=== PATIENT | male | born 1980 | race Caucasian/White ===

== ENCOUNTER 2016-06-27 03:19 | Emergency (ER) | payer OTHER ==
[2016-06-27] MEDS ORDERED: NORMAL SALINE 10 ML SYRINGE FLUSH IVP PRN (03:31)
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
[2016-06-27] MEDS ORDERED: ONDANSETRON 4 MG/2 ML VIAL IVP ONE (03:32)
[2016-06-27] MEDS ORDERED: fentaNYL Inj 100 MCG/2 ML VIAL IVP ONE ×2 (03:32→03:58)
[2016-06-27] MEDS ORDERED: Sodium Chloride 0.9% 1,000 ML PRIMARY IV ONE (03:32)
[2016-06-27 03:46] LABS: BASOPHILS # (AUTO) 0.03 10*3/UL; BASOPHILS % (AUTO) 0.3 % (0-1); EOSINOPHILS % (AUTO) 3.4 % (0-8); HEMATOCRIT 39.2 % (42.0-52.0); HEMOGLOBIN 13.1 g/dL (14.0-18.0); IMM GRAN % (AUTO) 0.3 % (0-5); IMM GRAN# (AUTO) 0.03 10*3/UL; LYMPHOCYTES # (AUTO) 0.97 10*3/uL; LYMPHOCYTES % (AUTO) 8.1 % (10-50); MEAN CORPUSCULAR HEMOGLOBIN 27.5 PG (27-31); MEAN CORPUSCULAR HGB CONC 33.4 g/dL (33-37); MEAN PLATELET VOLUME 9.3 FL (7.4-12.2); MONOCYTES # (AUTO) 1.21 10*3/UL (0.3-0.8); MONOCYTES % (AUTO) 10.1 % (5-15); NEUTROPHILS # (AUTO) 9.32 10*3/UL; NEUTROPHILS % (AUTO) 77.8 % (50-80); RDW COEFFICIENT OF VARIATION 14.8 % (11.5-14.5); RED BLOOD COUNT 4.77 10^6/uL (4.70-6.10); WHITE BLOOD COUNT 11.97 10^3/uL (4.8-10.8)
[2016-06-27 03:48] LABS: PLATELET MORPHOLOGY COMMENT NORMAL MORPHOLOGY (NORM)
[2016-06-27 03:56] VITALS: TEMP 96.9
[2016-06-27 03:56] LABS: ASPARTATE AMINO TRANSFERASE 17 IU/L (21-57); BILIRUBIN,TOTAL 0.9 mg/dL (0.3-1.2); BLOOD UREA NITROGEN 6 mg/dL (7-22); C-REACTIVE PROTEIN 4.1 mg/dL (0.0-0.9); CALCIUM 9.8 mg/dL (8.7-10.7); CHLORIDE 103 meq/L (98-112); EST GLOMERULAR FILTRATION > 60 (>60 ml/min/1.73m(2)); GLUCOSE 126 mg/dL (78-110); POTASSIUM 3.9 meq/L (3.8-5.2); SODIUM 139 meq/L (135-145); TOTAL PROTEIN 8.4 g/dL (6.1-8.0)
--- NOTE | 2016-06-27 04:22 | DI ---
HISTORY: Abdominal pain. COMPARISON: None available. FINDINGS: A single frontal view of the chest reveals clear lungs with no effusion, consolidation, or pneumothorax. The cardiomediastinal silhouette is within normal limits. Flat and upright views of the abdomen reveal several air-fluid levels scattered about the abdomen with stool and gas in the dis tribution of the colon to the distal rectum. This is a nonspecific bowel gas pattern. Surgical mate rial projects over the mid abdomen and right lower quadrant. No free intraperitoneal air is detected . There are no suspicious calcific densities in the distribution of the kidneys or renal or collecti ng system. Osseous structures are normal for age. The soft tissues are unremarkable. IMPRESSION: 1. Flat and upright views of the abdomen reveal several air-fluid levels scattered about the abdomen with stool and gas in the distribution of the colon to the distal rectum. Surgical material projects over the mid abdomen and right lower quadrant.
[2016-06-27 04:26] LABS: ERYTHROCYTE SEDIMENTATION RATE 41 MM/HR (0-15)
[2016-06-27 04:56] VITALS: RESP 18
== END 2016-06-27 04:55 | disposition home or self-care (01) ==
LOC: ER 03:19
DX: K50.10 Crohn's disease of large intestine without complications (principal); R19.7 Diarrhea, unspecified; R11.2 Nausea with vomiting, unspecified; R10.84 Generalized abdominal pain
CPT/HCPCS: 74022; 80053; 83690; 85025; 85652; 86140; 96361; 96374; 96375; 99283 ×2; J3010; J2405; J7030

== ENCOUNTER 2016-06-27 05:35 | Inpatient (IN) | payer OTHER ==
[2016-06-27] MEDS ORDERED: HYDROmorphone 2 MG/1 ML IVP ONE (05:44)
[2016-06-27] MEDS ORDERED: NORMAL SALINE 10 ML SYRINGE FLUSH IVP PRN (05:44)
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
[2016-06-27] MEDS ORDERED: ONDANSETRON 4 MG/2 ML VIAL IVP ONE (06:02)
[2016-06-27] MEDS ORDERED: ONDANSETRON 4 MG/2 ML VIAL ONE (06:03)
--- NOTE | 2016-06-27 07:31 | DI ---
HISTORY: Abdominal pain with Crohn's disease. Evaluate for complications. COMPARISON: 06/06/2016. TECHNIQUE: Multiple CT images were obtained through the abdomen and pelvis with oral and iv contrast . FINDINGS: The lung bases are clear. The liver, gallbladder, spleen and pancreas are unremarkable. There is an umbilical hernia containing a short segment of small bowel. This is the approximate loca tion where the transition occurs from the dilated, more distal small bowel to the normal caliber smal l bowel. There are some very vague inflammatory changes surrounding the descending colon with thickening of th e distal descending colon. Some of the inflammatory changes were seen on the prior examination, but there was not as much thickening of the distal descending colon. There is no fluid collection. There is thickening if the terminal ileum with dilation of approximately 20 cm of small bowel proxima l to the thickening. The distal most portion of the ileum appeared to be of smaller caliber on the p rior examination, but there was no proximal dilation. IMPRESSION: 1. Thickening and narrowing of the caliber of the distal small bowel with dilated bowel proximally. This is more marked than on the comparison examination when there was no appreciable dilation. 2. Focal thickening of the distal descending colon with proximal inflammatory changes of the descendi ng colon, most of which were seen on the prior examination. The thickening however, is mostly new. Correlate with history of inflammatory bowel disease. Consider colonoscopy and correlate with histor y of inflammatory bowel disease.
--- NOTE | 2016-06-27 08:04 | PDOC ---
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 Crohn's disease. 2. Left arm and wrist tendinitis Surgical History: 1. Multiple abdominal surgeries for Crohn's disease including ostomy with takedown eventually. 2. Recent left arm surgery/carpal tunnel with tendon releases and repair Pertinent Family History: Significant for Crohn's disease in one of his aunts. Past Social History: Quit smoking, drinks sparingly, , has 2 children, and since December has gone back to work. Tobacco Use: Former Smoker Substance Use Type: None Medication / Allergies Home Medications: Home Medications Medication Instructions Recorded Confirmed Type Vedolizumab Inj [Entyvio Inj] 300 mg IV MONTHLY vial 05/13/16 06/27/16 History Hydrocodone/Acetaminophen [[place] 1 - 2 tab PO Q6H PRN #12 tab 06/27/16 06/27/16 Rx 5-325 Tablet] Ondansetron Odt [Zofran ODT] 4 mg PO Q8H PRN #9 tab.rapdis 06/27/16 06/27/16 Rx Allergies/Adverse Reactions: Allergies Allergy/AdvReac Type Severity Reaction Status Date / Time adalimumab [From Humira] Allergy RASH Verified 06/27/16 08:55 meperidine HCl [From Demerol] AdvReac Intermediate VOMITING Verified 06/27/16 08 :55 morphine AdvReac Intermediate VOMITING Verified 06/27/16 08:55 infliximab [From Remicade] AdvReac NOT Verified 06/27/16 08:55 APPLICABLE Review of Systems - Respiratory Respiratory: DENIES: Negative System Review, Cough, Sputum, Dyspnea At Rest, Dyspnea with Exertion, Pleuritic Pain, Hemoptysis, Wheezing, Other, See HPI - Cardiovascular Cardiovascular: DENIES: Negative System Review, Chest Pain, Edema, Syncope, Palpitations, Orthopnea, Paroxysmal Nocturnal Dyspnea, Other, See HPI - Gastrointestinal Gastrointestinal / Abdominal: REPORTS: Diarrhea, Abdominal Pain. DENIES: Nausea , Vomiting Exam - Vitals Vital Signs: Vital Signs Temperature 96.6 F Temperature Source Temporal Artery Scan Pulse Rate [Pulse Oximeter] 82 Pulse Rate 90 Respiratory Rate 15 Blood Pressure [Right Arm] 122/84 Blood Pressure 117/81 Pulse Ox 99 Oxygen Delivery Method Nasal Cannula Height 5 ft 11 in Weight 99.79 kg Assessment and Plan - Patient Problems (1) Abdominal pain Current Visit: No Status: Acute (2) Crohn's colitis Current Visit: No Status: Acute (3) Exacerbation of Crohn's disease Current Visit: No Status: Acute - Assessment / Plan Additional Assessment/Plan Details: #1 Crohn's exacerbation we will start steroids at 125 every 6+ Levaquin to try to get this flareup under control his bowel movements are tender to 12 of the loose stools. Taper him off fairly quickly and put him on a tapering dose steroids at that point he will go see the doctors at [facility] in [place] I will also consult to Dr. Carbajal general surgeon to review his CAT scan to make sure we are not dealing with the obstruction I discussed the above plan with the patient which agrees
[2016-06-27] MEDS ORDERED: methylPREDNISolone 125 MG/2 ML VIAL IVP SCH (08:15)
[2016-06-27] MEDS ORDERED: ONDANSETRON 4 MG/2 ML VIAL IVP PRN (08:51)
[2016-06-27] MEDS ORDERED: cefTRIAXone Inj 2 GM in Sodium Chloride 0.9% 100 ML IV SCH (08:51)
[2016-06-27] MEDS: 1/2NS + 20mEq KCL 1,000 ML PRIMARY IV SCH ×2 (09:15→21:15)
[2016-06-27] MEDS: NORMAL SALINE 10 ML SYRINGE FLUSH IVP PRN ×2 (09:16→18:51)
[2016-06-27] MEDS: metroNIDAZOLE 500mg (Premix) 500 MG in Premix 1 BAG IV SCH ×2 (09:16→16:48)
[2016-06-27] MEDS: methylPREDNISolone 125 MG/2 ML VIAL IVP SCH ×3 (09:17→21:25)
[2016-06-27] MEDS: HYDROmorphone 2 MG/1 ML IVP PRN ×3 (09:17→18:50)
[2016-06-27] MEDS: HEPARIN 5000 UNIT/1 ML SUBCUT SCH ×2 (09:59→16:48)
--- NOTE | 2016-06-27 14:32 | CONSULT ---
Consult Note - Consult Consult Date: 06/27/16 Reason for Consult: PreOp Consulation : General Surgery Requesting Physician: Dr. Wilkinson'chaim Primary Care Provider: CHRIST LEVY - History of Present Illness History of Present Illness: Patient is a 35-year-old male with an exacerbation of Crohn's disease. The patient was admitted and I am asked to see him for evaluation. Patient was diagnosed with Crohn's 11 years ago. He's had 2 abdominal surgeries for his Crohn disease. He had a resection with an ileostomy which was followed by a takedown of his ileostomy. He has a hernia at his ileostomy site as well as his umbilicus. These are chronic. Those are not bothering him today. CT scan in the emergency room shows increased thickening and inflammatory changes around the terminal ileum. There is some proximal dilation of the small bowel. There are some inflammatory changes of the descending colon as well. Patient has been started on antibiotics and steroids. Patient is followed by gastroenterology. He's been seen at the [facility] as well. He is tried all the usual medications with no benefit and some of them lead to complications. They are treating his exacerbations with steroids. He is to have a colonoscopy in the relatively near future. Patient has had multiple perianal procedures for fistulas and abscesses. 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 At the time I visited the patient he is feeling quite comfortable. Review of Systems - Gastrointestinal Gastrointestinal / Abdominal: REPORTS: Abdominal Pain, See HPI Past Medical History Medical History: 1. Crohn's disease. 2. Left arm and wrist tendinitis. 3. GERD. 4. Drug-induced Lupus. Surgical History: 1. Two abdominal surgeries for Crohn's disease including resection with ileostomy and subsequent reversal. 2. Left arm surgery/carpal tunnel with tendon releases and repair. 3. Multiple perianal surgeries for Crohn's disease. 4. Appendectomy. 5. Multiple colonoscopies. Pertinent Family History: Significant for Crohn's disease in one of his aunts. Past Social History: Quit smoking, drinks sparingly, , has 2 children, and since December has gone back to work. Tobacco Use: Former Smoker Substance Use Type: None Medication / Allergies Home Medications: Home Medications Medication Instructions Recorded Confirmed Type Vedolizumab Inj [Entyvio Inj] 300 mg IV MONTHLY vial 05/13/16 06/27/16 History Hydrocodone/Acetaminophen [[place] 1 - 2 tab PO Q6H PRN #12 tab 06/27/16 06/27/16 Rx 5-325 Tablet] Ondansetron Odt [Zofran ODT] 4 mg PO Q8H PRN #9 tab.rapdis 06/27/16 06/27/16 Rx Allergies/Adverse Reactions: Allergies Allergy/AdvReac Type Severity Reaction Status Date / Time adalimumab [From Humira] Allergy RASH Verified 06/27/16 08:55 meperidine HCl [From Demerol] AdvReac Intermediate VOMITING Verified 06/27/16 08 :55 morphine AdvReac Intermediate VOMITING Verified 06/27/16 08:55 infliximab [From Remicade] AdvReac NOT Verified 06/27/16 08:55 APPLICABLE Exam - Vitals Vital Signs: Vital Signs Temperature 97.6 F Temperature Source Temporal Artery Scan Pulse Rate [Pulse Oximeter] 80 Respiratory Rate 18 Blood Pressure [Right Arm] 117/77 Pulse Ox 96 Oxygen Delivery Method Room Air Height 5 ft 11 in Weight 102.058 kg - General General Appearance: POSITIVE: No Acute Distress, Cooperative - Respiratory Respiratory Exam: POSITIVE: Clear to Auscultation - Bilaterally, Breathing Non Labored - Cardiovascular Cardiovascular Exam: POSITIVE: RRR, No Murmur - GI/Abdominal GI/Abdominal Exam: POSITIVE: Normal Bowel Sounds, Non Tender, Non Distended, Soft, Hernia (Hernia at the umbilicus which is soft and nontender. Probable hernia at the ileostomy site. Certainly not an acute surgical abdomen at this time.) - Rectal Rectal Exam: POSITIVE: Deferred - Neurological Neurological Exam: POSITIVE: Alert, Oriented x 3 - Psychiatric Psychiatric Exam: POSITIVE: Normal Affect, Normal Mood Results - Labs Labs - Last 24 Hours: Laboratory Results 06/27/16 Range/Units 09:10 Lactic Acid < 0.5 L (0.70-2.10) MMOL/L - Imaging Status: Image Reviewed by Me, Report Reviewed by Me Assessment and Plan - Patient Problems (1) Crohns disease Current Visit: No Status: Acute Diagnosis Date: 06/27/16 Comment: Patient has an acute exacerbation of his chronic Crohn's disease. He is being treated with steroids and antibiotics which is appropriate. Patient does not have an acute or surgical abdomen. Please call if I can be of further assistance. The patient does need surgery would recommend transfer to a higher level of care. (2) Abdominal wall hernia Current Visit: Yes Status: Chronic Comment: Chronic. Asymptomatic.
[2016-06-28] MEDS: HEPARIN 5000 UNIT/1 ML SUBCUT SCH ×3 (01:37→16:50)
[2016-06-28] MEDS: metroNIDAZOLE 500mg (Premix) 500 MG in Premix 1 BAG IV SCH ×3 (01:38→16:50)
[2016-06-28] MEDS: NORMAL SALINE 10 ML SYRINGE FLUSH IVP PRN ×5 (01:52→17:30)
[2016-06-28] MEDS: methylPREDNISolone 125 MG/2 ML VIAL IVP SCH ×4 (01:52→19:30)
[2016-06-28 05:35] LABS: BASOPHILS # (AUTO) 0 10*3/UL; BASOPHILS % (AUTO) 0 % (0-1); EOSINOPHILS % (AUTO) 0 % (0-8); HEMATOCRIT 34.6 % (42.0-52.0); HEMOGLOBIN 11.2 g/dL (14.0-18.0); IMM GRAN % (AUTO) 0.1 % (0-5); IMM GRAN# (AUTO) 0.01 10*3/UL; LYMPHOCYTES # (AUTO) 0.68 10*3/uL; LYMPHOCYTES % (AUTO) 8.1 % (10-50); MEAN CORPUSCULAR HEMOGLOBIN 27.3 PG (27-31); MEAN CORPUSCULAR HGB CONC 32.4 g/dL (33-37); MEAN PLATELET VOLUME 9.8 FL (7.4-12.2); MONOCYTES # (AUTO) 0.19 10*3/UL (0.3-0.8); MONOCYTES % (AUTO) 2.3 % (5-15); NEUTROPHILS % (AUTO) 89.5 % (50-80); RDW COEFFICIENT OF VARIATION 14.7 % (11.5-14.5); RED BLOOD COUNT 4.11 10^6/uL (4.70-6.10); WHITE BLOOD COUNT 8.38 10^3/uL (4.8-10.8)
[2016-06-28 05:40] LABS: PLATELET MORPHOLOGY COMMENT NORMAL MORPHOLOGY (NORM)
[2016-06-28 05:48] LABS: ASPARTATE AMINO TRANSFERASE 12 IU/L (21-57); BILIRUBIN,TOTAL 0.6 mg/dL (0.3-1.2); BLOOD UREA NITROGEN 5 mg/dL (7-22); BUN/CREATININE RATIO 6.25 (6-20); CALCIUM 9.2 mg/dL (8.7-10.7); CHLORIDE 103 meq/L (98-112); CREATININE 0.8 mg/dL (0.70-1.50); EST GLOMERULAR FILTRATION > 60 (>60 ml/min/1.73m(2)); GLUCOSE 145 mg/dL (78-110); POTASSIUM 4.1 meq/L (3.8-5.2); SODIUM 140 meq/L (135-145); TOTAL PROTEIN 7.1 g/dL (6.1-8.0)
[2016-06-28 05:52] LABS: AMYLASE < 30 U/L (30-110)
[2016-06-28] MEDS: 1/2NS + 20mEq KCL 1,000 ML PRIMARY IV SCH ×2 (06:59→19:29)
[2016-06-28] MEDS ORDERED: Levofloxacin 750mg (Premix) 750 MG in Dextrose 1 BAG IV SCH (09:00)
[2016-06-28] MEDS: KETOROLAC 30 MG/1 ML VIAL IVP PRN ×3 (11:34→23:03)
--- NOTE | 2016-06-28 11:49 | PDOC(PROG) ---
Interval History: Patient feels much better today pain is resolved the number of diarrhea episodes have decreased down to around 8 from 12 overall feels improved Objective : Data - Labs CBC and BMP: 06/28/16 04:51 06/28/16 04:51 Labs - Last 24 Hours: Laboratory Results 06/28/16 Range/Units 04:51 WBC 8.38 (4.8-10.8) 10^3/uL RBC 4.11 L (4.70-6.10) 10^6/uL Hgb 11.2 L (14.0-18.0) g/dL Hct 34.6 L (42.0-52.0) % MCV 84.2 (80-90) FL MCH 27.3 (27-31) PG MCHC 32.4 L (33-37) g/dL RDW Std Deviation 44.0 (39-50) fL RDW Coeff of Fidel 14.7 H (11.5-14.5) % Plt Count 451 H (140-350) 10*3/uL MPV 9.8 (7.4-12.2) FL Immature Gran % (Auto) 0.1 (0-5) % Neut % (Auto) 89.5 H (50-80) % Lymph % (Auto) 8.1 L (10-50) % Williamson % (Auto) 2.3 L (5-15) % Eos % (Auto) 0 (0-8) % Baso % (Auto) 0 (0-1) % Immature Gran # (Auto) 0.01 10*3/UL Neut # (Auto) 7.50 10*3/UL Lymph # (Auto) 0.68 10*3/uL Williamson # (Auto) 0.19 L (0.3-0.8) 10*3/UL Eos # (Auto) 0 10*3/UL Baso # (Auto) 0 10*3/UL WBC Morphology Comment Normal morphology (NORM) Plt Morphology Comment Normal morphology (NORM) RBC Morph Comment Normal morphology (NORM) Sodium 140 (135-145) meq/L Potassium 4.1 (3.8-5.2) meq/L Chloride 103 (98-112) meq/L Carbon Dioxide 24 (23-33) meq/L Anion Gap 13 (5-20) BUN 5 L (7-22) mg/dL Creatinine 0.8 (0.70-1.50) mg/dL Estimated GFR > 60 (>60 ml/min/1.73m(2)) BUN/Creatinine Ratio 6.25 (6-20) Glucose 145 H (78-110) mg/dL Calculated Osmolality 289.0 (267-292) mOsm/kg Calcium 9.2 (8.7-10.7) mg/dL Total Bilirubin 0.6 (0.3-1.2) mg/dL AST 12 L (21-57) IU/L ALT 25 (21-72) IU/L Alkaline Phosphatase 89 (38-126) IU/L Total Protein 7.1 (6.1-8.0) g/dL Albumin 3.8 (3.5-4.8) g/dL Globulin 3.3 (2.50-4.10) g/dL Albumin/Globulin Ratio 1.10 L (1.3-2.0) mg/g Amylase < 30 L (30-110) U/L Lipase 28 (23-300) IU/L Objective : Exam - General General Appearance: Cooperative - Respiratory Respiratory Exam: Clear to Auscultation - Bilaterally, Breathing Non Labored, Normal To Percussion - Cardiovascular Cardiovascular Exam: RRR, No Murmur, No Clicks - GI/Abdominal GI/Abdominal Exam: Non Tender, Non Distended, Soft - Extremities Extremities Exam: No Clubbing Present, No Edema Present, No Cyanosis Present Assessment and Plan - Patient Problems (1) Abdominal pain Current Visit: No Status: Acute (2) Crohn's colitis Current Visit: No Status: Acute (3) Exacerbation of Crohn's disease Current Visit: No Status: Acute - Assessment / Plan Additional Assessment/Plan Details: #1 exacerbation of Crohn's colitis responding well to antibiotics and steroids I will decrease steroids from 125 every 4-60 every 4 pain is resolved number of diarrhea episodes of gone down to 8 from 13 most likely patient will need a tapering dose of steroids and follow up with medical clinic the is already making appointments continue antibiotics and IV fluids
[2016-06-28] MEDS: HYDROmorphone 2 MG/1 ML IVP PRN ×3 (13:22→22:49)
[2016-06-28] MEDS ORDERED: Pantoprazole Inj 40 MG in Normal Saline Flush 10 ML IVP ONE (20:18)
[2016-06-29] MEDS: methylPREDNISolone 125 MG/2 ML VIAL IVP SCH ×2 (01:30→08:10)
[2016-06-29] MEDS: HEPARIN 5000 UNIT/1 ML SUBCUT SCH ×2 (01:30→09:10)
[2016-06-29] MEDS: metroNIDAZOLE 500mg (Premix) 500 MG in Premix 1 BAG IV SCH ×2 (01:30→08:22)
[2016-06-29] MEDS: HYDROmorphone 2 MG/1 ML IVP PRN (05:02)
[2016-06-29] MEDS: KETOROLAC 30 MG/1 ML VIAL IVP PRN (05:05)
[2016-06-29] MEDS: 1/2NS + 20mEq KCL 1,000 ML PRIMARY IV SCH (05:06)
[2016-06-29 05:34] LABS: BASOPHILS # (AUTO) 0 10*3/UL; BASOPHILS % (AUTO) 0 % (0-1); EOSINOPHILS % (AUTO) 0 % (0-8); HEMATOCRIT 32.4 % (42.0-52.0); HEMOGLOBIN 10.2 g/dL (14.0-18.0); IMM GRAN % (AUTO) 0.1 % (0-5); IMM GRAN# (AUTO) 0.01 10*3/UL; LYMPHOCYTES # (AUTO) 0.53 10*3/uL; LYMPHOCYTES % (AUTO) 6.9 % (10-50); MEAN CORPUSCULAR HEMOGLOBIN 26.9 PG (27-31); MEAN CORPUSCULAR HGB CONC 31.5 g/dL (33-37); MEAN PLATELET VOLUME 9.7 FL (7.4-12.2); MONOCYTES # (AUTO) 0.56 10*3/UL (0.3-0.8); MONOCYTES % (AUTO) 7.3 % (5-15); NEUTROPHILS # (AUTO) 6.57 10*3/UL; NEUTROPHILS % (AUTO) 85.7 % (50-80); RDW COEFFICIENT OF VARIATION 14.9 % (11.5-14.5); RED BLOOD COUNT 3.79 10^6/uL (4.70-6.10); WHITE BLOOD COUNT 7.67 10^3/uL (4.8-10.8)
[2016-06-29 05:47] LABS: ASPARTATE AMINO TRANSFERASE 13 IU/L (21-57); BILIRUBIN,TOTAL 0.3 mg/dL (0.3-1.2); BLOOD UREA NITROGEN 7 mg/dL (7-22); BUN/CREATININE RATIO 8.75 (6-20); CALCIUM 9.2 mg/dL (8.7-10.7); CHLORIDE 104 meq/L (98-112); CREATININE 0.8 mg/dL (0.70-1.50); EST GLOMERULAR FILTRATION > 60 (>60 ml/min/1.73m(2)); GLUCOSE 139 mg/dL (78-110); POTASSIUM 4.2 meq/L (3.8-5.2); SODIUM 142 meq/L (135-145); TOTAL PROTEIN 6.5 g/dL (6.1-8.0)
[2016-06-29 06:03] LABS: PLATELET MORPHOLOGY COMMENT NORMAL MORPHOLOGY (NORM)
[2016-06-29 08:04] VITALS: RESP 18
[2016-06-29] MEDS ORDERED: HYDROcodone-APAP 5 MG -325 MG TABLET PO PRN (08:37)
--- NOTE | 2016-06-29 08:47 | PDOC(PROG) ---
Date and Time of Service: 06/29/2016 8:43 AM Interval History: Subjective Patient feels much better compared to when he came in. He has a history of Crohn's disease for 11 years or so, he tried multiple medications to control his disease last year none seem to work. He is now on Entyvio which he thinks is not working. He is been on prednisone since October and they tapered him off that and was stopped about a month ago. They tried him also on 6-MP and It sounded like he took it only for a month. He came in because of multiple bowel movements maybe more than 10 times and abdominal pain. He said he normally lives with about 3 or 4 bowel movements a day. He is been to the [facility] last time he was there was in December, he is trying to get another appointment with them. He said since been on high-dose steroid he feels better his bowel movements seem to be improved. Had 3 or 4 bowel movements overnight. There is diarrhea. Pain also seems to be improved. He wants to go home. Objective : Data - Labs CBC and BMP: 06/29/16 05:05 06/29/16 05:05 Labs - Last 24 Hours: Laboratory Results 06/29/16 Range/Units 05:05 WBC 7.67 (4.8-10.8) 10^3/uL RBC 3.79 L (4.70-6.10) 10^6/uL Hgb 10.2 L (14.0-18.0) g/dL Hct 32.4 L (42.0-52.0) % MCV 85.5 (80-90) FL MCH 26.9 L (27-31) PG MCHC 31.5 L (33-37) g/dL RDW Std Deviation 45.1 (39-50) fL RDW Coeff of Fidel 14.9 H (11.5-14.5) % Plt Count 427 H (140-350) 10*3/uL MPV 9.7 (7.4-12.2) FL Immature Gran % (Auto) 0.1 (0-5) % Neut % (Auto) 85.7 H (50-80) % Lymph % (Auto) 6.9 L (10-50) % Ows[place] % (Auto) 7.3 (5-15) % Eos % (Auto) 0 (0-8) % Baso % (Auto) 0 (0-1) % Immature Gran # (Auto) 0.01 10*3/UL Neut # (Auto) 6.57 10*3/UL Lymph # (Auto) 0.53 10*3/uL Owsley # (Auto) 0.56 (0.3-0.8) 10*3/UL Eos # (Auto) 0 10*3/UL Baso # (Auto) 0 10*3/UL WBC Morphology Comment Normal morphology (NORM) Plt Morphology Comment Normal morphology (NORM) RBC Morph Comment Normal morphology (NORM) Sodium 142 (135-145) meq/L Potassium 4.2 (3.8-5.2) meq/L Chloride 104 (98-112) meq/L Carbon Dioxide 27 (23-33) meq/L Anion Gap 11 (5-20) BUN 7 (7-22) mg/dL Creatinine 0.8 (0.70-1.50) mg/dL Estimated GFR > 60 (>60 ml/min/1.73m(2)) BUN/Creatinine Ratio 8.75 (6-20) Glucose 139 H (78-110) mg/dL Calculated Osmolality 293.0 H (267-292) mOsm/kg Calcium 9.2 (8.7-10.7) mg/dL Total Bilirubin 0.3 (0.3-1.2) mg/dL AST 13 L (21-57) IU/L ALT 27 (21-72) IU/L Alkaline Phosphatase 80 (38-126) IU/L Total Protein 6.5 (6.1-8.0) g/dL Albumin 3.4 L (3.5-4.8) g/dL Globulin 3.1 (2.50-4.10) g/dL Albumin/Globulin Ratio 1.00 L (1.3-2.0) mg/g Objective : Exam - General General Appearance: No Acute Distress, Cooperative - Head Head Exam: Normal Inspection - Eye Eye Exam: Normal Appearance - ENT ENT Exam: Normal Exam - Neck Neck Exam: Normal Inspection - Respiratory Respiratory Exam: Clear to Auscultation - Bilaterally - Cardiovascular Cardiovascular Exam: RRR - GI/Abdominal GI/Abdominal Exam: Normal Bowel Sounds, Non Tender, Non Distended, Soft - Rectal Rectal Exam: Deferred - External Exam: Deferred - Extremities Extremities Exam: Normal Inspection - Back Back Exam: Normal Inspection - Neurological Neurological Exam: Alert, Oriented x 3, CN II-XII Intact, Moves All Extremities Equally - Psychiatric Psychiatric Exam: Normal Affect - Integumentary Integumentary Exam: Normal Color Assessment and Plan - Patient Problems (1) Crohn's disease, acute Status: Acute Comment: He wants to go home I think we'll try to switch him to oral steroid DC the IV steroid, DC the fluid switch antibiotics to oral. We'll check on him in the afternoon and see if he still okay then maybe send him home. Also switch to oral pain medications. I did tell him if we discharge him start him on a high dose of steroid but he needs additional medication so he may need to go back on the 6-MP it seems that he ran out of the 6-MP and I suggested that he follow-up also with a client services assistant. Qualifiers: Digestive disease complication type: without complication Qualifier Code(s): (K50.90) Crohn's disease, unspecified, without complications (2) DVT prophylaxis Status: Acute Comment: He is on heparin.
[2016-06-29] MEDS ORDERED: Pantoprazole Inj 40 MG in Normal Saline Flush 10 ML IVP SCH (09:00)
[2016-06-29] MEDS ORDERED: PANTOPRAZOLE 40 MG TABLET PO SCH (09:00)
[2016-06-29 11:26] VITALS: TEMP 98.2
[2016-06-29] MEDS ORDERED: predniSONE Tab 20 MG TAB PO SCH (11:30)
--- NOTE | 2016-06-29 12:29 | DCSUMMARY ---
Hospitalization Summary Admit Date: 06/27/16 Discharge Date: 06/29/16 Hospital Course: Discharge instruction 1. Exacerbation of Crohn's disease 2. History of drug-induced lupus secondary to Remicade Hospital course This is a 35 years old male with medical history significant for history of Crohn's disease for 11 years, he was on multiple medications including biological agents that included Humira last time he was here he was on Remicade however that induced lupus and he was taking off that he was on prednisone and recently was on 6-MP and Entyvio, the prednisone he was on since October and they tapered him off about 6 weeks ago. He was on the 6-MP for about a month and was stopped about a month ago. He came into the hospital because of increasing abdominal pain and multiple bowel movements and had a CT of the abdomen which showed thickening and narrowing of the caliber of the distal small bowel with dilated bowel proximally this is more marked than on the previous examination in addition he had focal thickening of the distal descending colon with proximal changes of the descending colon, most of which were seen on the prior examination. The thickening however is mostly new. Patient was admitted to the hospital as an exacerbation of Crohn's disease he was started on high doses of Solu Medrol. In addition was started also on Flagyl and Levaquin. I saw him on the day of discharge he was feeling much better his pain seemed to be improved. The frequency of his bowel movement also lessened. We switched, him to oral prednisone oral pain medication I checked later on him at lunchtime and he is still doing better we thought that he could be discharged home on high oral dose prednisone and Levaquin and Flagyl. I did tell him that will keep him on such dosage of prednisone until he see GI, which he'll try to get an appointment with and then at that time if they agree start tapering the prednisone off. I think likely though he'll need an additional agent to try to control his disease and that probably would help lowering the dosage of steroid. He also will try to get an appointment with [facility]. Laboratory Results 06/27/16 06/28/16 06/29/16 Range/Units 09:10 04:51 05:05 WBC 8.38 7.67 (4.8-10.8) 10^3/uL RBC 4.11 L 3.79 L (4.70-6.10) 10^6/uL Hgb 11.2 L 10.2 L (14.0-18.0) g/dL Hct 34.6 L 32.4 L (42.0-52.0) % MCV 84.2 85.5 (80-90) FL MCH 27.3 26.9 L (27-31) PG MCHC 32.4 L 31.5 L (33-37) g/dL RDW Std Deviation 44.0 45.1 (39-50) fL RDW Coeff of Fidel 14.7 H 14.9 H (11.5-14.5) % Plt Count 451 H 427 H (140-350) 10*3/uL MPV 9.8 9.7 (7.4-12.2) FL Immature Gran % (Auto) 0.1 0.1 (0-5) % Neut % (Auto) 89.5 H 85.7 H (50-80) % Lymph % (Auto) 8.1 L 6.9 L (10-50) % Jones % (Auto) 2.3 L 7.3 (5-15) % Eos % (Auto) 0 0 (0-8) % Baso % (Auto) 0 0 (0-1) % Immature Gran # (Auto) 0.01 0.01 10*3/UL Neut # (Auto) 7.50 6.57 10*3/UL Lymph # (Auto) 0.68 0.53 10*3/uL Jones # (Auto) 0.19 L 0.56 (0.3-0.8) 10*3/UL Eos # (Auto) 0 0 10*3/UL Baso # (Auto) 0 0 10*3/UL WBC Morphology Comment Normal morphology Normal morphology (NORM) Plt Morphology Comment Normal morphology Normal morphology (NORM) RBC Morph Comment Normal morphology Normal morphology (NORM) Sodium 140 142 (135-145) meq/L Potassium 4.1 4.2 (3.8-5.2) meq/L Chloride 103 104 (98-112) meq/L Carbon Dioxide 24 27 (23-33) meq/L Anion Gap 13 11 (5-20) BUN 5 L 7 (7-22) mg/dL Creatinine 0.8 0.8 (0.70-1.50) mg/dL Estimated GFR > 60 > 60 (>60 ml/min/1.73m(2)) BUN/Creatinine Ratio 6.25 8.75 (6-20) Glucose 145 H 139 H (78-110) mg/dL Calculated Osmolality 289.0 293.0 H (267-292) mOsm/kg Lactic Acid < 0.5 L (0.70-2.10) MMOL/L Calcium 9.2 9.2 (8.7-10.7) mg/dL Total Bilirubin 0.6 0.3 (0.3-1.2) mg/dL AST 12 L 13 L (21-57) IU/L ALT 25 27 (21-72) IU/L Alkaline Phosphatase 89 80 (38-126) IU/L Total Protein 7.1 6.5 (6.1-8.0) g/dL Albumin 3.8 3.4 L (3.5-4.8) g/dL Globulin 3.3 3.1 (2.50-4.10) g/dL Albumin/Globulin Ratio 1.10 L 1.00 L (1.3-2.0) mg/g Amylase < 30 L (30-110) U/L Lipase 28 (23-300) IU/L Discharge instruction Diet clear liquid advance as started Medications Laboratory Results 06/27/16 06/28/16 06/29/16 Range/Units 09:10 04:51 05:05 WBC 8.38 7.67 (4.8-10.8) 10^3/uL RBC 4.11 L 3.79 L (4.70-6.10) 10^6/uL Hgb 11.2 L 10.2 L (14.0-18.0) g/dL Hct 34.6 L 32.4 L (42.0-52.0) % MCV 84.2 85.5 (80-90) FL MCH 27.3 26.9 L (27-31) PG MCHC 32.4 L 31.5 L (33-37) g/dL RDW Std Deviation 44.0 45.1 (39-50) fL RDW Coeff of Fidel 14.7 H 14.9 H (11.5-14.5) % Plt Count 451 H 427 H (140-350) 10*3/uL MPV 9.8 9.7 (7.4-12.2) FL Immature Gran % (Auto) 0.1 0.1 (0-5) % Neut % (Auto) 89.5 H 85.7 H (50-80) % Lymph % (Auto) 8.1 L 6.9 L (10-50) % Jones % (Auto) 2.3 L 7.3 (5-15) % Eos % (Auto) 0 0 (0-8) % Baso % (Auto) 0 0 (0-1) % Immature Gran # (Auto) 0.01 0.01 10*3/UL Neut # (Auto) 7.50 6.57 10*3/UL Lymph # (Auto) 0.68 0.53 10*3/uL Jones # (Auto) 0.19 L 0.56 (0.3-0.8) 10*3/UL Eos # (Auto) 0 0 10*3/UL Baso # (Auto) 0 0 10*3/UL WBC Morphology Comment Normal morphology Normal morphology (NORM) Plt Morphology Comment Normal morphology Normal morphology (NORM) RBC Morph Comment Normal morphology Normal morphology (NORM) Sodium 140 142 (135-145) meq/L Potassium 4.1 4.2 (3.8-5.2) meq/L Chloride 103 104 (98-112) meq/L Carbon Dioxide 24 27 (23-33) meq/L Anion Gap 13 11 (5-20) BUN 5 L 7 (7-22) mg/dL Creatinine 0.8 0.8 (0.70-1.50) mg/dL Estimated GFR > 60 > 60 (>60 ml/min/1.73m(2)) BUN/Creatinine Ratio 6.25 8.75 (6-20) Glucose 145 H 139 H (78-110) mg/dL Calculated Osmolality 289.0 293.0 H (267-292) mOsm/kg Lactic Acid < 0.5 L (0.70-2.10) MMOL/L Calcium 9.2 9.2 (8.7-10.7) mg/dL Total Bilirubin 0.6 0.3 (0.3-1.2) mg/dL AST 12 L 13 L (21-57) IU/L ALT 25 27 (21-72) IU/L Alkaline Phosphatase 89 80 (38-126) IU/L Total Protein 7.1 6.5 (6.1-8.0) g/dL Albumin 3.8 3.4 L (3.5-4.8) g/dL Globulin 3.3 3.1 (2.50-4.10) g/dL Albumin/Globulin Ratio 1.10 L 1.00 L (1.3-2.0) mg/g Amylase < 30 L (30-110) U/L Lipase 28 (23-300) IU/L Follow-up with GI in 1-2 weeks Condition at discharge was stable for discharge Exam - Vitals Vital Signs: Vital Signs Temperature 98.2 F Temperature Source Temporal Artery Scan Pulse Rate [Apical] 80 Pulse Rate [Pulse Oximeter] 78 Respiratory Rate 18 Blood Pressure [Right Arm] 144/85 Pulse Ox 97 Oxygen Delivery Method Room Air Height 5 ft 11 in Weight 224 lb 6.4 oz Patient Problems - Patient Problem List (1) Crohn's disease, acute Status: Acute Qualifiers: Digestive disease complication type: without complication Qualifier Code(s): (K50.90) Crohn's disease, unspecified, without complications (2) DVT prophylaxis Status: Acute
[2016-06-29] MEDS ORDERED: metroNIDAZOLE Tab 500 MG TAB PO SCH (17:00)
== END 2016-06-29 12:33 | disposition home or self-care (01) | DRG 387 ==
LOC: ER 05:35 → MED/SURG 07:55
PROVIDERS: ADMIT Internal Medicine; ATTEND Internal Medicine
DX: K50.90 Crohn's disease, unspecified, without complications (principal); M32.0 Drug-induced systemic lupus erythematosus; T50.995D Adverse effect of other drugs, medicaments and biological substances, subsequent encounter
CPT/HCPCS: 36415; 74177; 80053; 82150; 83605; 83690; 85025; 87641; 94761; 96374; 96375; 99285; J0696; J1170; J1644; J1885; J2405; J3490; J7050; J7512

== ENCOUNTER → 2016-09-02 | Outpatient (CLI) | payer OTHER ==
[2016-09-04 13:49] LABS: PARASITIC EXAM FIN 1421 (())
== END ==
LOC: LAB 15:44
PROVIDERS: ATTEND Internal Medicine Gastroenterology
DX: R19.7 Diarrhea, unspecified (principal)
CPT/HCPCS: 83630; 87046; 87177; 87209; 87328; 87329; 87493

== ENCOUNTER → 2016-09-16 | Outpatient (CLI) | payer OTHER | LOC: MMPC 09:00 | PROVIDERS: ATTEND Family Medicine | DX: K50.90 Crohn's disease, unspecified, without complications (principal); A09 Infectious gastroenteritis and colitis, unspecified | CPT/HCPCS: 99213; G0463 ==

== ENCOUNTER → 2016-09-17 | Outpatient (CLI) | payer OTHER | LOC: LAB 10:59 | PROVIDERS: ATTEND Family Medicine | DX: K50.00 Crohn's disease of small intestine without complications (principal); A09 Infectious gastroenteritis and colitis, unspecified; Z72.0 Tobacco use | CPT/HCPCS: 87046; 87077; 87186; 87493 ==

== ENCOUNTER 2016-09-26 11:13 | Emergency (ER) | payer OTHER ==
[2016-09-26] MEDS ORDERED: NORMAL SALINE 10 ML SYRINGE FLUSH IVP PRN (11:20)
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
[2016-09-26] MEDS: Sodium Chloride 0.9% 1,000 ML PRIMARY IV ONE (11:29)
[2016-09-26] MEDS: ONDANSETRON 4 MG/2 ML VIAL IVP ONE (11:31)
[2016-09-26] MEDS: MORPHINE SULFATE 2 MG/1 ML IVP ONE (11:31)
[2016-09-26 11:43] VITALS: RESP 16; TEMP 97.5
[2016-09-26 11:43] LABS: BASOPHILS # (AUTO) 0.04 10*3/UL; BASOPHILS % (AUTO) 0.4 % (0-1); HEMATOCRIT 41.6 % (42.0-52.0); HEMOGLOBIN 13.1 g/dL (14.0-18.0); LYMPHOCYTES # (AUTO) 1.01 10*3/uL; MEAN CORPUSCULAR HEMOGLOBIN 26.6 PG (27-31); MEAN CORPUSCULAR HGB CONC 31.5 g/dL (33-37); MEAN CORPUSCULAR VOLUME 84.4 FL (80-90); MONOCYTES # (AUTO) 0.71 10*3/UL (0.3-0.8); NEUTROPHILS # (AUTO) 8.18 10*3/UL; NEUTROPHILS % (AUTO) 80.5 % (50-80); RED BLOOD COUNT 4.93 10^6/uL (4.70-6.10)
[2016-09-26 11:44] LABS: PLATELET MORPHOLOGY COMMENT NORMAL MORPHOLOGY (NORM); RBC MORPHOLOGY COMMENT NORMAL MORPHOLOGY (NORM); WBC MORPHOLOGY COMMENT NORMAL MORPHOLOGY (NORM)
[2016-09-26 11:54] LABS: BLOOD UREA NITROGEN 4 mg/dL (7-22); C-REACTIVE PROTEIN 0.6 mg/dL (0.0-0.9); EST GLOMERULAR FILTRATION > 60 (>60 ml/min/1.73m(2)); LIPASE 48 IU/L (23-300); SERUM ALBUMIN 4.2 g/dL (3.5-4.8)
[2016-09-26] MEDS: KETOROLAC 30 MG/1 ML VIAL IVP ONE (12:13)
[2016-09-26] MEDS: POTASSIUM CHLORIDE 40 MEQ/15 ML UD CUP PO ONE (12:14)
[2016-09-26] MEDS: POTASSIUM CHLORIDE 20 MEQ TAB PO ONE (12:18)
== END 2016-09-26 13:20 | disposition home or self-care (01) ==
LOC: ER 11:13
DX: K50.118 Crohn's disease of large intestine with other complication (principal); K52.89 Other specified noninfective gastroenteritis and colitis; R11.0 Nausea; R10.84 Generalized abdominal pain
CPT/HCPCS: 80053; 83690; 85025; 86140; 96361; 96374; 96375; 99282; 99283; J1885; J2270; J2405; J7030

== ENCOUNTER 2016-11-04 04:21 | Inpatient (IN) | payer OTHER ==
[2016-11-04] MEDS ORDERED: KETOROLAC 30 MG/1 ML VIAL IVP ONE (04:42)
[2016-11-04] MEDS ORDERED: ONDANSETRON 4 MG/2 ML VIAL IVP ONE (04:42)
[2016-11-04] MEDS ORDERED: NORMAL SALINE 10 ML SYRINGE FLUSH IVP PRN ×5 (04:42→07:12)
[2016-11-04] MEDS ORDERED: Sodium Chloride 0.9% 1,000 ML PRIMARY IV ONE ×3 (04:42→19:11)
[2016-11-04] MEDS ORDERED: HYDROmorphone 2 MG/1 ML IVP ONE (04:44)
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
[2016-11-04 04:59] LABS: BASOPHILS # (AUTO) 0.02 10*3/UL; BASOPHILS % (AUTO) 0.2 % (0-1); EOSINOPHILS # (AUTO) 0.01 10*3/UL; EOSINOPHILS % (AUTO) 0.1 % (0-8); HEMATOCRIT 38.1 % (42.0-52.0); HEMOGLOBIN 12.3 g/dL (14.0-18.0); LYMPHOCYTES # (AUTO) 0.18 10*3/uL; MEAN CORPUSCULAR HEMOGLOBIN 27.2 PG (27-31); MEAN CORPUSCULAR HGB CONC 32.3 g/dL (33-37); MEAN CORPUSCULAR VOLUME 84.3 FL (80-90); MEAN PLATELET VOLUME 10.2 FL (7.4-12.2); MONOCYTES # (AUTO) 0.62 10*3/UL (0.3-0.8); MONOCYTES % (AUTO) 7.7 % (5-15); NEUTROPHILS # (AUTO) 7.23 10*3/UL; NEUTROPHILS % (AUTO) 89.7 % (50-80); RED BLOOD COUNT 4.52 10^6/uL (4.70-6.10)
[2016-11-04 05:08] LABS: PLATELET MORPHOLOGY COMMENT NORMAL MORPHOLOGY (NORM); RBC MORPHOLOGY COMMENT NORMAL MORPHOLOGY (NORM); WBC MORPHOLOGY COMMENT NORMAL MORPHOLOGY (NORM)
[2016-11-04 05:09] LABS: BLOOD UREA NITROGEN 7 mg/dL (7-22); BUN/CREATININE RATIO 7.77 (6-20); CALCIUM 8.6 mg/dL (8.7-10.7); EST GLOMERULAR FILTRATION > 60 (>60 ml/min/1.73m(2))
[2016-11-04 05:11] LABS: C-REACTIVE PROTEIN 4.1 mg/dL (0.0-0.9); MAGNESIUM 1.4 mg/dL (1.6-2.4)
[2016-11-04] MEDS ORDERED: Magnesium Sulfate 2gm (Premix) 2 GM in Premix 1 BAG IV ONE ×2 (05:41→12:16)
[2016-11-04] MEDS: D5-1/2NS + 20mEq KCL 1,000 ML PRIMARY IV ONE ×2 (05:55→06:00)
[2016-11-04] MEDS ORDERED: Cefepime Inj 2 GM in Sodium Chloride 0.9% 100 ML IV ONE (05:57)
[2016-11-04] MEDS ORDERED: MORPHINE SULFATE 2 MG/1 ML IVP PRN ×2 (06:26→07:12)
[2016-11-04] MEDS ORDERED: LIDOCAINE W/ SODIUM BICARB 0.5 ML SYR SUBD PRN ×2 (06:26→07:12)
[2016-11-04] MEDS ORDERED: ONDANSETRON 4 MG/2 ML VIAL IVP PRN ×2 (06:26→07:12)
[2016-11-04] MEDS ORDERED: 1/2NS + 20mEq KCL 1,000 ML PRIMARY IV SCH (06:30)
[2016-11-04] MEDS ORDERED: Cefepime Inj 2 GM in Sodium Chloride 0.9% 100 ML IV SCH ×2 (06:45→15:00)
[2016-11-04] MEDS: 1/2NS + 20mEq KCL 1,000 ML PRIMARY IV SCH ×2 (07:54→20:41)
--- NOTE | 2016-11-04 08:12 | DI ---
PA /LATERAL CHEST X-RAY, 11/04/2016 4:42 AM : Clinical History: Fever. Cough. Previous Exam: 06/27/2016. There is no acute soft tissue or bony abnormality. Heart size is normal. Lungs are clear. Mediastinal structures are normal. There are no pulmonary nodules. Reading: Normal chest x-ray. There has been no interval change.
[2016-11-04] MEDS: DICYCLOMINE 20 MG TABLET PO SCH ×2 (08:52→20:47)
[2016-11-04] MEDS: Pantoprazole Inj 40 MG in Normal Saline Flush 10 ML IVP SCH (08:53)
[2016-11-04] MEDS: ENOXAPARIN SODIUM 40 MG/0.4 ML SYRINGE SUBCUT SCH (08:53)
[2016-11-04] MEDS ORDERED: BUDESONIDE 9 MG PO SCH (09:00)
[2016-11-04] MEDS ORDERED: ENOXAPARIN SODIUM 40 MG/0.4 ML SYRINGE SUBCUT SCH (09:00)
[2016-11-04] MEDS ORDERED: Pantoprazole Inj 40 MG in Normal Saline Flush 10 ML IVP SCH (09:00)
--- NOTE | 2016-11-04 09:45 | DI ---
CT ABDOMEN SCAN WITH IV CONTRAST, 11/04/2016 7:12 AM : Clinical History: Abdominal pain. Previous Exam: This patient has had multiple CT scans of the abdomen and pelvis, and the most recent study was performed on 06/27/2016. Scans are performed from the lower lung bases through the liver and kidneys with IV contrast. 95 ml o f Isovue 300 was injected IV. No oral or rectal contrast was ordered. The lung bases are clear. The liver is normal. The gallbladder is grossly normal. There is no abnorma lity of the spleen, pancreas, and adrenal glands. Both kidneys are normal in size, shape, position an d contour. There is no hydronephrosis or hydroureter. No renal or ureteral calculi are present. There are no abnormal retrocrural or periaortic nodes. No ascites is present. READING: Normal CT abdomen scan. CT PELVIS SCAN WITH IV CONTRAST, 11/04/2016 7:12 AM: Clinical History: See above. Previous Exam: This patient has had multiple CT scans of the abdomen and pelvis, and the most recent study was performed on 06/27/2016. Scans are performed from just superior to the umbilicus to the symphysis pubis with IV contrast. This is the same bolus of contrast used for the CT scans of the abdomen. Scans through the lower abdomen and pelvis show no masses or abnormal fluid collections. There is no adenopathy. The patient is status post previous surgery in the cecum and ascending colon. This patien t most likely has had resection of the cecum with an end-to-end anastomosis with the small bowel. The descending colon from just distal to the splenic flexure to just proximal to the sigmoid colon shows periserosal inflammatory change with thickening of the mucosa and abnormal enhancement. This was pre sent on the previous exam although not as pronounced as on the current study. The findings are indica tive of active Crohn's disease. The small bowel, terminal ileum, and ileocecal valve are normal, but there is an umbilical hernia through which a loop of small bowel has herniated without evidence of ob struction. The patient has also had a previous ostomy site in the right lower quadrant and there is a loop of small bowel that has herniated through the defect without evidence of obstruction. READIN. There is evidence of active Crohn's disease in the descending colon between the splenic flexure a nd the sigmoid colon. The patient is status post presumed resection of the cecum with an end to end a nastomosis. There is no evidence of active Crohn's disease in the small bowel or in the remaining por tions of the colon. 2. There is an umbilical hernia that contains a loop of small bowel and there is a previous ostomy s ite in the right lower quadrant that also contains a loop of small bowel. Both hernia sites show no e vidence of obstruction.
[2016-11-04 10:06] LABS: BILIRUBIN,URINE NEGATIVE (NEG); CLARITY,URINE CLEAR (CLEAR); COLOR,URINE YELLOW; GLUCOSE, URINE (UA) NEGATIVE (NEG); NITRATE,URINE NEGATIVE (NEG); OCCULT BLOOD,URINE NEGATIVE (NEG); PH,URINE 6.5 (5.0-8.5); PROTEIN,URINE NEGATIVE (NEG); UROBILINOGEN,URINE 0.2 EU/dL (0.2)
[2016-11-04 10:11] LABS: URINE SAMPLE TYPE CLEAN CATCH URINE
[2016-11-04] MEDS: BUDESONIDE 9 MG PO SCH (11:23)
[2016-11-04] MEDS ORDERED: Acetaminophen 1000mg Inj 100 ML IV ONE (11:30)
[2016-11-04] MEDS ORDERED: ACETAMINOPHEN 500 MG TABLET PO ONE (11:30)
--- NOTE | 2016-11-04 12:15 | PDOC ---
History and Physical - History of Present Illness History of Present Illness: This very nice 36-year-old gentleman with past medical history significant for Crohn's. He was also treated for C. difficile and Salmonella with Levaquin and Flagyl in August and September of this month. He was also on multiple biologicals and had lupus slice-like reactions to it to them his [place] [facility] tier is Dr. Darío Miramontes he is now on budesonide 9 mg daily for his Crohn's. He comes into the ER with fever and chills joint aches. He said he has the diarrhea is 3 times a day which is his normal and also on physical exam his belly is non- painful. CT scan of his abdomen and pelvis reveal active Crohn's disease but no perforations or abscesses. Chest x-ray is negative and UA is negative as well. He will be admitted for most likely Crohn's disease with a differential also this could be a viral illness. Denies any upper respiratory symptoms as well. This happened while he was fishing on his way home he started having shaking chills and fever. Past Medical History Medical History: 1. Crohn's disease. 2. Left arm and wrist tendinitis. 3. GERD. 4. Drug-induced Lupus. Surgical History: 1. Two abdominal surgeries for Crohn's disease including resection with ileostomy and subsequent reversal. 2. Left arm surgery/carpal tunnel with tendon releases and repair. 3. Multiple perianal surgeries for Crohn's disease. 4. Appendectomy. 5. Multiple colonoscopies. Pertinent Family History: Significant for Crohn's disease in one of his aunts. Past Social History: Quit smoking, drinks sparingly, , has 2 children, and since December has gone back to work. Tobacco Use: Current Every Day Smoker Substance Use Type: None Medication / Allergies Home Medications: Home Medications Medication Instructions Recorded Confirmed Type Budesonide [Budesonide Ec] 9 mg PO DAILY cap 09/16/16 11/04/16 History Metronidazole [Flagyl] 1 tab-cap PO TID #42 tab 09/17/16 11/04/16 Clinic Dicyclomine HCl 10 mg PO BID #30 capsule 09/26/16 11/04/16 Rx Ondansetron Odt [Zofran ODT] 4 mg PO TID PRN #10 tab.rapdis 09/26/16 11/04/16 Rx Allergies/Adverse Reactions: Allergies Allergy/AdvReac Type Severity Reaction Status Date / Time adalimumab [From Humira] Allergy RASH Verified 09/26/16 11:24 ibuprofen Allergy SWELLING Verified 11/04/16 04:28 meperidine HCl [From Demerol] AdvReac Intermediate VOMITING Verified 06/28/16 00 :51 infliximab [From Remicade] AdvReac NOT Verified 09/26/16 11:24 APPLICABLE Exam - Vitals Vital Signs: Vital Signs Temperature 103.1 F Temperature Source Oral Pulse Rate [Pulse Oximeter] 105 Pulse Rate 84 Respiratory Rate 14 Blood Pressure [Left Arm] 128/83 Blood Pressure 108/70 Pulse Ox 92 Oxygen Delivery Method Nasal Cannula Height 5 ft 11 in Weight 99.79 kg - General General Appearance: POSITIVE: No Acute Distress, Cooperative - Eye Eye Exam: POSITIVE: Normal Appearance, PERRL, EOMI - Neck Neck Exam: POSITIVE: Normal Inspection, Full ROM - Respiratory Respiratory Exam: POSITIVE: Clear to Auscultation - Bilaterally, Breathing Non Labored, Normal To Percussion, Normal to Percussion and Palpation - Cardiovascular Cardiovascular Exam: POSITIVE: RRR, No Murmur, No Clicks, No Gallops - GI/Abdominal GI/Abdominal Exam: POSITIVE: Normal Bowel Sounds, Non Tender, Non Distended, Soft - Extremities Extremities Exam: POSITIVE: No Clubbing Present, No Edema Present Results - Labs CBC and BMP: 11/04/16 04:45 11/04/16 04:45 Labs - Last 24 Hours: Laboratory Results 11/04/16 Range/Units 09:38 Ur Collection Type Clean catch urine Urine Color Yellow Urine Clarity Clear (CLEAR) Urine pH 6.5 (5.0-8.5) Ur Specific [place] 1.010 (1.005-1.030) Urine Protein Negative (NEG) mg/dl Urine Glucose (UA) Negative (NEG) mg/dL Urine Ketones Negative (NEG) Urine Occult Blood Negative (NEG) Urine Nitrate Negative (NEG) Urine Bilirubin Negative (NEG) Urine Urobilinogen 0.2 (0.2) EU/dL Ur Leukocyte Esterase Negative (NEG) Ur Culture Indicated? Culture not set Assessment and Plan - Patient Problems (1) Hypokalemia Current Visit: Yes Status: Acute (2) Hypomagnesemia Current Visit: Yes Status: Acute (3) Crohn's disease, acute Current Visit: No Status: Acute - Assessment / Plan Additional Assessment/Plan Details: #1 Crohn's exacerbation confirmed on CT scan patient does not have increased diarrhea or abdominal pain which is unusual never did look less I am obligated to treat him for Crohn's exacerbation at this time I will start IV steroids and Levaquin. Initially he received the cefepime and Vanco since we did not know the nature of his illness blood cultures were obtained. Chest x-ray was negative UA was negative and patient has no upper respiratory symptoms this could definitely be a viral syndrome as well. We will treat his fever with Tylenol I discussed the case with Dr. joseph Aguilar general surgery he also agrees with the plan #2 severe hypokalemia and hypomagnesemiareplace with IV fluids and potassium and 2 g +2 g of magnesium. #3 dehydration we'll give 1 L bolus plus normal saline at 125 an hour with 20 of K Photo / Body Diagrams - Uploaded Photos Uploaded Photos:
[2016-11-04 12:32] LABS: ABG BASE EXCESS -5 MMOL/L (-2-2); ABG OXYGEN SATURATION 88 % (90-100); ABG PCO2 29 MMHG (34-38); ABG PH 7.43 (7.35-7.45); ABG PO2 52 MMHG (65-75); ALLEN TEST Y; COLLECTION SITE R RADIAL
[2016-11-04] MEDS: methylPREDNISolone 125 MG/2 ML VIAL IVP SCH ×2 (12:44→20:47)
[2016-11-04] MEDS: POTASSIUM CHLORIDE 20 MEQ TAB PO SCH (20:47)
[2016-11-05] MEDS: methylPREDNISolone 125 MG/2 ML VIAL IVP SCH ×3 (01:25→12:51)
[2016-11-05] MEDS: 1/2NS + 20mEq KCL 1,000 ML PRIMARY IV SCH ×2 (04:41→14:31)
[2016-11-05] MEDS: BUDESONIDE 9 MG PO SCH ×2 (04:45→09:25)
[2016-11-05 05:10] LABS: BASOPHILS # (AUTO) 0 10*3/UL; BASOPHILS % (AUTO) 0 % (0-1); EOSINOPHILS # (AUTO) 0 10*3/UL; EOSINOPHILS % (AUTO) 0 % (0-8); HEMATOCRIT 37.9 % (42.0-52.0); HEMOGLOBIN 11.8 g/dL (14.0-18.0); LYMPHOCYTES # (AUTO) 0.32 10*3/uL; MEAN CORPUSCULAR HEMOGLOBIN 26.6 PG (27-31); MEAN CORPUSCULAR HGB CONC 31.1 g/dL (33-37); MEAN CORPUSCULAR VOLUME 85.6 FL (80-90); MONOCYTES # (AUTO) 0.06 10*3/UL (0.3-0.8); NEUTROPHILS # (AUTO) 5.46 10*3/UL; NEUTROPHILS % (AUTO) 93.3 % (50-80); RED BLOOD COUNT 4.43 10^6/uL (4.70-6.10)
[2016-11-05 05:17] LABS: BLOOD UREA NITROGEN 6 mg/dL (7-22); BUN/CREATININE RATIO 8.57 (6-20); CALCIUM 8.7 mg/dL (8.7-10.7); EST GLOMERULAR FILTRATION > 60 (>60 ml/min/1.73m(2)); LIPASE 22 IU/L (23-300); SERUM ALBUMIN 3.5 g/dL (3.5-4.8)
[2016-11-05 05:21] LABS: PLATELET MORPHOLOGY COMMENT NORMAL MORPHOLOGY (NORM); RBC MORPHOLOGY COMMENT NORMAL MORPHOLOGY (NORM); WBC MORPHOLOGY COMMENT NORMAL MORPHOLOGY (NORM)
[2016-11-05] MEDS ORDERED: Levofloxacin 750mg (Premix) 750 MG in Dextrose 1 BAG IV SCH (09:00)
[2016-11-05] MEDS: Pantoprazole Inj 40 MG in Normal Saline Flush 10 ML IVP SCH (09:14)
[2016-11-05] MEDS: ENOXAPARIN SODIUM 40 MG/0.4 ML SYRINGE SUBCUT SCH (09:14)
[2016-11-05] MEDS: DICYCLOMINE 20 MG TABLET PO SCH (09:15)
[2016-11-05] MEDS: POTASSIUM CHLORIDE 20 MEQ TAB PO SCH (09:16)
[2016-11-05 11:31] VITALS: RESP 18; TEMP 98.2
--- NOTE | 2016-11-05 13:03 | DCSUMMARY ---
Hospitalization Summary Admit Date: 11/04/16 Discharge Date: 11/05/16 Primary Diagnosis:: Crohn's disease exacerbation with chills Hospital Course: This very pleasant 36-year-old male well-known to the hospital service with underlying Crohn's disease. He came in with sudden onset of chills [place]. He states that he was having fevers and has had them intermittently at home over the last week or so. He is on budesonide for Crohn's disease, and has failed tumor necrosis factors. The chills were quite severe, and he wasn't sure what was causing him so he came in for evaluation. Although he did not have abdominal pain, CT scan of the abdomen and pelvis was done and it showed active colitis in the colon. There did not seem to be ileum involvement. The patient was placed on antibiotics, IV fluids, today, has no complaints of any pain or discomfort, no chills, no fevers. He would like to go home. No complaints of chest pain or shortness breath. Overall, I think his presentation was consistent with a mild to moderate Crohn' s flare. So we will treat with one week of Levaquin and Flagyl, of which are seems to be some supportive data that this does help improve mild to moderate Crohn's disease exacerbations. I have asked him to stay on his budesonide. Assessment and Plan: 1. As per discharge assessments noted 2. Disposition: Patient is discharged home. 3. Condition on discharge, stable and improved. 4. Diet: regular diet 5. Activities: resume normal activities 6. Follow-Up: 1. Primary care provider, one week from discharge 2. Gastroenterology 7. Medications at the Time of Discharge: Home Medications Medication Instructions Recorded Confirmed Type Budesonide [Budesonide EC] 9 mg PO DAILY cap 09/16/16 11/04/16 History Levofloxacin [Levaquin] 500 mg PO DAILY #6 tablet 11/05/16 Rx metroNIDAZOLE Tab [Flagyl Tab] 500 mg PO Q8H #18 tab 11/05/16 Rx 8. Time, care, counseling and coordination of care for this discharge is less than 30 minutes. Exam - Vitals Vital Signs: Vital Signs Temperature 98.2 F Temperature Source Temporal Artery Scan Pulse Rate [Pulse Oximeter] 62 Pulse Rate 84 Respiratory Rate 18 Blood Pressure [Left Arm] 129/77 Blood Pressure 108/70 Pulse Ox 97 Oxygen Flow Rate 1 Oxygen Delivery Method Room Air Height 5 ft 11 in Weight 223 lb 9.6 oz - General General Appearance: POSITIVE: No Acute Distress, Cooperative - Head Head Exam: POSITIVE: Atraumatic - Eye Eye Exam: POSITIVE: No Scleral Icterus - Respiratory Respiratory Exam: POSITIVE: Clear to Auscultation - Bilaterally, Breathing Non Labored - Cardiovascular Cardiovascular Exam: POSITIVE: RRR, No Murmur, No Clicks, No Gallops, No Rubs, No JVD - GI/Abdominal GI/Abdominal Exam: POSITIVE: Normal Bowel Sounds, Non Tender, Non Distended, Soft - Extremities Extremities Exam: POSITIVE: No Clubbing Present, No Edema Present, No Cyanosis Present - Neurological Neurological Exam: POSITIVE: Alert, Oriented x 3, No Facial Droop, Speech Intact / Clear, Moves All Extremities Equally - Psychiatric Psychiatric Exam: POSITIVE: Normal Affect, Normal Mood Data Perinent Studies: Laboratory Results 11/04/16 11/04/16 11/04/16 Range/Units 04:45 09:38 12:19 WBC 8.07 (4.8-10.8) 10^3/uL RBC 4.52 L (4.70-6.10) 10^6/uL Hgb 12.3 L (14.0-18.0) g/dL Hct 38.1 L (42.0-52.0) % MCV 84.3 (80-90) FL MCH 27.2 (27-31) PG MCHC 32.3 L (33-37) g/dL RDW Std Deviation 45.5 (39-50) fL RDW Coeff of Fidel 15.0 H (11.5-14.5) % Plt Count 268 (140-350) 10*3/uL MPV 10.2 (7.4-12.2) FL Immature Gran % (Auto) 0.1 (0-5) % Neut % (Auto) 89.7 H (50-80) % Lymph % (Auto) 2.2 L (10-50) % [place] % (Auto) 7.7 (5-15) % Eos % (Auto) 0.1 (0-8) % Baso % (Auto) 0.2 (0-1) % Immature Gran # (Auto) 0.01 10*3/UL Neut # (Auto) 7.23 10*3/UL Lymph # (Auto) 0.18 10*3/uL [place] # (Auto) 0.62 (0.3-0.8) 10*3/UL Eos # (Auto) 0.01 10*3/UL Baso # (Auto) 0.02 10*3/UL WBC Morphology Comment Normal morphology (NORM) Plt Morphology Comment Normal morphology (NORM) RBC Morph Comment Normal morphology (NORM) ABG pH 7.43 (7.35-7.45) ABG pCO2 29 L (34-38) MMHG ABG pO2 52 L (65-75) MMHG ABG HCO3 19 L (22-26) ABG Total CO2 20 L (23-27) MMOL/L ABG O2 Saturation 88 L (90-100) % ABG Base Excess -5 L (-2-2) MMOL/L Quintin Test Y FiO2 Ra Sodium 141 (135-145) meq/L Potassium 2.8 L (3.8-5.2) meq/L Chloride 103 (98-112) meq/L Carbon Dioxide 22 L (23-33) meq/L Anion Gap 16 (5-20) BUN 7 (7-22) mg/dL Creatinine 0.9 (0.70-1.50) mg/dL Estimated GFR > 60 (>60 ml/min/1.73m(2)) BUN/Creatinine Ratio 7.77 (6-20) Glucose 142 H (78-110) mg/dL Calculated Osmolality 291.0 (267-292) mOsm/kg Lactic Acid 3.4 H (0.70-2.10) MMOL/L Calcium 8.6 L (8.7-10.7) mg/dL Magnesium 1.4 L (1.6-2.4) mg/dL Total Bilirubin 1.0 (0.3-1.2) mg/dL AST 18 L (21-57) IU/L ALT 22 (21-72) IU/L Alkaline Phosphatase 77 (38-126) IU/L Total Creatine Kinase 46 L (55-170) IU/L C-Reactive Protein 4.1 H (0.0-0.9) mg/dL Total Protein 6.9 (6.1-8.0) g/dL Albumin 4.0 (3.5-4.8) g/dL Globulin 2.9 (2.50-4.10) g/dL Albumin/Globulin Ratio 1.30 (1.3-2.0) mg/g Amylase (30-110) U/L Lipase (23-300) IU/L Ur Collection Type Clean catch urine Urine Color Yellow Urine Clarity Clear (CLEAR) Urine pH 6.5 (5.0-8.5) Ur Specific [place] 1.010 (1.005-1.030) Urine Protein Negative (NEG) mg/dl Urine Glucose (UA) Negative (NEG) mg/dL Urine Ketones Negative (NEG) Urine Occult Blood Negative (NEG) Urine Nitrate Negative (NEG) Urine Bilirubin Negative (NEG) Urine Urobilinogen 0.2 (0.2) EU/dL Ur Leukocyte Esterase Negative (NEG) Ur Culture Indicated? Culture not set 11/05/16 Range/Units 04:44 WBC 5.85 (4.8-10.8) 10^3/uL RBC 4.43 L (4.70-6.10) 10^6/uL Hgb 11.8 L (14.0-18.0) g/dL Hct 37.9 L (42.0-52.0) % MCV 85.6 (80-90) FL MCH 26.6 L (27-31) PG MCHC 31.1 L (33-37) g/dL RDW Std Deviation 46.5 (39-50) fL RDW Coeff of Fidel 15.0 H (11.5-14.5) % Plt Count 249 (140-350) 10*3/uL MPV 11.0 (7.4-12.2) FL Immature Gran % (Auto) 0.2 (0-5) % Neut % (Auto) 93.3 H (50-80) % Lymph % (Auto) 5.5 L (10-50) % [place] % (Auto) 1.0 L (5-15) % Eos % (Auto) 0 (0-8) % Baso % (Auto) 0 (0-1) % Immature Gran # (Auto) 0.01 10*3/UL Neut # (Auto) 5.46 10*3/UL Lymph # (Auto) 0.32 10*3/uL [place] # (Auto) 0.06 L (0.3-0.8) 10*3/UL Eos # (Auto) 0 10*3/UL Baso # (Auto) 0 10*3/UL WBC Morphology Comment Normal morphology (NORM) Plt Morphology Comment Normal morphology (NORM) RBC Morph Comment Normal morphology (NORM) ABG pH (7.35-7.45) ABG pCO2 (34-38) MMHG ABG pO2 (65-75) MMHG ABG HCO3 (22-26) ABG Total CO2 (23-27) MMOL/L ABG O2 Saturation (90-100) % ABG Base Excess (-2-2) MMOL/L Quintin Test FiO2 Sodium 141 (135-145) meq/L Potassium 4.0 D (3.8-5.2) meq/L Chloride 108 (98-112) meq/L Carbon Dioxide 24 (23-33) meq/L Anion Gap 9 (5-20) BUN 6 L (7-22) mg/dL Creatinine 0.7 (0.70-1.50) mg/dL Estimated GFR > 60 (>60 ml/min/1.73m(2)) BUN/Creatinine Ratio 8.57 (6-20) Glucose 174 H (78-110) mg/dL Calculated Osmolality 293.0 H (267-292) mOsm/kg Lactic Acid 1.1 (0.70-2.10) MMOL/L Calcium 8.7 (8.7-10.7) mg/dL Magnesium (1.6-2.4) mg/dL Total Bilirubin 0.6 (0.3-1.2) mg/dL AST 17 L (21-57) IU/L ALT 28 (21-72) IU/L Alkaline Phosphatase 73 (38-126) IU/L Total Creatine Kinase (55-170) IU/L C-Reactive Protein (0.0-0.9) mg/dL Total Protein 6.8 (6.1-8.0) g/dL Albumin 3.5 (3.5-4.8) g/dL Globulin 3.3 (2.50-4.10) g/dL Albumin/Globulin Ratio 1.00 L (1.3-2.0) mg/g Amylase 34 (30-110) U/L Lipase 22 L (23-300) IU/L Ur Collection Type Urine Color Urine Clarity (CLEAR) Urine pH (5.0-8.5) Ur Specific [place] (1.005-1.030) Urine Protein (NEG) mg/dl Urine Glucose (UA) (NEG) mg/dL Urine Ketones (NEG) Urine Occult Blood (NEG) Urine Nitrate (NEG) Urine Bilirubin (NEG) Urine Urobilinogen (0.2) EU/dL Ur Leukocyte Esterase (NEG) Ur Culture Indicated? CT scan, positive for flared bowel for Crohn's colitis. Patient Problems - Patient Problem List (1) Exacerbation of Crohn's disease Current Visit: Yes Status: Acute Qualifiers: Digestive disease complication type: without complication Qualified Description: Exacerbation of Crohn's disease, without complications Qualifier Code(s): (K50.90) Crohn's disease, unspecified, without complications (2) Chills (without fever) Current Visit: Yes Status: Acute
== END 2016-11-05 14:17 | disposition home or self-care (01) | DRG 387 ==
LOC: ER 04:21 → MED/SURG 06:24
PROVIDERS: ADMIT Internal Medicine; ATTEND Internal Medicine
DX: K50.919 Crohn's disease, unspecified, with unspecified complications (principal); R50.9 Fever, unspecified; E87.6 Hypokalemia; E83.42 Hypomagnesemia; A04.7 Enterocolitis due to Clostridium difficile
CPT/HCPCS: 36415; 71020; 80053; 82550; 83605; 83735; 85025; 86140; 87040; 96361; 96374; 96375; 99284 ×2; J1885; 36600; 74177; 81003; 82150; 82803; 83690; 87046; 87077; 87186; 87328; 87329; 87493; 94761; J0692; J1170; J1650; J2270; J2405; J3370; J3475; J3490; J7030; J7040; J7050

== ENCOUNTER → 2016-11-12 | Outpatient (CLI) | payer OTHER | LOC: MMPC 09:00 | PROVIDERS: ATTEND Family Medicine | DX: A02.9 Salmonella infection, unspecified (principal); A04.7 Enterocolitis due to Clostridium difficile; K50.90 Crohn's disease, unspecified, without complications | CPT/HCPCS: 99213; G0463 ==

== ENCOUNTER → 2016-11-27 | Outpatient (CLI) | payer OTHER ==
[2016-11-27 07:21] LABS: BASOPHILS # (AUTO) 0.05 10*3/UL; BASOPHILS % (AUTO) 1.1 % (0-1); EOSINOPHILS # (AUTO) 0.17 10*3/UL; EOSINOPHILS % (AUTO) 3.6 % (0-8); HEMOGLOBIN 11.9 g/dL (14.0-18.0); LYMPHOCYTES # (AUTO) 1.25 10*3/uL; MEAN CORPUSCULAR HEMOGLOBIN 27.7 PG (27-31); MEAN CORPUSCULAR HGB CONC 32.2 g/dL (33-37); MEAN PLATELET VOLUME 9.4 FL (7.4-12.2); MONOCYTES # (AUTO) 0.65 10*3/UL (0.3-0.8); MONOCYTES % (AUTO) 13.9 % (5-15); NEUTROPHILS # (AUTO) 2.56 10*3/UL; NEUTROPHILS % (AUTO) 54.5 % (50-80)
[2016-11-27 07:22] LABS: PLATELET MORPHOLOGY COMMENT NORMAL MORPHOLOGY (NORM); RBC MORPHOLOGY COMMENT NORMAL MORPHOLOGY (NORM); WBC MORPHOLOGY COMMENT NORMAL MORPHOLOGY (NORM)
[2016-11-27 08:00] LABS: BLOOD UREA NITROGEN 6 mg/dL (7-22); CALCIUM 8.9 mg/dL (8.7-10.7); EST GLOMERULAR FILTRATION > 60 (>60 ml/min/1.73m(2)); SERUM ALBUMIN 3.9 g/dL (3.5-4.8)
== END ==
LOC: LAB 07:10
PROVIDERS: ATTEND Physician Assistant Medical
DX: K50.90 Crohn's disease, unspecified, without complications (principal); A04.7 Enterocolitis due to Clostridium difficile
CPT/HCPCS: 36415; 80053; 85025

== ENCOUNTER 2017-02-12 21:10 | Inpatient (IN) ==
[2017-02-12] MEDS ORDERED: HYDROmorphone 2 MG/1 ML IVP ONE ×2 (21:34→23:12)
[2017-02-12] MEDS ORDERED: NORMAL SALINE 10 ML SYRINGE FLUSH IVP PRN (21:34)
[2017-02-12] MEDS ORDERED: Sodium Chloride 0.9% 1,000 ML PRIMARY IV ONE (21:34)
[2017-02-12] MEDS ORDERED: ONDANSETRON 4 MG/2 ML VIAL IVP ONE (21:34)
[2017-02-12 21:52] LABS: BASOPHILS # (AUTO) 0.05 10*3/UL; BASOPHILS % (AUTO) 0.9 % (0-1); EOSINOPHILS # (AUTO) 0.01 10*3/UL; EOSINOPHILS % (AUTO) 0.2 % (0-8); Hematocrit [HCT] 37.3 % (42.0-52.0); Hemoglobin [HGB] 12.1 g/dL (14.0-18.0); LYMPHOCYTES # (AUTO) 0.44 10*3/uL; MEAN CORPUSCULAR HEMOGLOBIN 27.4 PG (27-31); MEAN CORPUSCULAR HGB CONC 32.4 g/dL (33-37); MEAN CORPUSCULAR VOLUME 84.6 FL (80-90); MEAN PLATELET VOLUME 9.4 FL (7.4-12.2); MONOCYTES # (AUTO) 0.75 10*3/UL (0.3-0.8); MONOCYTES % (AUTO) 14.2 % (5-15); NEUTROPHILS # (AUTO) 4.02 10*3/UL; NEUTROPHILS % (AUTO) 76.2 % (50-80); RED BLOOD COUNT 4.41 10^6/uL (4.70-6.10)
[2017-02-12 21:53] LABS: PLATELET MORPHOLOGY COMMENT NORMAL MORPHOLOGY (NORM); RBC MORPHOLOGY COMMENT NORMAL MORPHOLOGY (NORM); WBC MORPHOLOGY COMMENT NORMAL MORPHOLOGY (NORM)
[2017-02-12 22:04] LABS: BLOOD UREA NITROGEN 8 mg/dL (7-22); LIPASE 31 IU/L (23-300); SERUM ALBUMIN 3.9 g/dL (3.5-4.8)
[2017-02-12 22:06] LABS: CLARITY,URINE CLEAR (CLEAR); COLOR,URINE AMBER; GLUCOSE, URINE (UA) NEGATIVE (NEG); NITRATE,URINE NEGATIVE (NEG); OCCULT BLOOD,URINE NEGATIVE (NEG); PROTEIN,URINE NEGATIVE (NEG); URINE SAMPLE TYPE VOIDED SPECIMEN
[2017-02-12 22:07] LABS: BILIRUBIN,URINE NEGATIVE (NEG)
[2017-02-12 22:29] LABS: VENOUS PH 7.57 (7.32-7.42)
--- NOTE | 2017-02-12 23:36 | DI ---
HISTORY: Abdominal pain. Crohn's disease. COMPARISON: Report only from CT of the abdomen and pelvis dated 06/27/2016. TECHNIQUE: CT of the abdomen and pelvis was performed and submitted for interpretation. FINDINGS: The heart is within normal limits. No acute pathology is seen at the lung bases. The liver is grossly unremarkable. The spleen is within normal limits. The gallbladder is grossly u nremarkable. There is no biliary ductal dilatation. The pancreas and adrenal glands are unremarkabl e. The kidneys are within normal limits. There is mucosal thickening and pericolonic fat stranding of the descending colon, consistent with co litis. Similar findings are seen about the cecum and terminal ileum. This constellation of findings in addition to scattered bowel related surgical changes are consistent with history of Crohn's disea se and acute flare. Proximal loops of small bowel measure up to 3.2 cm in caliber with collapsed smal l bowel distally. There is a right lateral ventral abdominal umbilical hernia containing small bowel, both of which could serve as transition points for the small bowel obstruction. There is no lympha denopathy by size criteria. There is no ascites. Bilateral pars defects are noted without spondyloli sthesis. No acute skeletal pathology is seen. IMPRESSION: 1. Acute on chronic Crohn's disease with uncomplicated descending colitis, cecitis, and terminal ilei tis. No evidence of abscess or bowel perforation. 2. Small bowel obstruction with probable transition points at the umbilical and right ventral abdomin al hernia sites. No secondary signs of bowel ischemia. NOTIFICATION: The above findings were phoned to Julianna Stubbs in the ER Department on 02/13/2017 at 1:39 am EST.
[2017-02-13] MEDS ORDERED: ACETAMINOPHEN 500 MG TABLET PO ONE (02:16)
[2017-02-13] MEDS ORDERED: metroNIDAZOLE 500mg (Premix) 500 MG/100 ML BAG IV ONE ×2 (02:31→10:38)
[2017-02-13] MEDS ORDERED: methylPREDNISolone 125 MG/2 ML VIAL ONE ×3 (02:39→14:32)
[2017-02-13] MEDS ORDERED: CEFTRIAXONE SODIUM 2 GM VIAL IV ONE (04:04)
[2017-02-13] MEDS ORDERED: Sodium Chloride 0.9% 100 ML IV ONE (04:05)
[2017-02-13] MEDS ORDERED: HYDROmorphone 2 MG/1 ML ONE ×2 (10:40→12:55)
[2017-02-13] MEDS ORDERED: ONDANSETRON 4 MG/2 ML VIAL ONE (11:59)
[2017-02-13] MEDS ORDERED: CALCIUM CARBONATE 500 MG (TUMS) CHEWABLE TABLET PO ONE (14:13)
[2017-02-13] MEDS ORDERED: Pantoprazole Inj 40 MG in Normal Saline Flush 10 ML IVP PRN (15:40)
[2017-02-13] MEDS ORDERED: CALCIUM CARBONATE 500 MG (TUMS) CHEWABLE TABLET PO PRN (15:40)
[2017-02-13] MEDS ORDERED: ONDANSETRON 4 MG/2 ML VIAL IVP PRN (15:40)
[2017-02-13] MEDS ORDERED: PANTOPRAZOLE IV 40 MG VIAL ONE (15:44)
[2017-02-13] MEDS ORDERED: ACETAMINOPHEN 500 MG TABLET PO PRN (15:45)
--- NOTE | 2017-02-13 16:52 | PDOC(PROG) ---
General Note Progress Note: Please see my paper chart note as the system was down, I did speak with GI and also the surgeon. Dr. Jimenez reviewed the CT with the radiologist they think it's all exacerbation of Crohn's no evidence of small bowel obstruction. I did speak with the Dr. Shipman the divinity teacher who suggested to try to cut back on the dosage of the methylprednisolone and once he is ready for discharge to discharge him on 40 mg a day.
[2017-02-13 18:33] LABS: BLOOD UREA NITROGEN 7 mg/dL (7-22); SERUM ALBUMIN 3.2 g/dL (3.5-4.8)
[2017-02-13 18:34] LABS: Erythrocyte Sediment Rate 41 MM/HR (0-15); Hemoglobin [HGB] 10.4 g/dL (14.0-18.0); RED BLOOD COUNT 3.76 10^6/uL (4.70-6.10)
[2017-02-13 18:35] LABS: BASOPHILS # (AUTO) 0.01 10*3/UL; BASOPHILS % (AUTO) 0.2 % (0-1); EOSINOPHILS # (AUTO) 0.01 10*3/UL; EOSINOPHILS % (AUTO) 0.2 % (0-8); Hematocrit [HCT] 32.2 % (42.0-52.0); LYMPHOCYTES # (AUTO) 0.28 10*3/uL; MEAN CORPUSCULAR HEMOGLOBIN 27.7 PG (27-31); MEAN CORPUSCULAR HGB CONC 32.3 g/dL (33-37); MEAN CORPUSCULAR VOLUME 85.6 FL (80-90); MEAN PLATELET VOLUME 9.7 FL (7.4-12.2); MONOCYTES # (AUTO) 0.37 10*3/UL (0.3-0.8); MONOCYTES % (AUTO) 7.5 % (5-15); NEUTROPHILS # (AUTO) 4.24 10*3/UL; NEUTROPHILS % (AUTO) 86.4 % (50-80); PLATELET MORPHOLOGY COMMENT NORMAL MORPHOLOGY (NORM); RBC MORPHOLOGY COMMENT NORMAL MORPHOLOGY (NORM); WBC MORPHOLOGY COMMENT NORMAL MORPHOLOGY (NORM)
[2017-02-13] MEDS: metroNIDAZOLE 500mg (Premix) 500 MG/100 ML BAG IV SCH (18:50)
[2017-02-13] MEDS ORDERED: methylPREDNISolone Succ Inj 125 MG in Sodium Chloride 0.9% 100 ML IV SCH ×2 (20:30→22:30)
[2017-02-13] MEDS ORDERED: POTASSIUM CHLORIDE 20 MEQ TAB PO SCH (21:00)
[2017-02-13] MEDS ORDERED: diphenhydrAMINE 50 MG/1 ML VIAL IVP PRN (21:18)
[2017-02-13] MEDS ORDERED: diphenhydrAMINE 50 MG/1 ML VIAL ONE (21:24)
[2017-02-13] MEDS: methylPREDNISolone 125 MG/2 ML VIAL IV SCH (22:38)
[2017-02-14] MEDS: metroNIDAZOLE 500mg (Premix) 500 MG/100 ML BAG IV SCH ×3 (02:52→19:24)
[2017-02-14] MEDS: cefTRIAXone Inj 2 GM in Sodium Chloride 0.9% 100 ML IV SCH (03:48)
[2017-02-14] MEDS: HYDROmorphone 2 MG/1 ML IVP PRN ×6 (04:25→23:24)
[2017-02-14 05:52] LABS: Hematocrit [HCT] 33.4 % (42.0-52.0); Hemoglobin [HGB] 10.8 g/dL (14.0-18.0); MEAN CORPUSCULAR HEMOGLOBIN 28.1 PG (27-31); MEAN CORPUSCULAR HGB CONC 32.3 g/dL (33-37); MEAN PLATELET VOLUME 9.7 FL (7.4-12.2); RED BLOOD COUNT 3.84 10^6/uL (4.70-6.10)
[2017-02-14 06:04] LABS: BLOOD UREA NITROGEN 7 mg/dL (7-22)
[2017-02-14] MEDS: BUDESONIDE PO SCH (06:53)
[2017-02-14] MEDS: methylPREDNISolone 125 MG/2 ML VIAL IV SCH ×2 (06:56→19:24)
[2017-02-14] MEDS ORDERED: diphenhydrAMINE 25 MG CAPSULE PO PRN (07:32)
[2017-02-14 07:35] VITALS: RESP 18
--- NOTE | 2017-02-14 07:40 | PDOC(PROG) ---
Date and Time of Service: 02/14/2017 7:42 AM Interval History: Subjective Patient feels better, no more vomiting. He is having heartburn though. He had some abdominal pain earlier and had a bowel movement and that's resolved. He feels better overall. No body aches. No fever. Objective : Data - Labs CBC and BMP: 02/14/17 04:20 02/14/17 04:20 Objective : Exam - General General Appearance: No Acute Distress, Cooperative - Head Head Exam: Normal Inspection, Atraumatic - Eye Eye Exam: Normal Appearance - ENT ENT Exam: Normal Exam - Neck Neck Exam: Normal Inspection - Respiratory Respiratory Exam: Clear to Auscultation - Bilaterally - Cardiovascular Cardiovascular Exam: RRR - GI/Abdominal GI/Abdominal Exam: Normal Bowel Sounds, Non Tender, Non Distended, Soft, No Organomegaly Additional GI/Abdominal Exam Details: Umbilical hernia noted and its reducible. No tenderness - Rectal Rectal Exam: Deferred - External Exam: Deferred - Extremities Extremities Exam: Normal Inspection - Back Back Exam: Normal Inspection - Neurological Neurological Exam: Alert, Oriented x 3, CN II-XII Intact, Moves All Extremities Equally - Psychiatric Psychiatric Exam: Normal Affect - Integumentary Integumentary Exam: Normal Color Assessment and Plan - Patient Problems (1) Exacerbation of Crohn's disease Current Visit: No Status: Acute Comment: He is improving, I did speak with the training manager yesterday and with the surgeon as I said in my note. This looks exacerbation of Crohn's disease. Does not look like of intestinal obstruction. I think will advance his diet. We'll start cutting back on the steroid. We will DC his fluid. Continue antibiotics. For heartburn he is on Protonix. Waiting for blood cultures. Probably home tomorrow. He has appointment with the training manager on Thursday Code(s): K50.90 - Crohn's disease, unspecified, without complications Qualifiers: Digestive disease complication type: without complication Qualified Code(s) : K50.90 - Crohn's disease, unspecified, without complications (2) Hypokalemia Current Visit: No Status: Acute Comment: This is improved, will cut back on the replacement dose. Code(s): E87.6 - Hypokalemia
[2017-02-14] MEDS: PANTOPRAZOLE 40 MG TABLET PO SCH (08:15)
[2017-02-14] MEDS: Potassium Chloride Tab 10 MEQ TAB PO SCH ×2 (08:57→20:28)
[2017-02-14] MEDS: NORMAL SALINE 10 ML SYRINGE FLUSH IVP PRN ×2 (12:49→16:00)
[2017-02-15] MEDS: HYDROmorphone 2 MG/1 ML IVP PRN (03:01)
[2017-02-15] MEDS: metroNIDAZOLE 500mg (Premix) 500 MG/100 ML BAG IV SCH (03:01)
[2017-02-15] MEDS: cefTRIAXone Inj 2 GM in Sodium Chloride 0.9% 100 ML IV SCH (04:03)
[2017-02-15 04:24] VITALS: BP 137/84; TEMP 97.8
[2017-02-15] MEDS: PANTOPRAZOLE 40 MG TABLET PO SCH (07:31)
[2017-02-15] MEDS: methylPREDNISolone 125 MG/2 ML VIAL IV SCH (07:31)
[2017-02-15] MEDS: BUDESONIDE PO SCH (07:31)
--- NOTE | 2017-02-15 07:47 | DCSUMMARY ---
Hospitalization Summary Admit Date: 02/13/17 Discharge Date: 02/15/17 Hospital Course: Discharge diagnosis 1. Exacerbation of Crohn's disease 2. History of drug-induced lupus 3. History of C. difficile infection before 4. 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 difficile infection and salmonella infection who presented to the hospital with history of abdominal pain for a week also with body aches and had fever on the day of admission and because of that he presented to the hospital there was no worsening of his diarrhea, diarrhea is usual and there was no bleeding. He had a CT of the abdomen which showed acute on chronic Crohn's disease with uncomplicated descending colitis, cystitis and terminal ileitis. No evidence of abscess or bowel perforation. There was a question of small bowel obstruction on the initial read of the CT however review of the CT with radiologist he does not believe there is evidence of obstruction and clinically it did not look like an obstruction. I saw the patient the next morning he was already started on antibiotics and steroid he was feeling improvement. Blood culture remain negative culture of stool remain negative I did speak with the Dr. Shipman who suggested to cut back gradually on the steroid and discharge him on oral steroid and he'll follow-up with him as an outpatient. On the day of discharge she was doing better there was no abdominal pain and the he felt better exam was unremarkable there is no tenderness he has a small umbilical hernia which is reducible. He need follow-up with his primary. He did have low potassium initially and we replaced that. In addition to the prednisone we discharge him on Flagyl. I gave him only 2 days of 40 mg of prednisone until he see Dr. Shipman and then we can determine how long and what dosage he needs to be on. Laboratory Results 02/12/17 02/12/17 02/12/17 Range/Units 21:40 21:40 21:40 WBC 5.28 (4.8-10.8) 10^3/uL RBC 4.41 L (4.70-6.10) 10^6/uL Hgb 12.1 L (14.0-18.0) g/dL Hct 37.3 L (42.0-52.0) % MCV 84.6 (80-90) FL MCH 27.4 (27-31) PG MCHC 32.4 L (33-37) g/dL RDW Std Deviation 40.1 (39-50) fL RDW Coeff of Fidel 13.2 (11.5-14.5) % Plt Count 416 H (140-350) 10*3/uL MPV 9.4 (7.4-12.2) FL Immature Gran % (Auto) 0.2 (0-5) % Neut % (Auto) 76.2 (50-80) % Lymph % (Auto) 8.3 L (10-50) % Daggett % (Auto) 14.2 (5-15) % Eos % (Auto) 0.2 (0-8) % Baso % (Auto) 0.9 (0-1) % Immature Gran # (Auto) 0.01 10*3/UL Neut # (Auto) 4.02 10*3/UL Lymph # (Auto) 0.44 10*3/uL Daggett # (Auto) 0.75 (0.3-0.8) 10*3/UL Eos # (Auto) 0.01 10*3/UL Baso # (Auto) 0.05 10*3/UL WBC Morphology Comment Normal morphology (NORM) Plt Morphology Comment Normal morphology (NORM) RBC Morph Comment Normal morphology (NORM) ESR (0-15) MM/HR VBG pH (7.32-7.42) VBG pCO2 (45-55) mmHg VBG HCO3 (22-26) mmol/L VBG Base Excess (-2-2) MMOL/L Sodium 138 (135-145) meq/L Potassium 3.7 L (3.8-5.2) meq/L Chloride 104 (98-112) meq/L Carbon Dioxide 22 L (23-33) meq/L Anion Gap 12 (5-20) BUN 8 (7-22) mg/dL Creatinine 1.0 (0.70-1.50) mg/dL Estimated GFR > 60 (>60 ml/min/1.73m(2)) BUN/Creatinine Ratio 8.00 (6-20) Glucose 95 (78-110) mg/dL Calculated Osmolality 283.0 (267-292) mOsm/kg Lactic Acid 1.4 (0.70-2.10) MMOL/L Calcium 9.2 (8.7-10.7) mg/dL Total Bilirubin 1.0 (0.3-1.2) mg/dL AST 23 (21-57) IU/L ALT 28 (21-72) IU/L Alkaline Phosphatase 107 (38-126) IU/L C-Reactive Protein 8.2 H (0.0-0.9) mg/dL Total Protein 7.2 (6.1-8.0) g/dL Albumin 3.9 (3.5-4.8) g/dL Globulin 3.2 (2.50-4.10) g/dL Albumin/Globulin Ratio 1.20 L (1.3-2.0) mg/g Amylase 43 (30-110) U/L Lipase 31 (23-300) IU/L Ur Collection Type Urine Color Urine Clarity (CLEAR) Urine pH (5.0-8.5) Ur Specific Camargo (1.005-1.030) Urine Protein (NEG) mg/dl Urine Glucose (UA) (NEG) mg/dL Urine Ketones (NEG) Urine Occult Blood (NEG) Urine Nitrate (NEG) Urine Bilirubin (NEG) Urine Urobilinogen (0.2) EU/dL Ur Leukocyte Esterase (NEG) Ur Culture Indicated? 02/12/17 02/12/17 02/13/17 Range/Units 21:51 22:00 05:00 WBC (4.8-10.8) 10^3/uL RBC (4.70-6.10) 10^6/uL Hgb (14.0-18.0) g/dL Hct (42.0-52.0) % MCV (80-90) FL MCH (27-31) PG MCHC (33-37) g/dL RDW Std Deviation (39-50) fL RDW Coeff of Fidel (11.5-14.5) % Plt Count (140-350) 10*3/uL MPV (7.4-12.2) FL Immature Gran % (Auto) (0-5) % Neut % (Auto) (50-80) % Lymph % (Auto) (10-50) % Daggett % (Auto) (5-15) % Eos % (Auto) (0-8) % Baso % (Auto) (0-1) % Immature Gran # (Auto) 10*3/UL Neut # (Auto) 10*3/UL Lymph # (Auto) 10*3/uL Daggett # (Auto) (0.3-0.8) 10*3/UL Eos # (Auto) 10*3/UL Baso # (Auto) 10*3/UL WBC Morphology Comment (NORM) Plt Morphology Comment (NORM) RBC Morph Comment (NORM) ESR (0-15) MM/HR VBG pH 7.57 H (7.32-7.42) VBG pCO2 27 L (45-55) mmHg VBG HCO3 25 (22-26) mmol/L VBG Base Excess 3 H (-2-2) MMOL/L Sodium 138 (135-145) meq/L Potassium 2.7 L (3.8-5.2) meq/L Chloride 105 (98-112) meq/L Carbon Dioxide 23 (23-33) meq/L Anion Gap 10 (5-20) BUN 7 (7-22) mg/dL Creatinine 1.0 (0.70-1.50) mg/dL Estimated GFR > 60 (>60 ml/min/1.73m(2)) BUN/Creatinine Ratio 7.00 (6-20) Glucose 115 H (78-110) mg/dL Calculated Osmolality 284.0 (267-292) mOsm/kg Lactic Acid (0.70-2.10) MMOL/L Calcium 8.0 L (8.7-10.7) mg/dL Total Bilirubin 0.5 (0.3-1.2) mg/dL AST 12 L (21-57) IU/L ALT 28 (21-72) IU/L Alkaline Phosphatase 87 (38-126) IU/L C-Reactive Protein (0.0-0.9) mg/dL Total Protein 6.2 (6.1-8.0) g/dL Albumin 3.2 L (3.5-4.8) g/dL Globulin 3.0 (2.50-4.10) g/dL Albumin/Globulin Ratio 1.00 L (1.3-2.0) mg/g Amylase (30-110) U/L Lipase (23-300) IU/L Ur Collection Type Voided specimen Urine Color Mony Urine Clarity Clear (CLEAR) Urine pH 6.0 (5.0-8.5) Ur Specific [place] 1.010 (1.005-1.030) Urine Protein Negative (NEG) mg/dl Urine Glucose (UA) Negative (NEG) mg/dL Urine Ketones Trace (NEG) Urine Occult Blood Negative (NEG) Urine Nitrate Negative (NEG) Urine Bilirubin Negative (NEG) Urine Urobilinogen 1.0 (0.2) EU/dL Ur Leukocyte Esterase Negative (NEG) Ur Culture Indicated? Culture not set 02/13/17 02/14/17 02/14/17 Range/Units 05:00 04:20 04:20 WBC 4.91 6.73 (4.8-10.8) 10^3/uL RBC 3.76 L 3.84 L (4.70-6.10) 10^6/uL Hgb 10.4 L 10.8 L (14.0-18.0) g/dL Hct 32.2 L 33.4 L (42.0-52.0) % MCV 85.6 87.0 (80-90) FL MCH 27.7 28.1 (27-31) PG MCHC 32.3 L 32.3 L (33-37) g/dL RDW Std Deviation 40.5 41.5 (39-50) fL RDW Coeff of Fidel 13.3 13.3 (11.5-14.5) % Plt Count 387 H 385 H (140-350) 10*3/uL MPV 9.7 9.7 (7.4-12.2) FL Immature Gran % (Auto) 0 (0-5) % Neut % (Auto) 86.4 H (50-80) % Lymph % (Auto) 5.7 L (10-50) % Daggett % (Auto) 7.5 (5-15) % Eos % (Auto) 0.2 (0-8) % Baso % (Auto) 0.2 (0-1) % Immature Gran # (Auto) 0 10*3/UL Neut # (Auto) 4.24 10*3/UL Lymph # (Auto) 0.28 10*3/uL Daggett # (Auto) 0.37 (0.3-0.8) 10*3/UL Eos # (Auto) 0.01 10*3/UL Baso # (Auto) 0.01 10*3/UL WBC Morphology Comment Normal morphology (NORM) Plt Morphology Comment Normal morphology (NORM) RBC Morph Comment Normal morphology (NORM) ESR 41 H (0-15) MM/HR VBG pH (7.32-7.42) VBG pCO2 (45-55) mmHg VBG HCO3 (22-26) mmol/L VBG Base Excess (-2-2) MMOL/L Sodium 141 (135-145) meq/L Potassium 3.9 D (3.8-5.2) meq/L Chloride 107 (98-112) meq/L Carbon Dioxide 23 (23-33) meq/L Anion Gap 11 (5-20) BUN 7 (7-22) mg/dL Creatinine 0.7 (0.70-1.50) mg/dL Estimated GFR > 60 (>60 ml/min/1.73m(2)) BUN/Creatinine Ratio 10.00 (6-20) Glucose 143 H (78-110) mg/dL Calculated Osmolality 291.0 (267-292) mOsm/kg Lactic Acid (0.70-2.10) MMOL/L Calcium 9.1 (8.7-10.7) mg/dL Total Bilirubin (0.3-1.2) mg/dL AST (21-57) IU/L ALT (21-72) IU/L Alkaline Phosphatase (38-126) IU/L C-Reactive Protein (0.0-0.9) mg/dL Total Protein (6.1-8.0) g/dL Albumin (3.5-4.8) g/dL Globulin (2.50-4.10) g/dL Albumin/Globulin Ratio (1.3-2.0) mg/g Amylase (30-110) U/L Lipase (23-300) IU/L Ur Collection Type Urine Color Urine Clarity (CLEAR) Urine pH (5.0-8.5) Ur Specific [place] (1.005-1.030) Urine Protein (NEG) mg/dl Urine Glucose (UA) (NEG) mg/dL Urine Ketones (NEG) Urine Occult Blood (NEG) Urine Nitrate (NEG) Urine Bilirubin (NEG) Urine Urobilinogen (0.2) EU/dL Ur Leukocyte Esterase (NEG) Ur Culture Indicated? Discharge instruction Diet regular Activity as started Medications Current Medication(s) 3 Medication Instructions Recorded Confirmed Type Budesonide [Budesonide EC] 9 mg PO DAILY cap 09/16/16 11/04/16 History Acetaminophen [Tylenol] 1,000 mg PO Q6H PRN tab 02/15/17 Rx Potassium Chloride [Klor-Con] 10 meq PO DAILY #3 tab 02/15/17 Rx Prednisone 10 mg PO DAILY #8 tab 02/15/17 Rx metroNIDAZOLE Tab [Flagyl Tab] 500 mg PO Q8H #9 tab 02/15/17 Rx Follow-up with PCP in 1-2 weeks, with Dr. Shipman as scheduled on February 17 Condition at discharge was stable for discharge Exam - Vitals Vital Signs: Vital Signs Temperature 97.8 F Temperature Source Temporal Artery Scan Pulse Rate [Pulse Oximeter] 62 Respiratory Rate 18 Blood Pressure [Left Arm] 137/84 Pulse Ox 95 Oxygen Delivery Method Room Air Height 5 ft 11 in Weight 214 lb 4 oz - General General Appearance: No Acute Distress, Cooperative - Head Head Exam: Normal Inspection, Atraumatic - Eye Eye Exam: POSITIVE: Normal Appearance - ENT ENT Exam: POSITIVE: Normal Exam - Neck Neck Exam: Normal Inspection - Respiratory Respiratory Exam: POSITIVE: Clear to Auscultation - Bilaterally - Cardiovascular Cardiovascular Exam: POSITIVE: RRR - GI/Abdominal GI/Abdominal Exam: POSITIVE: Normal Bowel Sounds, Non Tender, Non Distended, Soft, No Organomegaly Additional GI/Abdominal Exam Details: Small umbilical hernia which is reducible and nontender. - Rectal Rectal Exam: POSITIVE: Deferred - External Exam: POSITIVE: Deferred - Extremities Extremities Exam: POSITIVE: Normal Inspection - Back Back Exam: POSITIVE: Normal Inspection - Neurological Neurological Exam: POSITIVE: Alert, Oriented x 3, CN II-XII Intact, Speech Intact / Clear, Moves All Extremities Equally - Psychiatric Psychiatric Exam: POSITIVE: Normal Affect - Integumentary Integumentary Exam: POSITIVE: Normal Color Patient Problems - Patient Problem List (1) Exacerbation of Crohn's disease Status: Acute Comment: He is improving, I did speak with the compensation intern yesterday and with the surgeon as I said in my note. This looks exacerbation of Crohn's disease. Does not look like of intestinal obstruction. I think will advance his diet. We'll start cutting back on the steroid. We will DC his fluid. Continue antibiotics. For heartburn he is on Protonix. Waiting for blood cultures. Probably home tomorrow. He has appointment with the compensation intern on Thursday Code(s): K50.90 - Crohn's disease, unspecified, without complications Qualifiers: Digestive disease complication type: without complication Qualified Code(s) : K50.90 - Crohn's disease, unspecified, without complications Category: Medical (2) Hypokalemia Status: Acute Comment: This is improved, will cut back on the replacement dose. Code(s): E87.6 - Hypokalemia Category: Medical
== END 2017-02-15 08:57 | disposition home or self-care (01) | DRG 387 ==
LOC: ER 21:10 → MED/SURG 02-13 00:15
PROVIDERS: ADMIT Family Medicine; ATTEND Family Medicine

== ENCOUNTER 2017-02-15 20:25 | Inpatient (IN) ==
[2017-02-15] MEDS ORDERED: ONDANSETRON 4 MG/2 ML VIAL IVP ONE (20:41)
[2017-02-15] MEDS ORDERED: KETOROLAC 15 MG/1 ML VIAL IVP ONE (20:41)
[2017-02-15] MEDS ORDERED: HYDROmorphone 2 MG/1 ML IVP ONE (20:41)
[2017-02-15] MEDS ORDERED: NORMAL SALINE 10 ML SYRINGE FLUSH IVP PRN ×2 (20:41→22:26)
[2017-02-15] MEDS ORDERED: Sodium Chloride 0.9% 1,000 ML PRIMARY IV ONE (20:41)
[2017-02-15 21:13] LABS: BASOPHILS # (AUTO) 0.03 10*3/UL; BASOPHILS % (AUTO) 0.4 % (0-1); EOSINOPHILS # (AUTO) 0 10*3/UL; EOSINOPHILS % (AUTO) 0 % (0-8); Hematocrit [HCT] 34.8 % (42.0-52.0); LYMPHOCYTES # (AUTO) 0.73 10*3/uL; MEAN CORPUSCULAR HEMOGLOBIN 27.6 PG (27-31); MEAN CORPUSCULAR HGB CONC 31.6 g/dL (33-37); MEAN CORPUSCULAR VOLUME 87.2 FL (80-90); MEAN PLATELET VOLUME 9.2 FL (7.4-12.2); MONOCYTES # (AUTO) 1.27 10*3/UL (0.3-0.8); MONOCYTES % (AUTO) 15.8 % (5-15); NEUTROPHILS # (AUTO) 5.89 10*3/UL; NEUTROPHILS % (AUTO) 73.5 % (50-80); RED BLOOD COUNT 3.99 10^6/uL (4.70-6.10)
[2017-02-15 21:26] LABS: BLOOD UREA NITROGEN 10 mg/dL (7-22); LIPASE 57 IU/L (23-300); SERUM ALBUMIN 3.8 g/dL (3.5-4.8)
[2017-02-15 21:30] LABS: PLATELET MORPHOLOGY COMMENT NORMAL MORPHOLOGY (NORM); RBC MORPHOLOGY COMMENT NORMAL MORPHOLOGY (NORM); WBC MORPHOLOGY COMMENT NORMAL MORPHOLOGY (NORM)
--- NOTE | 2017-02-15 21:42 | DI ---
HISTORY: None provided. COMPARISON: None available. FINDINGS: Normal chest radiograph. Nonobstructive small bowel gas pattern. Mild gas within the col on with mild constipation. IMPRESSION: 1. Normal chest radiograph. 2. Nonobstructive small bowel gas pattern. 3. Mild gas within the colon with mild constipation.
--- NOTE | 2017-02-15 22:25 | PDOC ---
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 There was question of a small bowel obstruction on the CT when he came in and I spoke with Dr. Jimenez who reviewed the CT with our radiologist who does not think there was an obstruction. And actually clinically the patient improved and today when I saw him there was no symptom . There was no vomiting we thought that he could be discharged home on the steroid after we gave him an IV steroid dosage. He said when he went home an hour after that he started to have abdominal pain felt in the right lower quadrant coming and going there was no body aches no fever though and then he vomited once and because of that he came into the ER. In the ER he was givin pain medication and fluids and was admitted. On his lab he had a potassium of 3.2. Clinically he rates his pain now as 6 out of 10. Past Medical History Medical History: 1. Crohn's disease. 2. Left arm and wrist tendinitis. 3. GERD. 4. Drug-induced Lupus. Surgical History: 1. Two abdominal surgeries for Crohn's disease including resection with ileostomy and subsequent reversal. 2. Left arm surgery/carpal tunnel with tendon releases and repair. 3. Multiple perianal surgeries for Crohn's disease. 4. Appendectomy. 5. Multiple colonoscopies. Pertinent Family History: Significant for Crohn's disease in one of his aunts. Past Social History: Quit smoking, drinks sparingly, , has 2 children, and since December has gone back to work. Tobacco Use: Never Smoker In the Past 12 Months, Have Used or Abuse Any of the Following Substance: None Alcohol Use: None Medication / Allergies Home Medications: Home Medications Medication Instructions Recorded Confirmed Type Budesonide [Budesonide EC] 9 mg PO DAILY cap 04/04/17 09/03/17 History Acetaminophen [Tylenol] 1,000 mg PO Q6H PRN tab 02/15/17 02/15/17 Rx Potassium Chloride [Klor-Con] 10 meq PO DAILY #3 tab 02/15/17 02/15/17 Rx Prednisone 10 mg PO DAILY #8 tab 02/15/17 02/15/17 Rx metroNIDAZOLE Tab [Flagyl Tab] 500 mg PO Q8H #9 tab 02/15/17 02/15/17 Rx Allergies/Adverse Reactions: Allergies 3 Allergy/AdvReac Type Severity Reaction Status Date / Time adalimumab [From Humira] Allergy RASH Verified 02/15/17 20:42 meperidine HCl [From Demerol] AdvReac Intermediate VOMITING Verified 02/15/17 20 :42 infliximab [From Remicade] AdvReac NOT Verified 02/15/17 20:42 APPLICABLE Review of Systems - Review of Systems All Systems: Reviewed & No Additional Complaints Except as Stated Exam - General General Appearance: No Acute Distress, Cooperative - Head Head Exam: Normal Inspection, Atraumatic - Eye Eye Exam: POSITIVE: Normal Appearance - ENT ENT Exam: POSITIVE: Normal Exam - Neck Neck Exam: Normal Inspection - Respiratory Respiratory Exam: POSITIVE: Clear to Auscultation - Bilaterally - Cardiovascular Cardiovascular Exam: POSITIVE: RRR - GI/Abdominal GI/Abdominal Exam: POSITIVE: Normal Bowel Sounds, Non Distended, Soft Additional GI/Abdominal Exam Details: no significant tenderness I pressed on the right lower quadrant and did not elicit tenderness. There is a ventral umbilical hernia is reducible. Extremities there is no edema - Rectal Rectal Exam: POSITIVE: Deferred - Extremities Extremities Exam: POSITIVE: Normal Inspection - Back Back Exam: POSITIVE: Normal Inspection - Neurological Neurological Exam: POSITIVE: Alert, Oriented x 3, CN II-XII Intact, Moves All Extremities Equally - Psychiatric Psychiatric Exam: POSITIVE: Normal Affect Results - Labs CBC and BMP: 02/15/17 21:11 02/16/17 04:22 - Imaging Status: Report Reviewed by Me (X-ray showed the nonobstructive pattern.) Assessment and Plan - Patient Problems (1) Crohn's disease, acute Current Visit: No Status: Acute Comment: I think will resume the IV steroid and Flagyl. The CT machine is not working tonight. Will see whether working tomorrow and maybe repeat the CT and discuss it with gastroenterology again see if they suggestions. Code(s): K50.90 - Crohn's disease, unspecified, without complications (2) Hypokalemia Current Visit: Yes Status: Acute Comment: We'll replace Code(s): E87.6 - Hypokalemia
[2017-02-15] MEDS ORDERED: LIDOCAINE W/ SODIUM BICARB 0.5 ML SYR SUBD PRN (22:26)
[2017-02-15] MEDS ORDERED: ONDANSETRON 4 MG/2 ML VIAL IVP PRN (22:26)
[2017-02-15] MEDS ORDERED: CALCIUM CARBONATE 500 MG (TUMS) CHEWABLE TABLET PO PRN (22:43)
[2017-02-15] MEDS: HYDROmorphone 2 MG/1 ML IVP PRN (22:57)
[2017-02-15] MEDS: methylPREDNISolone 125 MG/2 ML VIAL IVP SCH (23:04)
[2017-02-15] MEDS: metroNIDAZOLE 500mg (Premix) 500 MG/100 ML BAG IV SCH (23:05)
[2017-02-15] MEDS: POTASSIUM CHLORIDE 20 MEQ TAB PO SCH (23:09)
[2017-02-16 05:35] LABS: BLOOD UREA NITROGEN 9 mg/dL (7-22); BUN/CREATININE RATIO 12.85 (6-20)
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
[2017-02-16] MEDS: metroNIDAZOLE 500mg (Premix) 500 MG/100 ML BAG IV SCH (07:55)
[2017-02-16 08:07] VITALS: RESP 20
[2017-02-16] MEDS: POTASSIUM CHLORIDE 20 MEQ TAB PO SCH (08:07)
[2017-02-16] MEDS: HYDROmorphone 2 MG/1 ML IVP PRN ×2 (08:07→11:10)
[2017-02-16] MEDS ORDERED: Pantoprazole Inj 40 MG in Normal Saline Flush 10 ML IVP SCH (09:00)
--- NOTE | 2017-02-16 09:10 | PDOC(PROG) ---
Date and Time of Service: 09/16/2016 9:11 AM Interval History: Subjective Patient continued to have the pain in the right mid and lower abdomen, no vomiting. He did have bowel movements. Objective : Data - Labs CBC and BMP: 02/15/17 21:11 02/16/17 04:22 Objective : Exam - General Additional General Exam Details: He appeared uncomfortable - Head Head Exam: Normal Inspection, Atraumatic - Eye Eye Exam: Normal Appearance - ENT ENT Exam: Normal Exam - Neck Neck Exam: Normal Inspection - Respiratory Respiratory Exam: Clear to Auscultation - Bilaterally - Cardiovascular Cardiovascular Exam: RRR - GI/Abdominal GI/Abdominal Exam: Soft Additional GI/Abdominal Exam Details: There is some tenderness but it's seems to be minimal not impressive it is in the right midabdomen. - Rectal Rectal Exam: Deferred - External Exam: Deferred - Extremities Extremities Exam: Normal Inspection - Back Back Exam: Normal Inspection - Neurological Neurological Exam: Alert, Oriented x 3, CN II-XII Intact, Speech Intact / Clear , Moves All Extremities Equally - Psychiatric Psychiatric Exam: Normal Affect Assessment and Plan - Patient Problems (1) Crohn's disease, acute Current Visit: No Status: Acute Comment: Continue the same treatment. however because of persistent pain I did speak with Dr. Jimenez see his opinion and after that and may speak with a triage specialist if he think there is nothing surgical. CT machine is still down Code(s): K50.90 - Crohn' s disease, unspecified, without complications (2) Hypokalemia Current Visit: Yes Status: Acute Comment: This is replaced. Code(s): E87.6 - Hypokalemia
[2017-02-16] MEDS ORDERED: HYDROmorphone 2 MG/1 ML IVP ONE (09:12)
--- NOTE | 2017-02-16 11:03 | CONSULT ---
Consult Note - Consult Consult Date: 02/16/17 Reason for Consult: PreOp Consulation : General Surgery Requesting Physician: Dr. Rose Primary Care Provider: Jf Chowdhury MD - History of Present Illness History of Present Illness: This is a 36 gentleman who has chronic history of Crohn's disease. He bounces back into the hospital with exasperation of his abdominal pain. He states that he's had a bowel movement. He is not nauseated and vomiting. He threw up once last night but he says is secondary to the discomfort. Again he is passing gas. X-rays is nonspecific gas pattern no evidence of bowel obstruction. Patient does have Crohn's disease. Patient has had multiple abdominal surgeries secondary to trauma. One of these includes have an ileostomy and a takedown of his ileostomy. He has a chronic umbilical hernia and incisional hernia Past Medical History Medical History: 1. Crohn's disease. 2. Left arm and wrist tendinitis. 3. GERD. 4. Drug-induced Lupus. Surgical History: 1. Two abdominal surgeries for Crohn's disease including resection with ileostomy and subsequent reversal. 2. Left arm surgery/carpal tunnel with tendon releases and repair. 3. Multiple perianal surgeries for Crohn's disease. 4. Appendectomy. 5. Multiple colonoscopies. Pertinent Family History: Significant for Crohn's disease in one of his aunts. Past Social History: Quit smoking, drinks sparingly, , has 2 children, and since December has gone back to work. Tobacco Use: Never Smoker In the Past 12 Months, Have Used or Abuse Any of the Following Substance: None Alcohol Use: None Medication / Allergies Home Medications: Home Medications Medication Instructions Recorded Confirmed Type Budesonide [Budesonide EC] 9 mg PO DAILY cap 09/16/16 02/15/17 History Acetaminophen [Tylenol] 1,000 mg PO Q6H PRN tab 02/15/17 02/15/17 Rx Potassium Chloride [Klor-Con] 10 meq PO DAILY #3 tab 02/15/17 02/15/17 Rx Prednisone 10 mg PO DAILY #8 tab 02/15/17 02/15/17 Rx metroNIDAZOLE Tab [Flagyl Tab] 500 mg PO Q8H #9 tab 02/15/17 02/15/17 Rx Allergies/Adverse Reactions: Allergies 3 Allergy/AdvReac Type Severity Reaction Status Date / Time adalimumab [From Humira] Allergy RASH Verified 02/15/17 20:42 meperidine HCl [From Demerol] AdvReac Intermediate VOMITING Verified 02/15/17 20 :42 infliximab [From Remicade] AdvReac NOT Verified 02/15/17 20:42 APPLICABLE Exam - Vitals Vital Signs: Vital Signs Temperature 98.1 F Temperature Source Temporal Artery Scan Pulse Rate [Pulse Oximeter] 55 Pulse Rate 45 Respiratory Rate 20 Blood Pressure [Right Arm] 166/106 Blood Pressure 157/112 Pulse Ox 99 Oxygen Delivery Method Room Air Height 5 ft 11 in Weight 210 lb 3.2 oz - General General Appearance: No Acute Distress, Cooperative - GI/Abdominal GI/Abdominal Exam: POSITIVE: Normal Bowel Sounds, Non Distended, Soft, Hernia, No Hepatomegaly, No Splenomegaly Additional GI/Abdominal Exam Details: Both incisional hernia that is in the right lower quadrant and umbilical hernia are freely reducible. His abdomen has tenderness but no rebound or rigidity Results - Labs CBC and BMP: 02/15/17 21:11 02/16/17 04:22 Assessment and Plan - Patient Problems (1) Abdominal pain Current Visit: Yes Status: Acute Comment: Dilaudid as necessary. Toradol as necessary Code(s): R10.9 - Unspecified abdominal pain (2) Exacerbation of Crohn's disease Current Visit: Yes Status: Acute Comment: He is improving, I did speak with the buildings and grounds superintendent yesterday and with the surgeon as I said in my note. This looks exacerbation of Crohn's disease. Does not look like of intestinal obstruction. I think will advance his diet. We'll start cutting back on the steroid. We will DC his fluid. Continue antibiotics. For heartburn he is on Protonix. Waiting for blood cultures. Probably home tomorrow. He has appointment with the buildings and grounds superintendent on Thursday Code(s): K50.90 - Crohn's disease, unspecified, without complications Qualifiers: Digestive disease complication type: without complication Qualified Code(s) : K50.90 - Crohn's disease, unspecified, without complications - Assessment / Plan Additional Assessment/Plan Details: I think he is suffering from exasperation of his Crohn's disease. The question is has he developed a high-grade stricture. CT scan that was done on his last admissionwas not done with oral contrast therefore, I would like to get a repeat CT scan with oral contrast to see if he has a high-grade stricture
[2017-02-16] MEDS: methylPREDNISolone 125 MG/2 ML VIAL IVP SCH (11:10)
[2017-02-16 11:17] VITALS: BP 138/91; TEMP 98
--- NOTE | 2017-02-16 12:20 | DCSUMMARY ---
Hospitalization Summary Admit Date: 02/15/17 Discharge Date: 02/16/17 Hospital Course: Discharge diagnoses 1. Exacerbation of Crohn's disease question of a stricture 2. 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 History of previous bowel resection 4. History of C. difficile infection 5. History of salmonella stool infection Hospital course This is a 36 years old male with medical history significant for history of Crohn's disease with previous surgery, drug-induced lupus secondary to Remicade who came into the hospital last with history of generalized body ache, abdominal pain and fever on the night of admission. He was admitted and was started on antibiotics and steroid, I saw him on the next day he was making improvement we continued with the same plan of being on steroid and antibiotics I spoke with Dr. Shipman on Thursday, He suggested to start cutting back on the dosage of the steroid and he will follow-up with him as an outpatient on the . Although there was a question of small bowel obstruction on the CT secondary to either umbilical or ventral hernia when he came , which was done without oral contrast, but a review with the CT with our radiologist and Dr. Jimenez they did not think there was an obstruction. The patient clinically actually improved and on the day of discharge there was no vomiting, he was tolerating diet, so we thought that he could be discharged home on steroid and follow-up with Dr. Shipman as scheduled. On the day of discharge I did give him a dosage of Solu-Medrol 125 mg and discharge him on prednisone oral 4o mg a day and also discharge him on Flagyl. However he came in again the same night with abdominal pain and vomiting. Still having the diarrhea. We admitted him. He had abdominal x-rays showed nonspecific gas pattern. His exam was remarkable for some tenderness in the right midabdomen but there was no rebound or guarding. His ventral hernia was reproducible. I did speak with the Dr. Jimenez who saw the patient he recommended a CT of the abdomen with oral and IV contrast to see if there is a stricture causing his symptoms. Unfortunately the CT machine is down and will not be fixed until so I spoke with the orderly and the hospitalist at [facility] and they accepted the patient and I did explain that to the patient had agreed on transfer and patient will be transferred at one point today. Patient on the first admission did have a stool study and was negative for C. difficile. The final stool culture is still pending,but I did speak with the labor representative and they are going to send to state as it may be growing one of the salmonella groups. The significance of this is uncertain as he may be a carrier as stool culture was positive for salmonella group back in October. Laboratory Results 02/15/17 02/15/17 02/16/17 Range/Units 21:11 21:11 04:22 WBC 8.02 (4.8-10.8) 10^3/uL RBC 3.99 L (4.70-6.10) 10^6/uL Hgb 11.0 L (14.0-18.0) g/dL Hct 34.8 L (42.0-52.0) % MCV 87.2 (80-90) FL MCH 27.6 (27-31) PG MCHC 31.6 L (33-37) g/dL RDW Std Deviation 41.5 (39-50) fL RDW Coeff of Fidel 13.3 (11.5-14.5) % Plt Count 473 H (140-350) 10*3/uL MPV 9.2 (7.4-12.2) FL Immature Gran % (Auto) 1.2 (0-5) % Neut % (Auto) 73.5 (50-80) % Lymph % (Auto) 9.1 L (10-50) % Ross % (Auto) 15.8 H (5-15) % Eos % (Auto) 0 (0-8) % Baso % (Auto) 0.4 (0-1) % Immature Gran # (Auto) 0.10 10*3/UL Neut # (Auto) 5.89 10*3/UL Lymph # (Auto) 0.73 10*3/uL Ross # (Auto) 1.27 H (0.3-0.8) 10*3/UL Eos # (Auto) 0 10*3/UL Baso # (Auto) 0.03 10*3/UL WBC Morphology Comment Normal morphology (NORM) Plt Morphology Comment Normal morphology (NORM) RBC Morph Comment Normal morphology (NORM) Sodium 141 141 (135-145) meq/L Potassium 3.2 L 3.8 (3.8-5.2) meq/L Chloride 104 105 (98-112) meq/L Carbon Dioxide 28 26 (23-33) meq/L Anion Gap 9 10 (5-20) BUN 10 9 (7-22) mg/dL Creatinine 0.8 0.7 (0.70-1.50) mg/dL Estimated GFR > 60 > 60 (>60 ml/min/1.73m(2)) BUN/Creatinine Ratio 12.50 12.85 (6-20) Glucose 124 H 124 H (78-110) mg/dL Calculated Osmolality 291.0 291.0 (267-292) mOsm/kg Calcium 9.2 8.7 (8.7-10.7) mg/dL Total Bilirubin 0.4 (0.3-1.2) mg/dL AST 14 L (21-57) IU/L ALT 34 (21-72) IU/L Alkaline Phosphatase 84 (38-126) IU/L C-Reactive Protein 3.0 H (0.0-0.9) mg/dL Total Protein 7.1 (6.1-8.0) g/dL Albumin 3.8 (3.5-4.8) g/dL Globulin 3.3 (2.50-4.10) g/dL Albumin/Globulin Ratio 1.10 L (1.3-2.0) mg/g Amylase 50 (30-110) U/L Lipase 57 (23-300) IU/L Discharge instruction Diet clear liquid Activity as started Medications Active Medications Calcium Carbonate (Tums) 2 tab PO Q4H PRN PRN Reason: Dyspepsia Hydromorphone HCl (Dilaudid Inj) 2 mg IVP Q2H PRN PRN Reason: Pain Last Admin: 02/16/17 11:10 Dose: 2 mg Sodium Chloride (Normal Saline 0.9%) 25 mls @ 200 mls/hr IV .Post Infusion PRN PRN Reason: Flush Potassium Chloride/Sodium Chloride (Pot Chl 20meq + Ns) 1,000 mls @ 125 mls/hr PRIMARY IV .Q8H [facility] Last Admin: 02/16/17 07:55 Dose: 125 mls/hr Metronidazole (Flagyl 500mg (Premix)) 500 mg in 100 mls @ 100 mls/hr IV Q8H [facility] Last Admin: 02/16/17 07:55 Dose: 100 mls/hr Pantoprazole Sodium 40 mg/ (Sodium Chloride) 10 mls @ 5 mls/min IVP DAILY [facility] Last Admin: 02/16/17 08:08 Dose: 5 mls/min Lidocaine HCl (Lidocaine Buffered Inj) 0.5 ml SUBD ONCE PRN PRN Reason: IV Starts Methylprednisolone Sodium Succinate (Solu-Medrol Inj) 125 mg IVP Q12H [facility] Last Admin: 02/16/17 11:10 Dose: 125 mg Non-Formulary Medication (Budesonide [Budesonide Ec]) 9 mg PO DAILY [facility] Last Admin: 02/16/17 08:07 Dose: 9 mg Ondansetron HCl (Zofran Inj) 4 mg IVP Q6H PRN PRN Reason: NAUSEA / VOMITING Potassium Chloride (Klor-Con) 20 meq PO BID [facility] Last Admin: 02/16/17 08:07 Dose: 20 meq Sodium Chloride (Saline Flush) 5 - 20 ml IVP ONCE (ED) PRN PRN Reason: Flush Last Admin: 02/15/17 21:21 Dose: 10 ml Sodium Chloride (Saline Flush) 5 - 20 ml IVP BID PRN PRN Reason: Flush [place] [facility] [place] [place] - Vitals Vital Signs: Vital Signs Temperature 98 F Temperature Source Temporal Artery Scan Pulse Rate [Pulse Oximeter] 71 Pulse Rate 45 Respiratory Rate 20 Blood Pressure [Right Arm] 138/91 Blood Pressure 157/112 Pulse Ox 98 Oxygen Delivery Method Room Air Height 5 ft 11 in Weight 210 lb 3.2 oz Patient Problems - Patient Problem List (1) Crohn's disease, acute Status: Acute Comment: Continue the same treatment. however because of persistent pain I did speak with Dr. Jimenez to see his opinion and after that I may speak with a orderly if he think there is nothing surgical. CT machine is still down Code(s): K50.90 - Crohn's disease, unspecified, without complications Category: Medical (2) Hypokalemia Status: Acute Comment: This is replaced. Code(s): E87.6 - Hypokalemia Category: Medical
== END 2017-02-16 12:56 | disposition short-term general hospital (02) | DRG 387 ==
LOC: ER 20:25 → MED/SURG 22:08
PROVIDERS: ADMIT Internal Medicine; ATTEND Internal Medicine

== ENCOUNTER 2017-03-01 14:31 | Inpatient (IN) ==
[2017-03-01] MEDS ORDERED: ONDANSETRON 4 MG/2 ML VIAL IVP ONE (14:40)
[2017-03-01] MEDS ORDERED: Sodium Chloride 0.9% 1,000 ML PRIMARY IV ONE (14:40)
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
[2017-03-01 14:53] LABS: BASOPHILS # (AUTO) 0.02 10*3/UL; BASOPHILS % (AUTO) 0.1 % (0-1); EOSINOPHILS # (AUTO) 0.07 10*3/UL; EOSINOPHILS % (AUTO) 0.4 % (0-8); Hematocrit [HCT] 35.3 % (42.0-52.0); Hemoglobin [HGB] 10.8 g/dL (14.0-18.0); LYMPHOCYTES # (AUTO) 0.85 10*3/uL; MEAN CORPUSCULAR HEMOGLOBIN 27.3 PG (27-31); MEAN CORPUSCULAR HGB CONC 30.6 g/dL (33-37); MEAN CORPUSCULAR VOLUME 89.4 FL (80-90); MEAN PLATELET VOLUME 9.4 FL (7.4-12.2); MONOCYTES % (AUTO) 4.7 % (5-15); NEUTROPHILS # (AUTO) 15.08 10*3/UL; NEUTROPHILS % (AUTO) 89.5 % (50-80); RED BLOOD COUNT 3.95 10^6/uL (4.70-6.10)
[2017-03-01] MEDS: HYDROmorphone 2 MG/1 ML IVP ONE ×2 (14:56→15:12)
[2017-03-01 15:03] LABS: BLOOD UREA NITROGEN 12 mg/dL (7-22); GAMMA GLUTAMYL TRANSPEPTIDASE 29 IU/L (8-78); LIPASE 210 IU/L (23-300); MAGNESIUM 2.2 mg/dL (1.6-2.4); SERUM ALBUMIN 4.2 g/dL (3.5-4.8)
[2017-03-01 15:06] LABS: PLATELET MORPHOLOGY COMMENT NORMAL MORPHOLOGY (NORM); RBC MORPHOLOGY COMMENT NORMAL MORPHOLOGY (NORM); WBC MORPHOLOGY COMMENT NORMAL MORPHOLOGY (NORM)
[2017-03-01] MEDS ORDERED: LORazepam 2 MG/1 ML VIAL IVP ONE (15:15)
[2017-03-01] MEDS ORDERED: HYDROmorphone 2 MG/1 ML IVP ONE ×2 (15:16→17:52)
[2017-03-01 15:52] LABS: CLARITY,URINE CLEAR (CLEAR); COLOR,URINE YELLOW (Y); PH,URINE 6.5 (5.0-8.5); URINE SAMPLE TYPE CLEAN CATCH URINE
[2017-03-01 15:53] LABS: BACTERIA,URINE RARE; BILIRUBIN,URINE NEGATIVE (NEG); GLUCOSE, URINE (UA) NEGATIVE (NEG); NITRATE,URINE NEGATIVE (NEG); OCCULT BLOOD,URINE NEGATIVE (NEG); PROTEIN,URINE NEGATIVE (NEG); SQUAMOUS EPITHELIAL CELL,UR RARE; UROBILINOGEN,URINE 0.2 EU/dL (0.2)
--- NOTE | 2017-03-01 17:26 | DI ---
EXAM: CT Abdomen and Pelvis Without Intravenous Contrast CLINICAL HISTORY: Physician Notes: Tech Comments: TECHNIQUE: Axial computed tomography images of the abdomen and pelvis without intravenous contrast. COMPARISON: 02/12/17. FINDINGS: Lower thorax: No acute findings. ABDOMEN: Liver: Unremarkable. Gallbladder and bile ducts: Unremarkable. No calcified stones. No ductal dilation. Pancreas: Unremarkable. No ductal dilation. Spleen: Unremarkable. No splenomegaly. Adrenals: Unremarkable. No mass. Kidneys and ureters: Unremarkable. No obstructing stones. No hydronephrosis. Stomach and bowel: Partial small bowel obstruction with an ileal transition point in the right lower quadrant several centimeters proximal to the ileocecal valve. No abscess or free air. Periumbilical hernia again contains the anterior wall of a short segment of small bowel (Brewer's hernia). No wall thickening or adjacent fluid to suggest strangulation. Rightward abdominal hernia, likely incisional. This had contained bowel, but now only contains fat. Status post appendectomy. Redemonstrated descending colitis. Decreased inflammatory edema compared to prior study. No abscess or free air. Linear density at the anorectum is again noted. Question ongoing treatment of an anal fistula. PELVIS: Bladder: Unremarkable. No stones. Reproductive: Unremarkable as visualized. 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 Suspect ununited left transverse process fractures at multiple lumbar levels. No acute fracture. Vasculature: Unremarkable. No abdominal aortic aneurysm. Lymph nodes: Unremarkable. No enlarged lymph nodes. IMPRESSION: Partial SBO, transition point in the RLQ. Improved descending colitis. Redemonstrated paraumbilical Brewer's hernia. Incidental findings as detailed above.
[2017-03-01] MEDS ORDERED: KETOROLAC 15 MG/1 ML VIAL IVP PRN (18:21)
[2017-03-01] MEDS ORDERED: NORMAL SALINE 10 ML SYRINGE FLUSH IVP PRN (18:21)
[2017-03-01] MEDS ORDERED: HYDROmorphone 2 MG/1 ML IVP PRN ×2 (18:21→18:55)
[2017-03-01] MEDS ORDERED: ONDANSETRON 4 MG/2 ML VIAL IVP PRN (18:21)
[2017-03-01] MEDS ORDERED: ACETAMINOPHEN 325 MG TABLET PO PRN (18:21)
[2017-03-01] MEDS ORDERED: LIDOCAINE W/ SODIUM BICARB 0.5 ML SYR SUBD PRN (18:21)
[2017-03-01] MEDS ORDERED: Prochlorperazine Edisylate Inj 10mg/2ml vial IVP PRN (18:21)
--- NOTE | 2017-03-01 19:16 | CONSULT ---
Consult Note - Consult Consult Date: 03/01/17 Reason for Consult: PreOp Consulation : General Surgery Requesting Physician: Dr. Shah Primary Care Provider: Jf Chowdhury MD - History of Present Illness History of Present Illness: Patient is a 36-year-old male with a long history of Crohn's disease. He was hospitalized here for an exacerbation early in February. He was transferred to [place]. He was having bloody diarrhea at that time. He was in the hospital a few days and then discharged home. He had been doing well until this morning. He had a Salmonella infection as well which is been treated. Whether it is completely cleared or not is unclear. This morning he reports he had a large bowel movement for him. He denies blood. He ate some oatmeal and then began cramping. He reports he had a good- sized breakfast. He denies dietary indiscretion. The cramps persisted and he presented to the hospital. He was not having nausea or vomiting. There were no fevers or chills involved. He had some pain medications and felt much better until just now. He is starting to have cramps again. In the emergency room he had a CT scan which showed dilated proximal small bowel with a transition zone in his right lower quadrant. This is in his terminal ileum close to the ileocecal valve. He has fecalization of the small intestinal contents. The inflammatory changes he had on his last CT are improved. There is some evidence of improved descending colitis. His small bowel is significantly more dilated. He has an umbilical hernia which is chronic. He has a hernia at his stoma site which is not out today. He reports both hernias are little tender today. Patient had a perforated intestine and had a small bowel resection with ileostomy. This was 12 years ago when he was diagnosed with Crohn's disease. He had a subsequent takedown. He's had multiple perianal procedures for his Crohn's disease but no other intra-abdominal procedures. Patient has been on multiple medicines for his Crohn's disease. He was intolerant of some and some didn't seem to work. He is followed by gastroenterology in [place]. They have done multiple colonoscopies and upper endoscopies. In the past the patient was also seen at the [facility]. They diagnoses drug-induced lupus. Review of Systems - Gastrointestinal Gastrointestinal / Abdominal: REPORTS: Abdominal Pain, Bloody Stool (Recent but not at the present time.), Heartburn (History of), See HPI Past Medical History Medical History: 1. Crohn's disease. 2. Left arm and wrist tendinitis. 3. GERD. 4. Drug-induced Lupus. Surgical History: 1. Two abdominal surgeries for Crohn's disease including resection with ileostomy and subsequent reversal. 2. Left arm surgery/carpal tunnel with tendon releases and repair. 3. Multiple perianal surgeries for Crohn's disease. 4. Appendectomy. 5. Multiple colonoscopies. Pertinent Family History: Significant for Crohn's disease in one of his aunts. Past Social History: Quit smoking, drinks sparingly, , has 2 children, and since December has gone back to work. Tobacco Use: Current Some Day Smoker In the Past 12 Months, Have Used or Abuse Any of the Following Substance: None Medication / Allergies Home Medications: Home Medications Medication Instructions Recorded Confirmed Type Budesonide [Budesonide EC] 9 mg PO DAILY cap 09/16/16 03/01/17 History Acetaminophen [Tylenol] 1,000 mg PO Q6H PRN tab 02/15/17 03/01/17 Rx Potassium Chloride [Klor-Con] 10 meq PO DAILY #3 tab 02/15/17 03/01/17 Rx Prednisone 10 mg PO DAILY #8 tab 02/15/17 03/01/17 Rx metroNIDAZOLE Tab [Flagyl Tab] 500 mg PO Q8H #9 tab 02/15/17 03/01/17 Rx Azathioprine [Imuran] 50 mg PO DAILY 03/01/17 03/01/17 History L.acidoph,Paracasei, B.lactis 1 ea PO DAILY 03/01/17 03/01/17 History [Probiotic] Tramadol HCl 50 - 100 mg PO Q6H PRN PRN 03/01/17 03/01/17 History Allergies/Adverse Reactions: Allergies 3 Allergy/AdvReac Type Severity Reaction Status Date / Time adalimumab [From Humira] Allergy RASH Verified 03/01/17 18:36 meperidine HCl [From Demerol] AdvReac Intermediate VOMITING Verified 03/01/17 18 :36 infliximab [From Remicade] AdvReac NOT Verified 03/01/17 18:36 APPLICABLE Exam - Vitals Vital Signs: Vital Signs Temperature 97.5 F Temperature Source Temporal Artery Scan Pulse Rate 85 Blood Pressure 106/67 Pulse Ox 97 Height 5 ft 11 in Weight 202 lb 4 oz - General General Appearance: Cooperative, Mild Distress - Respiratory Respiratory Exam: POSITIVE: Clear to Auscultation - Bilaterally, Breathing Non Labored - Cardiovascular Cardiovascular Exam: POSITIVE: RRR, No Murmur - GI/Abdominal GI/Abdominal Exam: POSITIVE: Soft, Guarding (Voluntary) Additional GI/Abdominal Exam Details: Abdomen is soft but diffusely tender. No rebound or peritoneal signs. He has voluntary guarding. He has a hernia at his umbilicus which is tender. He has a hernia site in his right mid abdomen which is at his ostomy site which is not out today and is also a bit tender. He does not have an acute abdomen. His bowel sounds are abnormal with rushes and tinkles. - Rectal Rectal Exam: POSITIVE: Deferred - Neurological Neurological Exam: POSITIVE: Alert, Oriented x 3 - Psychiatric Psychiatric Exam: POSITIVE: Normal Affect, Normal Mood Assessment and Plan - Patient Problems (1) Small bowel obstruction, partial Current Visit: Yes Status: Acute Priority: High Onset Date: ~03/01/17 Comment: Patient appears to have a high-grade partial small bowel obstruction. This could be scar tissue or something else mechanical or it could be an exacerbation of his Crohn's disease. He has not had bleeding for the last several days. I think it's more likely mechanical or scar tissue. I discussed the case with the patient, his , and Dr. Shah. He needs an NG tube and bowel rest. We will follow serial abdominal x-rays. He will be started on steroids and antibiotics. We will follow his clinical course for the next 48 hours. If he improves we will refer him back to gastroenterology. If he doesn' t open up we may need to consider surgery which would most likely it include excision of his terminal ileum and cecum with an ileal to ascending colon anastomosis. I would also repair his hernias at that time. Hopefully we can avoid surgery. I also told him if he chooses he could go to a larger institution if he needs surgery. I will follow along with you throughout his hospitalization. (2) Crohns disease Current Visit: Yes Status: Chronic Priority: Medium Onset Date: Unknown Comment: Patient has had Crohn's disease for at least 12 years. This could be an acute exacerbation. He will be treated as such initially. Code(s): K50.90 - Crohn's disease, unspecified, without complications (3) Abdominal pain Current Visit: Yes Status: Acute Comment: Secondary to the above 2 diagnoses. Controlled with pain medications as indicated. Code(s): R10.9 - Unspecified abdominal pain Results - Labs CBC and BMP: 03/01/17 14:47 03/01/17 14:47
[2017-03-01] MEDS: Sodium Chloride 0.9% 1,000 ML PRIMARY IV SCH (19:29)
[2017-03-01] MEDS ORDERED: methylPREDNISolone 125 MG/2 ML VIAL IVP ONE (19:35)
[2017-03-01] MEDS ORDERED: Sodium Chloride 0.9% 2,000 ML PRIMARY IV ONE (19:36)
[2017-03-01] MEDS ORDERED: LIDOCAINE HCL 5 ML JEL TOPICAL ONE ×2 (19:38→20:54)
--- NOTE | 2017-03-01 19:47 | PDOC ---
HPI - History of Present Illness Date and Time of Service: 03/01/20171944 Chief Complaint: Abdominal pain and cramping History of Present Illness: Kostas is a well-known 36-year-old male with Crohn's disease with frequent exacerbations, history of bowel obstructions, and recurrent perianal fistulas. He came in, accompanied by his , with complaints of abdominal cramping that eval today. He was recently admitted with a Crohn's disease exacerbation, placed on 6-MP, continued on Entocort, and also placed on Flagyl and was seen in [place] by his astronomy teacher in the hospital. At that time he had bloody diarrhea and high fevers. Those symptoms have resolved, but he states this morning he ate some oatmeal, and sometime this afternoon around 1:00 came down with severe abdominal cramping and that was quite painful. He had nausea but no vomiting. No fevers today. He denies any bloody diarrhea currently. He 's had significantly worse joint pains and arthralgias, particularly in his knees and hips and jaw. He has been difficult to control on an outpatient side from his Crohn's disease and has been on Entocort's as sole therapy for some time. He tried Remicade in the past but developed drug-induced lupus from that that was treated in [place]. He failed Humira therapy as well. He has not seen [facility] or any other university setting for other opinions regarding his Crohn's disease. Interestingly, on stool cultures from his earlier admission this month, he had Salmonella group C 1. The state lab also knows about this. Infectious disease group was notified and [place] and the patient was told to call if he had any further diarrhea as it's presume that this could be a chronic state as he's had Salmonella before and the patient could be a carrier. He has not had any EGD or colonoscopy recently. He had prior surgery for his Crohn's disease about 12 years ago with an ileostomy and then an eventual takedown. He stated to me that he also had a ureteral injury at the time of that surgery that required a ureteral stent. He is not currently complaining of any anal fistulas, but they aren't very frequent in his history. His Crohn's disease activity index scored at 620 points, consistent with fulminant Crohn's estimation. He tried walking to make his symptoms better today and it didn't work and a CT scan showed a high-grade small bowel obstruction with a clear transition point. I discussed with surgery and consult of Dr. Carbajal who examined the patient with me, we also looked at the CT scan together. The patient may very well have an underlying stricture and the decision at this point is to manage medically for the next 24- 48 hours with steroids, antibiotics, NG tube, fluids and electrolytes, and then determine whether or not surgery would be necessary. The options were given to the patient to consider transfer if that comes to fruition and consider [place] for evaluation. Past Medical History Medical History: 1. Crohn's disease, very difficult to control currently with a CDA I of 620. Has not done well with Biologics to this point including Remicade which caused drug-induced lupus. 2. GERD. 3. 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 Surgical History: 1. Two abdominal surgeries for Crohn's disease including resection with ileostomy and subsequent reversal. The patient also had a ureteral injury at the time of the surgery that required stent placement on the right. 2. Left arm surgery/carpal tunnel with tendon releases and repair. 3. Multiple perianal surgeries for Crohn's disease. 4. Appendectomy. 5. Multiple colonoscopies. 6. EGD, negative. Pertinent Family History: Significant for Crohn's disease in one of his aunts. Past Social History: smokes 2-3 cigarettes daily, , has 2 children, and since December has gone back to work. Tobacco Use: Current Some Day Smoker (2-3 cigarettes.) In the Past 12 Months, Have Used or Abuse Any of the Following Substance: None Alcohol Use: None Medication / Allergies Home Medications: Home Medications Medication Instructions Recorded Confirmed Type Budesonide [Budesonide EC] 9 mg PO DAILY cap 09/16/16 03/01/17 History Acetaminophen [Tylenol] 1,000 mg PO Q6H PRN tab 02/15/17 03/01/17 Rx Potassium Chloride [Klor-Con] 10 meq PO DAILY #3 tab 02/15/17 03/01/17 Rx Prednisone 10 mg PO DAILY #8 tab 02/15/17 03/01/17 Rx metroNIDAZOLE Tab [Flagyl Tab] 500 mg PO Q8H #9 tab 02/15/17 03/01/17 Rx Azathioprine [Imuran] 50 mg PO DAILY 03/01/17 03/01/17 History L.acidoph,Paracasei, B.lactis 1 ea PO DAILY 03/01/17 03/01/17 History [Probiotic] Tramadol HCl 50 - 100 mg PO Q6H PRN PRN 03/01/17 03/01/17 History Allergies/Adverse Reactions: Allergies 3 Allergy/AdvReac Type Severity Reaction Status Date / Time adalimumab [From Humira] Allergy RASH Verified 03/01/17 18:36 meperidine HCl [From Demerol] AdvReac Intermediate VOMITING Verified 03/01/17 18 :36 infliximab [From Remicade] AdvReac NOT Verified 03/01/17 18:36 APPLICABLE Review of Systems - Review of Systems All Systems: Reviewed & No Additional Complaints Except as Stated (I did a 12 point review of systems and it is as per HPI and as that noted below:) - Constitutional Constitutional: REPORTS: General Health Poor, Diffuse Myalgias, Malaise - Respiratory Respiratory: REPORTS: Negative System Review - Cardiovascular Cardiovascular: REPORTS: Negative System Review - Gastrointestinal Gastrointestinal / Abdominal: REPORTS: See HPI - Genitourinary Genitourinary: REPORTS: Negative System Review - Musculoskeletal Musculoskeletal: REPORTS: Joint Pain - Hips (jaw stiffness, currently resolved.) , Joint Pain - Knees, Other - Neurological Neurologic: REPORTS: Negative System Review - Psychiatric Psychiatric: REPORTS: Negative System Review Exam - Vitals Vital Signs: Vital Signs Temperature 97.5 F Temperature Source Temporal Artery Scan Pulse Rate 85 Blood Pressure 106/67 Pulse Ox 97 Height 5 ft 11 in Weight 202 lb 4 oz - General General Appearance: No Acute Distress, Cooperative - Head Head Exam: Normal Inspection, Normocephalic, Atraumatic - Eye Eye Exam: POSITIVE: No Scleral Icterus - ENT ENT Exam: POSITIVE: Mucous Membranes Dry - Neck Neck Exam: Normal Inspection, No Tenderness, No Lymphadenopathy, No Thyromegaly - Respiratory Respiratory Exam: POSITIVE: Clear to Auscultation - Bilaterally, Breathing Non Labored, Normal to Percussion and Palpation - Cardiovascular Cardiovascular Exam: POSITIVE: RRR, No Murmur, No Clicks, No Gallops, No Rubs, No JVD - GI/Abdominal GI/Abdominal Exam: POSITIVE: Non Distended, Soft, Hypoactive Bowel Sounds - Rectal Rectal Exam: POSITIVE: Deferred - External Exam: POSITIVE: Deferred - Extremities Extremities Exam: POSITIVE: No Clubbing Present, No Edema Present, No Cyanosis Present - Back Back Exam: POSITIVE: Normal Inspection, No CVA Tenderness - Neurological Neurological Exam: POSITIVE: Alert, Oriented x 3, No Facial Droop, Speech Intact / Clear, Moves All Extremities Equally - Psychiatric Psychiatric Exam: POSITIVE: Normal Affect, Normal Mood - Central Line Examination Central Line Present on Admission: No Results - Labs CBC and BMP: 03/01/17 14:47 03/01/17 14:47 Additional Lab Results: Laboratory Results 03/01/17 03/01/17 03/01/17 Range/Units 14:40 14:47 14:47 WBC 16.87 H (4.8-10.8) 10^3/uL RBC 3.95 L (4.70-6.10) 10^6/uL Hgb 10.8 L (14.0-18.0) g/dL Hct 35.3 L (42.0-52.0) % MCV 89.4 (80-90) FL MCH 27.3 (27-31) PG MCHC 30.6 L (33-37) g/dL RDW Std Deviation 47.0 (39-50) fL RDW Coeff of Fidel 14.8 H (11.5-14.5) % Plt Count 672 H (140-350) 10*3/uL MPV 9.4 (7.4-12.2) FL Immature Gran % (Auto) 0.3 (0-5) % Neut % (Auto) 89.5 H (50-80) % Lymph % (Auto) 5.0 L (10-50) % Dundy % (Auto) 4.7 L (5-15) % Eos % (Auto) 0.4 (0-8) % Baso % (Auto) 0.1 (0-1) % Immature Gran # (Auto) 0.05 10*3/UL Neut # (Auto) 15.08 10*3/UL Lymph # (Auto) 0.85 10*3/uL Dundy # (Auto) 0.80 (0.3-0.8) 10*3/UL Eos # (Auto) 0.07 10*3/UL Baso # (Auto) 0.02 10*3/UL WBC Morphology Comment Normal morphology (NORM) Plt Morphology Comment Normal morphology (NORM) RBC Morph Comment Normal morphology (NORM) Sodium 138 (135-145) meq/L Potassium 4.5 (3.8-5.2) meq/L Chloride 101 (98-112) meq/L Carbon Dioxide 26 (23-33) meq/L Anion Gap 11 (5-20) BUN 12 (7-22) mg/dL Creatinine 0.8 (0.70-1.50) mg/dL Estimated GFR > 60 (>60 ml/min/1.73m(2)) BUN/Creatinine Ratio 15.00 (6-20) Glucose 96 (78-110) mg/dL Calculated Osmolality 285.0 (267-292) mOsm/kg Lactic Acid 2.1 (0.70-2.10) MMOL/L Calcium 9.8 (8.7-10.7) mg/dL Magnesium 2.2 (1.6-2.4) mg/dL Total Bilirubin 0.4 (0.3-1.2) mg/dL GGT 29 (8-78) IU/L AST 14 L (21-57) IU/L ALT 32 (21-72) IU/L Alkaline Phosphatase 87 (38-126) IU/L Total Protein 7.6 (6.1-8.0) g/dL Albumin 4.2 (3.5-4.8) g/dL Globulin 3.4 (2.50-4.10) g/dL Albumin/Globulin Ratio 1.20 L (1.3-2.0) mg/g Amylase 129 H (30-110) U/L Lipase 210 (23-300) IU/L Ur Collection Type Clean catch urine Urine Color Yellow (Y) Urine Clarity Clear (CLEAR) Urine pH 6.5 (5.0-8.5) Ur Specific [place] 1.020 (1.005-1.030) Urine Protein Negative (NEG) mg/dl Urine Glucose (UA) Negative (NEG) mg/dL Urine Ketones Negative (NEG) Urine Occult Blood Negative (NEG) Urine Nitrate Negative (NEG) Urine Bilirubin Negative (NEG) Urine Urobilinogen 0.2 (0.2) EU/dL Ur Leukocyte Esterase Trace (NEG) Urine RBC 1-3 (NONE) /hpf Urine WBC 2-4 (NONE) Ur Squamous Epith Cells Rare (NONE) Ur Renal Epithelial Cell None (NONE) Urine Crystals None Urine Bacteria Rare (NONE) Urine Casts None (NONE) Urine Mucus None (NONE) Urine Trichomonas None (NONE) Urine Yeast None (NONE) Ur Culture Indicated? Culture not set - Imaging Status: Image Reviewed by Me (I reviewed the CT scan with Dr. Carbajal, and it shows dilated loops of small bowel consistent with obstruction. There could be a stricture at the transition point.) Assessment and Plan - Patient Problems (1) Small bowel obstruction, partial Current Visit: Yes Status: Acute Priority: High Onset Date: ~03/01/17 (2) Exacerbation of Crohn's disease Current Visit: Yes Status: Acute Code(s): K50.90 - Crohn's disease, unspecified, without complications Qualifiers: Digestive disease complication type: with intestinal obstruction Qualified Code(s): K50.912 - Crohn's disease, unspecified, with intestinal obstruction (3) Anemia Current Visit: Yes Status: Acute Code(s): D64.9 - Anemia, unspecified Qualifiers: Anemia type: other cause Other causes of anemia: chronic disease, other Qualified Code(s): D63.8 - Anemia in other chronic diseases classified elsewhere (4) Tobacco abuse Current Visit: No Status: Acute Code(s): Z72.0 - Tobacco use - Assessment / Plan Additional Assessment/Plan Details: Admit the patient. Surgery consult obtained, discussed the case in depth with Dr. Carbajal. It is most likely that this is a stricture and could very well require surgery if this does not clear medically with NG tube, conservative therapy, and treatment for possible or probable Crohn's exacerbation that may be causing this obstruction. We reviewed the CT scans from the last month or so, and it appears that the loops of small bowel were dilated on prior studies but not as prominent as this one. It is not clear if it will resolve with medical therapy. NG tube to low intermittent wall suction. IV fluids, bolus 2 L of normal saline and then continue at 125 an hour. Check labs, electrolytes in the morning. KUB of the done in the morning. I will continue Flagyl and an IV form. I curb sided infectious disease in [place], and I suggested that at this time the Salmonella group C 1 is likely a carrier state and that given the patient's history, he probably should be treated as an outpatient or treated acutely if the patient develops fevers, bloody diarrhea or other symptoms. But at this time it was recommended to hold off on additional fluoroquinolones or other antibiotics outside of Flagyl for this chronic carrier state. In fact was recommended that it could extend the carrier state. I will start IV steroids. At this time, I'll stop Imuran, and I'll hold off on Entocort as the patient will be on IV steroids. We can resume these when diet is resumed. I think the patient might benefit from a phoenicia referral should he continue to have issues so that he has multi specialty support including surgery, gastroenterology, internal medicine, and infectious disease. We discussed that with Dr. Carbajal as well, and we will cross that bridge when we get to that point. Plan above was discussed with the patient and his and they agreed.
[2017-03-01] MEDS ORDERED: metroNIDAZOLE Tab 500 MG TAB PO SCH (20:00)
[2017-03-01] MEDS: metroNIDAZOLE 500mg (Premix) 500 MG/100 ML BAG IV SCH (20:15)
--- NOTE | 2017-03-01 20:43 | DI ---
EXAM: XR Abdomen, 1 View CLINICAL HISTORY: NG tube TECHNIQUE: Frontal supine view of the abdomen/pelvis. COMPARISON: CT 03/01/2017 FINDINGS: Lower thorax: Esophagogastric tube terminates in the stomach. Intraperitoneal space: No pneumatosis or pneumoperitoneum. Gastrointestinal tract: Prominent gas filled loops of small bowel are present in the left upper quadrant. Bones/joints: No acute fracture or malalignment. IMPRESSION: Esophagogastric tube terminates in the stomach.
[2017-03-01] MEDS: HYDROmorphone 2 MG/1 ML IVP PRN (23:06)
[2017-03-02] MEDS: HYDROmorphone 2 MG/1 ML IVP PRN ×8 (00:42→20:30)
[2017-03-02] MEDS: PHENOL/SODIUM PHENOLATE 177 ML SPRAY PO PRN ×2 (01:14→13:34)
[2017-03-02] MEDS: metroNIDAZOLE 500mg (Premix) 500 MG/100 ML BAG IV SCH ×3 (03:30→20:30)
[2017-03-02 04:51] LABS: BASOPHILS # (AUTO) 0.01 10*3/UL; BASOPHILS % (AUTO) 0.1 % (0-1); EOSINOPHILS # (AUTO) 0 10*3/UL; EOSINOPHILS % (AUTO) 0 % (0-8); Hematocrit [HCT] 29.9 % (42.0-52.0); LYMPHOCYTES # (AUTO) 0.41 10*3/uL; MEAN CORPUSCULAR HEMOGLOBIN 26.9 PG (27-31); MEAN CORPUSCULAR HGB CONC 30.1 g/dL (33-37); MEAN CORPUSCULAR VOLUME 89.5 FL (80-90); MEAN PLATELET VOLUME 9.6 FL (7.4-12.2); MONOCYTES # (AUTO) 0.06 10*3/UL (0.3-0.8); MONOCYTES % (AUTO) 0.6 % (5-15); NEUTROPHILS # (AUTO) 8.76 10*3/UL; NEUTROPHILS % (AUTO) 94.6 % (50-80); RED BLOOD COUNT 3.34 10^6/uL (4.70-6.10)
[2017-03-02 05:02] LABS: WBC MORPHOLOGY COMMENT NORMAL MORPHOLOGY (NORM)
[2017-03-02 05:03] LABS: BLOOD UREA NITROGEN 13 mg/dL (7-22); BUN/CREATININE RATIO 18.57 (6-20); PLATELET MORPHOLOGY COMMENT SEE COMMENTS (NORM); RBC MORPHOLOGY COMMENT SEE COMMENTS (NORM); SERUM ALBUMIN 3.5 g/dL (3.5-4.8)
[2017-03-02] MEDS ORDERED: AZATHIOPRINE 50 MG PO SCH (09:00)
[2017-03-02] MEDS: methylPREDNISolone 125 MG/2 ML VIAL IVP SCH ×2 (09:11→20:30)
[2017-03-02] MEDS: Sodium Chloride 0.9% 1,000 ML PRIMARY IV SCH ×2 (09:26→18:53)
[2017-03-02] MEDS: ACIDOPH PARACASEI B LACTIS PO SCH (09:27)
[2017-03-02] MEDS: predniSONE Tab 10 MG TAB PO SCH (09:27)
[2017-03-02] MEDS: Pantoprazole Inj 40 MG in Normal Saline Flush 10 ML IVP SCH (09:46)
--- NOTE | 2017-03-02 13:37 | DI ---
XR ABDOMEN KUB UPRIGHT,03/02/2017 7:00 AM: Clinical History: Partial small bowel obstruction. Previous Exam: March 01, 2017 Findings: 2 views of the abdomen and pelvis are obtained, and demonstrate a nonobstructive bowel gas pattern. P ostsurgical changes are seen in the midabdomen. There is a nasogastric tube noted with the tip in the stomach. There are a few air-fluid levels, but no dilation. There is a normal variant involving the transverse processes of the first and third lumbar levels. Vertebral body height is preserved. No pathologic calcifications are seen. Impression: A few remaining air-fluid levels without evidence of dilation. This is consistent with resolving smal l bowel obstruction.
--- NOTE | 2017-03-02 16:22 | PDOC(PROG) ---
Date and Time of Service: 03/02/2017. Patient was seen at 9:15 AM and 4 PM Interval History: Patient reports he feels much better. This morning when I saw him he reports that he had had stool and flatus. His NG tube was putting out thin liquid. This afternoon when I see him he says he has had more stool and flatus. He is not having the crampy abdominal pain that he had. I reviewed the x-rays with the radiologist. He thinks his high-grade obstruction was secondary to a Crohn's exacerbation in the terminal ileum. The plain film today looks much better than the film yesterday without the dilated and air-filled loops of small bowel. Objective : Data - Labs CBC and BMP: 03/02/17 04:30 03/02/17 04:30 - Imaging Imaging Details: Flat and upright x-ray showed a few air-fluid levels. Much less dilation than yesterday. Lots of stool in the cecum and colon. No evidence of a high-grade obstruction. - Vital Signs Vital Signs and I&O: Vital Signs - Last Taken Temperature 98 F 03/02/17 11:26 Pulse Rate 76 03/02/17 11:26 Respiratory Rate 18 03/02/17 11:26 Blood Pressure 113/64 03/02/17 11:26 Pulse Ox 96 03/02/17 11:26 Intake and Output (24hr x 4 totals) 02/28/17 03/01/17 03/02/17 03/03/17 05:59 05:59 05:59 05:59 Intake Total 3287 / 4287 120 / 120 Output Total 2175 / 2175 1250 / 1250 Balance 1112 / 2112 -1130 / -1130 Objective : Exam - General General Appearance: No Acute Distress, Cooperative - Respiratory Respiratory Exam: Clear to Auscultation - Bilaterally, Breathing Non Labored - Cardiovascular Cardiovascular Exam: RRR, No Murmur - GI/Abdominal GI/Abdominal Exam: Non Distended, Soft, Diminished Bowel Sounds Additional GI/Abdominal Exam Details: Much less tender today than yesterday. No masses. No signs of peritonitis. - Neurological Neurological Exam: Alert, Oriented x 3 - Psychiatric Psychiatric Exam: Normal Affect, Normal Mood Assessment and Plan - Patient Problems (1) Small bowel obstruction, partial Current Visit: Yes Status: Acute Priority: High Onset Date: ~03/01/17 Comment: Probably secondary to his Crohn's disease. Improved. Check a.m. labs and x-rays. Clamp NG tube. Discontinue later today if he doesn't have any significant residual. I discussed this with the patient, his , and Dr. Shah. (2) Crohns disease Current Visit: Yes Status: Chronic Priority: Medium Onset Date: Unknown Comment: Exacerbation. On high-dose steroids. Seems to be improving. Probably should be seen in a [place] for gastroenterology input. I believe the patient would benefit from resection of his terminal ileum and cecum. Code(s): K50.90 - Crohn's disease, unspecified, without complications (3) Abdominal pain Current Visit: Yes Status: Acute Comment: Improved. Continue same. Code(s): R10.9 - Unspecified abdominal pain
--- NOTE | 2017-03-02 16:49 | PDOC(PROG) ---
Date and Time of Service: 03/02/2017, 1645 Interval History: feels much better, pain and nausea and cramping better controlled. Spoke with Dr. Carbajal and he felt after review of the CT scan with radiology that the terminal ileum looks inflamed. may still need resection, but we are most interested in getting opinion of GI at [facility] in terms of managing the Crohn's disease so that hopefully we can avoid further exacerbations as much as possible. 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 He has been on Entocort for maintenance therapy, and is currently on Flagyl and higher dose Solu-Medrol for what presumably is an acute exacerbation. In addition I did speak with infectious disease and they feel that a limitation of the carrier state of salmonella may be of some value but they recommended no treatment unless the patient shows worsening signs of acute exacerbation with bloody diarrhea and fevers. Otherwise they would like to deal with things post any surgery done in the future. Objective : Data - Labs CBC and BMP: 03/02/17 04:30 03/02/17 04:30 Additional Lab Results: Laboratory Results 03/01/17 03/01/17 03/01/17 Range/Units 14:40 14:47 14:47 WBC 16.87 H (4.8-10.8) 10^3/uL RBC 3.95 L (4.70-6.10) 10^6/uL Hgb 10.8 L (14.0-18.0) g/dL Hct 35.3 L (42.0-52.0) % MCV 89.4 (80-90) FL MCH 27.3 (27-31) PG MCHC 30.6 L (33-37) g/dL RDW Std Deviation 47.0 (39-50) fL RDW Coeff of Fidel 14.8 H (11.5-14.5) % Plt Count 672 H (140-350) 10*3/uL MPV 9.4 (7.4-12.2) FL Immature Gran % (Auto) 0.3 (0-5) % Neut % (Auto) 89.5 H (50-80) % Lymph % (Auto) 5.0 L (10-50) % Rice % (Auto) 4.7 L (5-15) % Eos % (Auto) 0.4 (0-8) % Baso % (Auto) 0.1 (0-1) % Immature Gran # (Auto) 0.05 10*3/UL Neut # (Auto) 15.08 10*3/UL Lymph # (Auto) 0.85 10*3/uL Rice # (Auto) 0.80 (0.3-0.8) 10*3/UL Eos # (Auto) 0.07 10*3/UL Baso # (Auto) 0.02 10*3/UL WBC Morphology Comment Normal morphology (NORM) Plt Morphology Comment Normal morphology (NORM) RBC Morph Comment Normal morphology (NORM) ESR (0-15) MM/HR Sodium 138 (135-145) meq/L Potassium 4.5 (3.8-5.2) meq/L Chloride 101 (98-112) meq/L Carbon Dioxide 26 (23-33) meq/L Anion Gap 11 (5-20) BUN 12 (7-22) mg/dL Creatinine 0.8 (0.70-1.50) mg/dL Estimated GFR > 60 (>60 ml/min/1.73m(2)) BUN/Creatinine Ratio 15.00 (6-20) Glucose 96 (78-110) mg/dL Calculated Osmolality 285.0 (267-292) mOsm/kg Lactic Acid 2.1 (0.70-2.10) MMOL/L Calcium 9.8 (8.7-10.7) mg/dL Magnesium 2.2 (1.6-2.4) mg/dL Total Bilirubin 0.4 (0.3-1.2) mg/dL GGT 29 (8-78) IU/L AST 14 L (21-57) IU/L ALT 32 (21-72) IU/L Alkaline Phosphatase 87 (38-126) IU/L C-Reactive Protein (0.0-0.9) mg/dL Total Protein 7.6 (6.1-8.0) g/dL Albumin 4.2 (3.5-4.8) g/dL Globulin 3.4 (2.50-4.10) g/dL Albumin/Globulin Ratio 1.20 L (1.3-2.0) mg/g Amylase 129 H (30-110) U/L Lipase 210 (23-300) IU/L Ur Collection Type Clean catch urine Urine Color Yellow (Y) Urine Clarity Clear (CLEAR) Urine pH 6.5 (5.0-8.5) Ur Specific [place] 1.020 (1.005-1.030) Urine Protein Negative (NEG) mg/dl Urine Glucose (UA) Negative (NEG) mg/dL Urine Ketones Negative (NEG) Urine Occult Blood Negative (NEG) Urine Nitrate Negative (NEG) Urine Bilirubin Negative (NEG) Urine Urobilinogen 0.2 (0.2) EU/dL Ur Leukocyte Esterase Trace (NEG) Urine RBC 1-3 (NONE) /hpf Urine WBC 2-4 (NONE) Ur Squamous Epith Cells Rare (NONE) Ur Renal Epithelial Cell None (NONE) Urine Crystals None Urine Bacteria Rare (NONE) Urine Casts None (NONE) Urine Mucus None (NONE) Urine Trichomonas None (NONE) Urine Yeast None (NONE) Ur Culture Indicated? Culture not set 03/02/17 03/02/17 03/02/17 Range/Units 04:30 04:30 04:30 WBC 9.27 (4.8-10.8) 10^3/uL RBC 3.34 L (4.70-6.10) 10^6/uL Hgb 9.0 L (14.0-18.0) g/dL Hct 29.9 L (42.0-52.0) % MCV 89.5 (80-90) FL MCH 26.9 L (27-31) PG MCHC 30.1 L (33-37) g/dL RDW Std Deviation 46.1 (39-50) fL RDW Coeff of Fidel 14.6 H (11.5-14.5) % Plt Count 547 H (140-350) 10*3/uL MPV 9.6 (7.4-12.2) FL Immature Gran % (Auto) 0.3 (0-5) % Neut % (Auto) 94.6 H (50-80) % Lymph % (Auto) 4.4 L (10-50) % Rice % (Auto) 0.6 L (5-15) % Eos % (Auto) 0 (0-8) % Baso % (Auto) 0.1 (0-1) % Immature Gran # (Auto) 0.03 10*3/UL Neut # (Auto) 8.76 10*3/UL Lymph # (Auto) 0.41 10*3/uL Rice # (Auto) 0.06 L (0.3-0.8) 10*3/UL Eos # (Auto) 0 10*3/UL Baso # (Auto) 0.01 10*3/UL WBC Morphology Comment Normal morphology (NORM) Plt Morphology Comment See comments (NORM) RBC Morph Comment See comments (NORM) ESR 30 H (0-15) MM/HR Sodium 137 (135-145) meq/L Potassium 5.4 H (3.8-5.2) meq/L Chloride 101 (98-112) meq/L Carbon Dioxide 24 (23-33) meq/L Anion Gap 12 (5-20) BUN 13 (7-22) mg/dL Creatinine 0.7 (0.70-1.50) mg/dL Estimated GFR > 60 (>60 ml/min/1.73m(2)) BUN/Creatinine Ratio 18.57 (6-20) Glucose 127 H (78-110) mg/dL Calculated Osmolality 285.0 (267-292) mOsm/kg Lactic Acid (0.70-2.10) MMOL/L Calcium 9.0 (8.7-10.7) mg/dL Magnesium (1.6-2.4) mg/dL Total Bilirubin 0.5 (0.3-1.2) mg/dL GGT (8-78) IU/L AST 15 L (21-57) IU/L ALT 30 (21-72) IU/L Alkaline Phosphatase 68 (38-126) IU/L C-Reactive Protein (0.0-0.9) mg/dL Total Protein 6.4 (6.1-8.0) g/dL Albumin 3.5 (3.5-4.8) g/dL Globulin 3.0 (2.50-4.10) g/dL Albumin/Globulin Ratio 1.10 L (1.3-2.0) mg/g Amylase (30-110) U/L Lipase (23-300) IU/L Ur Collection Type Urine Color (Y) Urine Clarity (CLEAR) Urine pH (5.0-8.5) Ur Specific [place] (1.005-1.030) Urine Protein (NEG) mg/dl Urine Glucose (UA) (NEG) mg/dL Urine Ketones (NEG) Urine Occult Blood (NEG) Urine Nitrate (NEG) Urine Bilirubin (NEG) Urine Urobilinogen (0.2) EU/dL Ur Leukocyte Esterase (NEG) Urine RBC (NONE) /hpf Urine WBC (NONE) Ur Squamous Epith Cells (NONE) Ur Renal Epithelial Cell (NONE) Urine Crystals Urine Bacteria (NONE) Urine Casts (NONE) Urine Mucus (NONE) Urine Trichomonas (NONE) Urine Yeast (NONE) Ur Culture Indicated? 03/02/17 Range/Units 04:30 WBC (4.8-10.8) 10^3/uL RBC (4.70-6.10) 10^6/uL Hgb (14.0-18.0) g/dL Hct (42.0-52.0) % MCV (80-90) FL MCH (27-31) PG MCHC (33-37) g/dL RDW Std Deviation (39-50) fL RDW Coeff of Fidel (11.5-14.5) % Plt Count (140-350) 10*3/uL MPV (7.4-12.2) FL Immature Gran % (Auto) (0-5) % Neut % (Auto) (50-80) % Lymph % (Auto) (10-50) % Rice % (Auto) (5-15) % Eos % (Auto) (0-8) % Baso % (Auto) (0-1) % Immature Gran # (Auto) 10*3/UL Neut # (Auto) 10*3/UL Lymph # (Auto) 10*3/uL Rice # (Auto) (0.3-0.8) 10*3/UL Eos # (Auto) 10*3/UL Baso # (Auto) 10*3/UL WBC Morphology Comment (NORM) Plt Morphology Comment (NORM) RBC Morph Comment (NORM) ESR (0-15) MM/HR Sodium (135-145) meq/L Potassium (3.8-5.2) meq/L Chloride (98-112) meq/L Carbon Dioxide (23-33) meq/L Anion Gap (5-20) BUN (7-22) mg/dL Creatinine (0.70-1.50) mg/dL Estimated GFR (>60 ml/min/1.73m(2)) BUN/Creatinine Ratio (6-20) Glucose (78-110) mg/dL Calculated Osmolality (267-292) mOsm/kg Lactic Acid 1.7 (0.70-2.10) MMOL/L Calcium (8.7-10.7) mg/dL Magnesium (1.6-2.4) mg/dL Total Bilirubin (0.3-1.2) mg/dL GGT (8-78) IU/L AST (21-57) IU/L ALT (21-72) IU/L Alkaline Phosphatase (38-126) IU/L C-Reactive Protein 0.9 (0.0-0.9) mg/dL Total Protein (6.1-8.0) g/dL Albumin (3.5-4.8) g/dL Globulin (2.50-4.10) g/dL Albumin/Globulin Ratio (1.3-2.0) mg/g Amylase (30-110) U/L Lipase (23-300) IU/L Ur Collection Type Urine Color (Y) Urine Clarity (CLEAR) Urine pH (5.0-8.5) Ur Specific [place] (1.005-1.030) Urine Protein (NEG) mg/dl Urine Glucose (UA) (NEG) mg/dL Urine Ketones (NEG) Urine Occult Blood (NEG) Urine Nitrate (NEG) Urine Bilirubin (NEG) Urine Urobilinogen (0.2) EU/dL Ur Leukocyte Esterase (NEG) Urine RBC (NONE) /hpf Urine WBC (NONE) Ur Squamous Epith Cells (NONE) Ur Renal Epithelial Cell (NONE) Urine Crystals Urine Bacteria (NONE) Urine Casts (NONE) Urine Mucus (NONE) Urine Trichomonas (NONE) Urine Yeast (NONE) Ur Culture Indicated? Objective : Exam - General General Appearance: No Acute Distress, Cooperative Additional General Exam Details: Vital Signs (24 hrs) Temp Pulse Pulse Pulse Resp BP BP 03/02/17 16:18 98.2 F 69 18 110/64 03/02/17 11:26 98 F 76 18 113/64 03/02/17 07:03 97.7 F 81 17 118/71 03/02/17 07:00 84 81 03/02/17 04:39 03/02/17 04:14 98.4 F 91 18 121/73 03/01/17 23:47 98.1 F 72 17 111/69 03/01/17 18:26 84 17 03/01/17 18:24 97.5 F 85 106/67 03/01/17 18:20 97.6 F 84 17 123/81 Pulse Ox 03/02/17 16:18 97 03/02/17 11:26 96 03/02/17 07:03 95 03/02/17 07:00 03/02/17 04:39 96 03/02/17 04:14 95 03/01/17 23:47 90 03/01/17 18:26 03/01/17 18:24 97 03/01/17 18:20 - Head Head Exam: Normal Inspection, Normocephalic, Atraumatic - Eye Eye Exam: No Scleral Icterus - ENT ENT Exam: Mucous Membranes Moist - Respiratory Respiratory Exam: Clear to Auscultation - Bilaterally, Breathing Non Labored - Cardiovascular Cardiovascular Exam: RRR, No Murmur, No Clicks, No Gallops, No Rubs, No JVD - GI/Abdominal GI/Abdominal Exam: Normal Bowel Sounds, Non Tender, Non Distended, Soft - Extremities Extremities Exam: No Clubbing Present, No Edema Present, No Cyanosis Present - Neurological Neurological Exam: Alert, Oriented x 3, No Facial Droop, Speech Intact / Clear, Moves All Extremities Equally Assessment and Plan - Patient Problems (1) Small bowel obstruction, partial Current Visit: Yes Status: Acute Priority: High Onset Date: ~03/01/17 (2) Exacerbation of Crohn's disease Current Visit: Yes Status: Acute Code(s): K50.90 - Crohn's disease, unspecified, without complications Qualifiers: Digestive disease complication type: with intestinal obstruction Qualified Code(s): K50.912 - Crohn's disease, unspecified, with intestinal obstruction (3) Anemia Current Visit: Yes Status: Acute Code(s): D64.9 - Anemia, unspecified Qualifiers: Anemia type: other cause Other causes of anemia: chronic disease, other Qualified Code(s): D63.8 - Anemia in other chronic diseases classified elsewhere (4) Tobacco abuse Current Visit: No Status: Acute Code(s): Z72.0 - Tobacco use - Assessment / Plan Additional Assessment/Plan Details: Continue with IV steroids and Flagyl. I think we should give the patient a couple more days of IV medications before trying to taper down and keep him on therapy for at least the next week to 2 weeks. Hoping to get him a referral to the [facility] gastroenterology clinic for further management of Crohn's disease and evaluation of Crohn's disease. I spoke with the clinic today to try and obtain this on an outpatient basis. 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 check labs tomorrow.
[2017-03-03] MEDS: HYDROmorphone 2 MG/1 ML IVP PRN (01:16)
[2017-03-03] MEDS: Sodium Chloride 0.9% 1,000 ML PRIMARY IV SCH ×2 (03:59→13:44)
[2017-03-03] MEDS: metroNIDAZOLE 500mg (Premix) 500 MG/100 ML BAG IV SCH ×2 (03:59→11:43)
[2017-03-03 04:18] LABS: BASOPHILS # (AUTO) 0 10*3/UL; BASOPHILS % (AUTO) 0 % (0-1); EOSINOPHILS # (AUTO) 0 10*3/UL; EOSINOPHILS % (AUTO) 0 % (0-8); Hematocrit [HCT] 28.4 % (42.0-52.0); Hemoglobin [HGB] 8.4 g/dL (14.0-18.0); LYMPHOCYTES # (AUTO) 0.48 10*3/uL; MEAN CORPUSCULAR HEMOGLOBIN 26.3 PG (27-31); MEAN CORPUSCULAR HGB CONC 29.6 g/dL (33-37); MEAN PLATELET VOLUME 9.6 FL (7.4-12.2); MONOCYTES # (AUTO) 0.29 10*3/UL (0.3-0.8); MONOCYTES % (AUTO) 3.3 % (5-15); NEUTROPHILS # (AUTO) 7.94 10*3/UL; NEUTROPHILS % (AUTO) 91.1 % (50-80); RED BLOOD COUNT 3.19 10^6/uL (4.70-6.10)
[2017-03-03 04:25] LABS: PLATELET MORPHOLOGY COMMENT NORMAL MORPHOLOGY (NORM); RBC MORPHOLOGY COMMENT NORMAL MORPHOLOGY (NORM); WBC MORPHOLOGY COMMENT NORMAL MORPHOLOGY (NORM)
[2017-03-03 04:30] LABS: BLOOD UREA NITROGEN 14 mg/dL (7-22)
--- NOTE | 2017-03-03 08:48 | PDOC(PROG) ---
Date and Time of Service: 03/03/2017 8:40 AM Interval History: Feels much better without the NG tube in place. No nausea or vomiting. Reports his pain is minimal if any. Had a large bowel movement today. He is passing gas. Objective : Data - Labs CBC and BMP: 03/03/17 04:00 03/03/17 04:00 - Imaging Imaging Details: There is gas and stool throughout the colon. There are couple of generous loops of small bowel. No longer appears obstructed. - Vital Signs Vital Signs and I&O: Vital Signs - Last Taken Temperature 98.1 F 03/03/17 03:52 Pulse Rate 80 03/03/17 07:00 Respiratory Rate 18 03/03/17 03:52 Blood Pressure 112/55 03/03/17 03:52 Pulse Ox 92 03/03/17 03:52 Intake and Output (24hr x 4 totals) 03/01/17 03/02/17 03/03/17 03/04/17 05:59 05:59 05:59 05:59 Intake Total 3287 / 4287 3462 / 3462 Output Total 2175 / 2175 3200 / 3200 Balance 1112 / 2112 262 / 262 Objective : Exam - General General Appearance: No Acute Distress, Cooperative - Respiratory Respiratory Exam: Clear to Auscultation - Bilaterally, Breathing Non Labored - Cardiovascular Cardiovascular Exam: RRR, No Murmur - GI/Abdominal GI/Abdominal Exam: Normal Bowel Sounds, Non Tender (Essentially nontender. Minimal with deep palpation.), Non Distended, Soft - Neurological Neurological Exam: Alert, Oriented x 3 - Psychiatric Psychiatric Exam: Normal Affect, Normal Mood Assessment and Plan - Patient Problems (1) Small bowel obstruction, partial Current Visit: Yes Status: Acute Priority: High Onset Date: ~03/01/17 Comment: Seems to be resolved. Probably secondary to Crohn's exacerbation. We' ll start him on clear liquid diet. His diet can be advanced as tolerated. I will sign off the case at this time. Please call if I can be of further help. Further management per the hospitalist service. (2) Crohns disease Current Visit: Yes Status: Chronic Priority: Medium Onset Date: Unknown Comment: The plan is to have him see gastroenterology. I have asked him to see me in the office in 2 weeks after he has seen the travel rn or. I think we need to discuss resection of his terminal ileum as this is causing continued problems. We will repair his abdominal wall hernias at that time. Code(s): K50.90 - Crohn's disease, unspecified, without complications (3) Abdominal pain Current Visit: Yes Status: Acute Code(s): R10.9 - Unspecified abdominal pain
[2017-03-03] MEDS: methylPREDNISolone 125 MG/2 ML VIAL IVP SCH (09:11)
[2017-03-03] MEDS: predniSONE Tab 10 MG TAB PO SCH (09:12)
[2017-03-03] MEDS: ACIDOPH PARACASEI B LACTIS PO SCH (09:12)
[2017-03-03] MEDS: Pantoprazole Inj 40 MG in Normal Saline Flush 10 ML IVP SCH (09:12)
--- NOTE | 2017-03-03 11:03 | DI ---
XR ABDOMEN KUB UPRIGHT,03/03/2017 7:00 AM: Clinical History: Partial small bowel obstruction. Previous Exam: March 02, 2017 Findings: 2 views of the abdomen are obtained upright and supine, and demonstrate gas probably within the colon . There are still a few air-fluid levels which are essentially unchanged when Prior exam. There is no subdiaphragmatic free air. Postsurgical changes are noted. No pathologic calcifications a re noted. There are stable deformities of the lateral processes of the lumbar spine. Impression: No significant change from prior.
[2017-03-03 12:25] VITALS: BP 117/59; RESP 18; TEMP 97.2; O2SAT 97
--- NOTE | 2017-03-03 13:50 | DCSUMMARY ---
Hospitalization Summary Hospital Course: Final Discharge Diagnosis: Current Visit Problems Problem Status Onset Code Abdominal pain Acute R10.9 Crohns disease Chronic Unknown K50.90 Colitis Acute Small bowel obstruction, partial Acute ~03/01/17 Exacerbation of Crohn's disease Acute K50.90 Anemia Acute D64.9 Diagnostic Data, Laboratory Data, and Procedures of Signifigance: Laboratory Results 03/01/17 03/01/17 03/01/17 Range/Units 14:40 14:47 14:47 WBC 16.87 H (4.8-10.8) 10^3/uL RBC 3.95 L (4.70-6.10) 10^6/uL Hgb 10.8 L (14.0-18.0) g/dL Hct 35.3 L (42.0-52.0) % MCV 89.4 (80-90) FL MCH 27.3 (27-31) PG MCHC 30.6 L (33-37) g/dL RDW Std Deviation 47.0 (39-50) fL RDW Coeff of Fidel 14.8 H (11.5-14.5) % Plt Count 672 H (140-350) 10*3/uL MPV 9.4 (7.4-12.2) FL Immature Gran % (Auto) 0.3 (0-5) % Neut % (Auto) 89.5 H (50-80) % Lymph % (Auto) 5.0 L (10-50) % [place] % (Auto) 4.7 L (5-15) % Eos % (Auto) 0.4 (0-8) % Baso % (Auto) 0.1 (0-1) % Immature Gran # (Auto) 0.05 10*3/UL Neut # (Auto) 15.08 10*3/UL Lymph # (Auto) 0.85 10*3/uL [place] # (Auto) 0.80 (0.3-0.8) 10*3/UL Eos # (Auto) 0.07 10*3/UL Baso # (Auto) 0.02 10*3/UL WBC Morphology Comment Normal morphology (NORM) Plt Morphology Comment Normal morphology (NORM) RBC Morph Comment Normal morphology (NORM) ESR (0-15) MM/HR Sodium 138 (135-145) meq/L Potassium 4.5 (3.8-5.2) meq/L Chloride 101 (98-112) meq/L Carbon Dioxide 26 (23-33) meq/L Anion Gap 11 (5-20) BUN 12 (7-22) mg/dL Creatinine 0.8 (0.70-1.50) mg/dL Estimated GFR > 60 (>60 ml/min/1.73m(2)) BUN/Creatinine Ratio 15.00 (6-20) Glucose 96 (78-110) mg/dL Calculated Osmolality 285.0 (267-292) mOsm/kg Lactic Acid 2.1 (0.70-2.10) MMOL/L Calcium 9.8 (8.7-10.7) mg/dL Magnesium 2.2 (1.6-2.4) mg/dL Total Bilirubin 0.4 (0.3-1.2) mg/dL GGT 29 (8-78) IU/L AST 14 L (21-57) IU/L ALT 32 (21-72) IU/L Alkaline Phosphatase 87 (38-126) IU/L C-Reactive Protein (0.0-0.9) mg/dL Total Protein 7.6 (6.1-8.0) g/dL Albumin 4.2 (3.5-4.8) g/dL Globulin 3.4 (2.50-4.10) g/dL Albumin/Globulin Ratio 1.20 L (1.3-2.0) mg/g Amylase 129 H (30-110) U/L Lipase 210 (23-300) IU/L Ur Collection Type Clean catch urine Urine Color Yellow (Y) Urine Clarity Clear (CLEAR) Urine pH 6.5 (5.0-8.5) Ur Specific [place] 1.020 (1.005-1.030) Urine Protein Negative (NEG) mg/dl Urine Glucose (UA) Negative (NEG) mg/dL Urine Ketones Negative (NEG) Urine Occult Blood Negative (NEG) Urine Nitrate Negative (NEG) Urine Bilirubin Negative (NEG) Urine Urobilinogen 0.2 (0.2) EU/dL Ur Leukocyte Esterase Trace (NEG) Urine RBC 1-3 (NONE) /hpf Urine WBC 2-4 (NONE) Ur Squamous Epith Cells Rare (NONE) Ur Renal Epithelial Cell None (NONE) Urine Crystals None Urine Bacteria Rare (NONE) Urine Casts None (NONE) Urine Mucus None (NONE) Urine Trichomonas None (NONE) Urine Yeast None (NONE) Ur Culture Indicated? Culture not set 03/02/17 03/02/17 03/02/17 Range/Units 04:30 04:30 04:30 WBC 9.27 (4.8-10.8) 10^3/uL RBC 3.34 L (4.70-6.10) 10^6/uL Hgb 9.0 L (14.0-18.0) g/dL Hct 29.9 L (42.0-52.0) % MCV 89.5 (80-90) FL MCH 26.9 L (27-31) PG MCHC 30.1 L (33-37) g/dL RDW Std Deviation 46.1 (39-50) fL RDW Coeff of Fidel 14.6 H (11.5-14.5) % Plt Count 547 H (140-350) 10*3/uL MPV 9.6 (7.4-12.2) FL Immature Gran % (Auto) 0.3 (0-5) % Neut % (Auto) 94.6 H (50-80) % Lymph % (Auto) 4.4 L (10-50) % [place] % (Auto) 0.6 L (5-15) % Eos % (Auto) 0 (0-8) % Baso % (Auto) 0.1 (0-1) % Immature Gran # (Auto) 0.03 10*3/UL Neut # (Auto) 8.76 10*3/UL Lymph # (Auto) 0.41 10*3/uL [place] # (Auto) 0.06 L (0.3-0.8) 10*3/UL Eos # (Auto) 0 10*3/UL Baso # (Auto) 0.01 10*3/UL WBC Morphology Comment Normal morphology (NORM) Plt Morphology Comment See comments (NORM) RBC Morph Comment See comments (NORM) ESR 30 H (0-15) MM/HR Sodium 137 (135-145) meq/L Potassium 5.4 H (3.8-5.2) meq/L Chloride 101 (98-112) meq/L Carbon Dioxide 24 (23-33) meq/L Anion Gap 12 (5-20) BUN 13 (7-22) mg/dL Creatinine 0.7 (0.70-1.50) mg/dL Estimated GFR > 60 (>60 ml/min/1.73m(2)) BUN/Creatinine Ratio 18.57 (6-20) Glucose 127 H (78-110) mg/dL Calculated Osmolality 285.0 (267-292) mOsm/kg Lactic Acid (0.70-2.10) MMOL/L Calcium 9.0 (8.7-10.7) mg/dL Magnesium (1.6-2.4) mg/dL Total Bilirubin 0.5 (0.3-1.2) mg/dL GGT (8-78) IU/L AST 15 L (21-57) IU/L ALT 30 (21-72) IU/L Alkaline Phosphatase 68 (38-126) IU/L C-Reactive Protein (0.0-0.9) mg/dL Total Protein 6.4 (6.1-8.0) g/dL Albumin 3.5 (3.5-4.8) g/dL Globulin 3.0 (2.50-4.10) g/dL Albumin/Globulin Ratio 1.10 L (1.3-2.0) mg/g Amylase (30-110) U/L Lipase (23-300) IU/L Ur Collection Type Urine Color (Y) Urine Clarity (CLEAR) Urine pH (5.0-8.5) Ur Specific [place] (1.005-1.030) Urine Protein (NEG) mg/dl Urine Glucose (UA) (NEG) mg/dL Urine Ketones (NEG) Urine Occult Blood (NEG) Urine Nitrate (NEG) Urine Bilirubin (NEG) Urine Urobilinogen (0.2) EU/dL Ur Leukocyte Esterase (NEG) Urine RBC (NONE) /hpf Urine WBC (NONE) Ur Squamous Epith Cells (NONE) Ur Renal Epithelial Cell (NONE) Urine Crystals Urine Bacteria (NONE) Urine Casts (NONE) Urine Mucus (NONE) Urine Trichomonas (NONE) Urine Yeast (NONE) Ur Culture Indicated? 03/02/17 03/03/17 03/03/17 Range/Units 04:30 04:00 04:00 WBC 8.72 (4.8-10.8) 10^3/uL RBC 3.19 L (4.70-6.10) 10^6/uL Hgb 8.4 L (14.0-18.0) g/dL Hct 28.4 L (42.0-52.0) % MCV 89.0 (80-90) FL MCH 26.3 L (27-31) PG MCHC 29.6 L (33-37) g/dL RDW Std Deviation 45.1 (39-50) fL RDW Coeff of Fidel 14.4 (11.5-14.5) % Plt Count 517 H (140-350) 10*3/uL MPV 9.6 (7.4-12.2) FL Immature Gran % (Auto) 0.1 (0-5) % Neut % (Auto) 91.1 H (50-80) % Lymph % (Auto) 5.5 L (10-50) % [place] % (Auto) 3.3 L (5-15) % Eos % (Auto) 0 (0-8) % Baso % (Auto) 0 (0-1) % Immature Gran # (Auto) 0.01 10*3/UL Neut # (Auto) 7.94 10*3/UL Lymph # (Auto) 0.48 10*3/uL [place] # (Auto) 0.29 L (0.3-0.8) 10*3/UL Eos # (Auto) 0 10*3/UL Baso # (Auto) 0 10*3/UL WBC Morphology Comment Normal morphology (NORM) Plt Morphology Comment Normal morphology (NORM) RBC Morph Comment Normal morphology (NORM) ESR (0-15) MM/HR Sodium 137 (135-145) meq/L Potassium 4.4 (3.8-5.2) meq/L Chloride 102 (98-112) meq/L Carbon Dioxide 25 (23-33) meq/L Anion Gap 10 (5-20) BUN 14 (7-22) mg/dL Creatinine 0.8 (0.70-1.50) mg/dL Estimated GFR > 60 (>60 ml/min/1.73m(2)) BUN/Creatinine Ratio 17.50 (6-20) Glucose 128 H (78-110) mg/dL Calculated Osmolality 286.0 (267-292) mOsm/kg Lactic Acid 1.7 (0.70-2.10) MMOL/L Calcium 9.0 (8.7-10.7) mg/dL Magnesium (1.6-2.4) mg/dL Total Bilirubin (0.3-1.2) mg/dL GGT (8-78) IU/L AST (21-57) IU/L ALT (21-72) IU/L Alkaline Phosphatase (38-126) IU/L C-Reactive Protein 0.9 (0.0-0.9) mg/dL Total Protein (6.1-8.0) g/dL Albumin (3.5-4.8) g/dL Globulin (2.50-4.10) g/dL Albumin/Globulin Ratio (1.3-2.0) mg/g Amylase (30-110) U/L Lipase (23-300) IU/L Ur Collection Type Urine Color (Y) Urine Clarity (CLEAR) Urine pH (5.0-8.5) Ur Specific [place] (1.005-1.030) Urine Protein (NEG) mg/dl Urine Glucose (UA) (NEG) mg/dL Urine Ketones (NEG) Urine Occult Blood (NEG) Urine Nitrate (NEG) Urine Bilirubin (NEG) Urine Urobilinogen (0.2) EU/dL Ur Leukocyte Esterase (NEG) Urine RBC (NONE) /hpf Urine WBC (NONE) Ur Squamous Epith Cells (NONE) Ur Renal Epithelial Cell (NONE) Urine Crystals Urine Bacteria (NONE) Urine Casts (NONE) Urine Mucus (NONE) Urine Trichomonas (NONE) Urine Yeast (NONE) Ur Culture Indicated? History and Physical pertinent to Admission: Past Medical History Medical History: 1. Crohn's disease, very difficult to control currently with a CDA I of 620. Has not done well with Biologics to this point including Remicade which caused drug-induced lupus. 2. GERD. 3. 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 Surgical History: 1. Two abdominal surgeries for Crohn's disease including resection with ileostomy and subsequent reversal. The patient also had a ureteral injury at the time of the surgery that required stent placement on the right. 2. Left arm surgery/carpal tunnel with tendon releases and repair. 3. Multiple perianal surgeries for Crohn's disease. 4. Appendectomy. 5. Multiple colonoscopies. 6. EGD, negative. Pertinent Family History: Significant for Crohn's disease in one of his aunts. Past Social History: smokes 2-3 cigarettes daily, , has 2 children, and since December has gone back to work. Tobacco Use: Current Some Day Smoker (2-3 cigarettes.) Course of Hospitalization: Is a very nice 36-year-old gentleman with past medical history of Crohn's disease he has had multiple exacerbations, and bowel obstructions and periodic chills. Was admitted the for abdominal cramping recently was admitted for Crohn 's disease exacerbation and placed on 6-MP and Entocort also on Flagyl and was seen in [place] by his check out cashier in the hospital while admitted he had bloody diarrhea and high fevers and shortly after he was discharged he started having he has been on different medications for his Crohn's disease control specifically Entocort, Remicade but developed induced lupus clinic this on stool cultures in September 2014 he had Salmonella group C exceeds per was notified and is aware ultimately need to be filled up by them patient is a carrier for this and they do not recommend that the present time until they see he did have surgery 12 years ago for his Crohn's with an CT scan showed high-grade small bowel obstruction with a clear transition point this was discussed with surgery and would Dr. Leigh and surgery decided to treat this medically with NG tube antibiotics and steroids patient did improve with resolution of obstruction patient is having bowel movements and passing gas and his pain is clearly resolved. They wanted second opinions and are not interested in going back to gastroenterologyasked me to help them out to make an appointment with GI in [place] I did call Dr. Sullivan at [facility] and his appointment was for his further evaluation and treatment of his Crohn's. He should and his are very happy about this clinic appointment that I was able to procure 4 to be discharged in stable and improved condition with a bland diet. He will also be put on prednisone 60 mg a day until he sees his check out cashier On the date of discharge, the patient was examined: Gen.: No acute distress, alert, nontoxic Heart: Regular rate and rhythm, no murmurs, clicks, gallops, or rubs Lungs: Clear to auscultation bilaterally, breathing is nonlabored Abdomen/GI: Normal tones on auscultation, soft, nontender, nondistended Musculoskeletal/extremities: No clubbing, cyanosis, or edema Vitals reviewed and are listed below Assessment and Plan: 1. As per discharge assessments above 2. Disposition: Home 3. Condition on discharge, stable and improved. 4. Diet: regular diet 5. Activities: resume normal activities 6. Follow-Up: 1. PCP 2. Follow-up in April with the Dr. Sullivan gastroenterology 7. Medications at the Time of Discharge: Home Medications Medication Instructions Recorded Confirmed Type Budesonide [Budesonide EC] 9 mg PO DAILY cap 09/16/16 03/01/17 History Acetaminophen [Tylenol] 1,000 mg PO Q6H PRN tab 02/15/17 03/01/17 Rx Potassium Chloride [Klor-Con] 10 meq PO DAILY #3 tab 02/15/17 03/01/17 Rx Prednisone 10 mg PO DAILY #8 tab 02/15/17 03/01/17 Rx metroNIDAZOLE Tab [Flagyl Tab] 500 mg PO Q8H #9 tab 02/15/17 03/01/17 Rx Azathioprine [Imuran] 50 mg PO DAILY 03/01/17 03/01/17 History L.acidoph,Paracasei, B.lactis 1 ea PO DAILY 03/01/17 03/01/17 History [Probiotic] Tramadol HCl 50 - 100 mg PO Q6H PRN PRN 03/01/17 03/01/17 History 3 Generic Name Dose Route Start Last Admin Trade Name Freq PRN Reason Stop Dose Admin Acetaminophen 650 mg 03/01/17 18:21 Tylenol PO Q6H PRN Pain or Fever Hydromorphone HCl 2 mg 03/01/17 21:05 03/03/17 01:16 Dilaudid Inj IVP 2 mg Q2H PRN Administration Pain Sodium Chloride 25 mls @ 200 mls/hr 03/01/17 18:21 Normal Saline 0.9% IV .Post Infusion PRN No Primary IV for Flush ONLY Metronidazole 500 mg in 100 mls @ 100 mls/hr 03/01/17 20:00 03/03/17 11:43 Flagyl 500mg (Premix) IV 100 mls/hr Q8H MISAEL Administration Pantoprazole Sodium 40 mg/ 10 mls @ 5 mls/min 03/02/17 10:00 03/03/17 09:12 Sodium Chloride IVP 5 mls/min DAILY MISAEL Administration Lidocaine HCl 0.5 ml 03/01/17 18:21 Lidocaine Buffered Inj SUBD ONCE PRN IV Starts Methylprednisolone Sodium Succinate 125 mg 03/02/17 09:00 03/03/17 09:11 Solu-Medrol Inj IVP 125 mg BID MISAEL Administration Non-Formulary Medication 1 ea 03/02/17 09:00 03/03/17 09:12 L.Acidoph,Paracasei, B.Lactis [Probiotic] PO Not Given DAILY MISAEL Ondansetron HCl 4 mg 03/01/17 18:21 Zofran Inj IVP Q4H PRN NAUSEA / VOMITING Phenol 3 spray 03/02/17 00:59 03/02/17 13:34 Chloraseptic [place] PO 3 spray Q2H PRN Administration Sore Throat Prednisone 10 mg 03/02/17 09:00 03/03/17 09:12 Deltasone Tab PO Not Given DAILY MISAEL Prochlorperazine Edisylate 5 mg 03/01/17 18:21 Compazine Inj IVP Q6H PRN NAUSEA / VOMITING Sodium Chloride 5 - 20 ml 03/01/17 18:21 Saline Flush IVP BID PRN Flush 8. Time, care, counseling and coordination of care for this discharge is greater than 30 minutes. Exam - Vitals Vital Signs: Vital Signs Temperature 97.2 F Temperature Source Temporal Artery Scan Pulse Rate [Apical] 80 Pulse Rate [Pulse Oximeter] 69 Pulse Rate 85 Respiratory Rate 18 Blood Pressure [Left Arm] 117/59 Blood Pressure 106/67 Pulse Ox 97 Oxygen Flow Rate 0.5 Oxygen Delivery Method Room Air Height 5 ft 11 in Weight 196 lb 12.8 oz
== END 2017-03-03 15:48 | disposition home or self-care (01) | DRG 386 ==
LOC: ER 14:31 → MED/SURG 18:00
PROVIDERS: ADMIT Family Medicine; ATTEND Family Medicine

== ENCOUNTER 2017-05-04 14:38 | Inpatient (IN) ==
[2017-05-04] MEDS ORDERED: ONDANSETRON 4 MG/2 ML VIAL IVP ONE (15:23)
[2017-05-04] MEDS ORDERED: NORMAL SALINE 10 ML SYRINGE FLUSH IVP PRN (15:23)
[2017-05-04] MEDS ORDERED: Sodium Chloride 0.9% 1,000 ML PRIMARY IV ONE (15:23)
[2017-05-04] MEDS ORDERED: Pantoprazole Inj 40 MG in Normal Saline Flush 10 ML IVP ONE (15:23)
[2017-05-04] MEDS ORDERED: MORPHINE SULFATE 4 MG/1 ML IVP ONE (15:23)
[2017-05-04] MEDS ORDERED: methylPREDNISolone Succ Inj 125 MG in Sodium Chloride 0.9% 100 ML IV ONE (15:28)
[2017-05-04 15:31] LABS: BASOPHILS % (AUTO) 0.2 % (0-1); EOSINOPHILS % (AUTO) 0.7 % (0-8); Hematocrit [HCT] 34.3 % (42.0-52.0); MEAN CORPUSCULAR HEMOGLOBIN 24.9 PG (27-31); MEAN CORPUSCULAR HGB CONC 32.1 g/dL (33-37); MEAN CORPUSCULAR VOLUME 78 FL (80-90); MEAN PLATELET VOLUME 7.4 FL (7.4-12.2); MONOCYTES % (AUTO) 3.1 % (5-15); NEUTROPHILS % (AUTO) 89.7 % (50-80); RED BLOOD COUNT 4.42 10^6/uL (4.70-6.10)
[2017-05-04 15:32] LABS: BASOPHILS # (AUTO) 0.02 10*3/UL; EOSINOPHILS # (AUTO) 0.05 10*3/UL; LYMPHOCYTES # (AUTO) 0.49 10*3/uL; MONOCYTES # (AUTO) 0.24 10*3/UL (0.3-0.8); NEUTROPHILS # (AUTO) 7.03 10*3/UL; PLATELET MORPHOLOGY COMMENT NORMAL MORPHOLOGY (NORM); RBC MORPHOLOGY COMMENT NORMAL MORPHOLOGY (NORM); WBC MORPHOLOGY COMMENT NORMAL MORPHOLOGY (NORM)
[2017-05-04 15:37] LABS: BLOOD UREA NITROGEN 11 mg/dL (7-22); BUN/CREATININE RATIO 12.22 (6-20); LIPASE 98 IU/L (23-300); SERUM ALBUMIN 4.2 g/dL (3.5-4.8)
[2017-05-04] MEDS ORDERED: methylPREDNISolone 125 MG/2 ML VIAL ONE (16:02)
[2017-05-04 16:08] LABS: BILIRUBIN,URINE NEGATIVE (NEG); CLARITY,URINE CLEAR (CLEAR); COLOR,URINE YELLOW (Y); GLUCOSE, URINE (UA) NEGATIVE (NEG); NITRATE,URINE NEGATIVE (NEG); OCCULT BLOOD,URINE NEGATIVE (NEG); PROTEIN,URINE NEGATIVE (NEG); UROBILINOGEN,URINE 0.2 EU/dL (0.2)
[2017-05-04] MEDS ORDERED: methylPREDNISolone 125 MG/2 ML VIAL IVP ONE ×2 (16:16→22:01)
[2017-05-04 16:21] LABS: URINE SAMPLE TYPE CLEAN CATCH URINE
[2017-05-04] MEDS ORDERED: HYDROmorphone 2 MG/1 ML IVP ONE (17:26)
--- NOTE | 2017-05-04 18:20 | DI ---
CT ABDOMEN SCAN WITH IV CONTRAST, 05/04/2017 3:25 PM : Clinical History: Abdominal pain. Previous Exam: 03/22/2017. Scans are performed from the lower lung bases through the liver and kidneys with IV contrast. 75 ml o f Isovue 300 was injected IV. No oral or rectal contrast was ordered. The lung bases are clear. The liver is normal. The gallbladder is grossly normal. There is no abnorma lity of the spleen, pancreas, and adrenal glands. Both kidneys are normal in size, shape, position an d contour. There is no hydronephrosis or hydroureter. No renal or ureteral calculi are present. There are no abnormal retrocrural or periaortic nodes. No ascites is present. READING: Normal CT abdomen scan. CT PELVIS SCAN WITH IV CONTRAST, 05/04/2017 3:25 PM: Clinical History: See above. Previous Exam: 03/22/2017. Scans are performed from just superior to the umbilicus to the symphysis pubis with IV contrast. This is the same bolus of contrast used for the CT scans of the abdomen. Scans through the lower abdomen and pelvis show no masses or abnormal fluid collections. There is no adenopathy. The patient is status post right colectomy with an apparent end to side anastomosis. Ther e is mucosal thickening with periserosal inflammatory change in the midportion of the descending colo n for a length of approximately 10-12 cm. This was the same segment of descending colon involved at t he time of the previous CT scan. There is a loop of small bowel just proximal to the anastomosis with the colon and this loop shows subtle periserosal inflammatory/infiltrative change with thickening of the bowel wall and increased enhancement consistent with acute inflammatory bowel disease. There is an umbilical hernia that contains a loop of small bowel. There is also a right lower quadrant ileosto my site through which a loop of small bowel has herniated. There is no evidence of a bowel obstructio n. READIN. The midportion of the descending colon shows inflammatory/infiltrative change in the periserosal tissues as well as thickening of the bowel wall similar to the previous study from 03/22/2017. The pat ient is status post right colectomy and this patient probably has Crohn's disease. There is a segment of distal small bowel proximal to the anastomosis with the colon that also is suspicious for demonst rating inflammatory bowel changes. 2. There is an umbilical hernia and a hernia probably at the previous ileostomy site in the right lo wer quadrant. Both of these abdominal wall defects containing loops of small bowel without evidence o f shrunken.
[2017-05-04] MEDS ORDERED: DOCUSATE 100 MG CAPSULE PO PRN (20:04)
[2017-05-04] MEDS ORDERED: ONDANSETRON 4 MG/2 ML VIAL IVP PRN (20:04)
[2017-05-04] MEDS ORDERED: CALCIUM CARBONATE 500 MG (TUMS) CHEWABLE TABLET PO PRN (20:04)
[2017-05-04] MEDS ORDERED: ACETAMINOPHEN 325 MG TABLET PO PRN (20:04)
[2017-05-04] MEDS ORDERED: LIDOCAINE W/ SODIUM BICARB 0.5 ML SYR SUBD PRN (20:04)
[2017-05-04] MEDS: HYDROmorphone 2 MG/1 ML IVP PRN (20:30)
--- NOTE | 2017-05-04 21:48 | PDOC ---
HPI - History of Present Illness Date of Service: 05/04/17 Time of Service: 21:45 Chief Complaint: Abdominal pain History of Present Illness: Kostas is a very well-known 36-year-old patient with Crohn's disease with recurrent exacerbations and history of valve structures with what may be colon strictures by CT scan. He comes in today having a week of increased diarrhea and abdominal pain that does not seem to be responding to his normal regimen for Crohn's disease. He's not had any fevers. He denies any blood in the stool , but complains of increased diarrhea. Pain medications here in the emergency room and on the floor have helped him. Since he was last here in the hospital, he has had evaluation by the gastroenterology services in [facility] that did not seem to offer him much more in terms of medical management. He is still interested in us trying stelara, but I am not sure he would be a candidate for given his Remicade induced lupus condition in the past. He has not tolerated Imuran therapy. Thus far, he has not had a lot of nausea and vomiting. He still states he is thirsty. The patient has had salmonella colonization, but I' m not aware as to whether or not he's had therapy for this. Past Medical History Medical History: 1. Crohn's disease, very difficult to control. Has not done well with Biologics to this point including Remicade which caused drug-induced lupus. 2. GERD. 3. 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 Surgical History: 1. Two abdominal surgeries for Crohn's disease including resection with ileostomy and subsequent reversal. The patient also had a ureteral injury at the time of the surgery that required stent placement on the right. 2. Left arm surgery/carpal tunnel with tendon releases and repair. 3. Multiple perianal surgeries for Crohn's disease. 4. Appendectomy. 5. Multiple colonoscopies. 6. EGD, negative. Pertinent Family History: Significant for Crohn's disease in one of his aunts. Past Social History: smokes 2-3 cigarettes daily, , has 2 children. Does not drink alcohol. Tobacco Use: Current Every Day Smoker Do you dip or chew tobacco: No In the Past 12 Months, Have Used or Abuse Any of the Following Substance: None Alcohol Use: None Medication / Allergies Home Medications: Home Medications Medication Instructions Recorded Confirmed Type Ondansetron Odt [Zofran Odt] 8 mg PO Q6H PRN #10 tab.rapdis 03/22/17 05/04/17 Rx oxyCODONE/APAP 10/325 Tab 1 ea PO Q4H PRN #10 tab 03/22/17 05/04/17 Rx [Percocet 10/325 Tab] predniSONE Tab [Deltasone Tab] 30 mg PO DAILY 03/22/17 05/04/17 History Allergies/Adverse Reactions: Allergies 3 Allergy/AdvReac Type Severity Reaction Status Date / Time adalimumab [From Humira] Allergy RASH Verified 05/04/17 20:59 meperidine HCl [From Demerol] AdvReac Intermediate VOMITING Verified 05/04/17 20 :59 infliximab [From Remicade] AdvReac NOT Verified 05/04/17 20:59 APPLICABLE Review of Systems - Review of Systems All Systems: Reviewed & No Additional Complaints Except as Stated (I did a 12 point review systems, and it was negative except for that discussed in history present illness. And that noted below.) - Musculoskeletal Musculoskeletal: REPORTS: Other (Gets occasional joint pains, but not as bad as in the past.) Exam - Vitals Vital Signs: Vital Signs Temperature 97.2 F Temperature Source Temporal Artery Scan Pulse Rate [Pulse Oximeter 76 Right] Respiratory Rate 20 Blood Pressure [Left Arm] 153/93 Pulse Ox 96 Oxygen Delivery Method Room Air Height 6 ft 2 in Weight 210 lb 3.2 oz - General General Appearance: No Acute Distress, Cooperative - Head Head Exam: Normal Inspection, Normocephalic, Atraumatic - Eye Eye Exam: POSITIVE: No Scleral Icterus - ENT ENT Exam: POSITIVE: Mucous Membranes Moist - Neck Neck Exam: Normal Inspection - Respiratory Respiratory Exam: POSITIVE: Clear to Auscultation - Bilaterally, Breathing Non Labored, Normal to Percussion and Palpation - Cardiovascular Cardiovascular Exam: POSITIVE: RRR, No Murmur, No Clicks, No Gallops, No Rubs, No JVD - GI/Abdominal GI/Abdominal Exam: POSITIVE: Normal Bowel Sounds, Non Tender, Non Distended, Soft (Maybe slightly hypoactive.) - Rectal Rectal Exam: POSITIVE: Deferred - External Exam: POSITIVE: Deferred Exam: POSITIVE: Deferred - Extremities Extremities Exam: POSITIVE: No Clubbing Present, No Edema Present, No Cyanosis Present - Back Back Exam: POSITIVE: No CVA Tenderness - Neurological Neurological Exam: POSITIVE: Alert, Oriented x 3, No Facial Droop, Speech Intact / Clear, Moves All Extremities Equally - Psychiatric Psychiatric Exam: POSITIVE: Normal Affect, Normal Mood Results - Labs CBC and BMP: 05/04/17 15:28 05/04/17 15:28 Additional Lab Results: 05/04/17 15:28 Calcium 9.5 Total Bilirubin 0.2 L AST 18 L ALT 28 Alkaline Phosphatase 82 Total Protein 7.7 Albumin 4.2 Amylase 62 Lipase 98 - Imaging Status: Image Reviewed by Me, Report Reviewed by Me (As per the radiologist,1. The midportion of the descending colon shows inflammatory/infiltrative change in the periserosal tissues as well as thickening of the bowel wall similar to the previous study from 03/22/2017. The patient is status post right colectomy and this patient probably has Crohn's disease. There is a segment of distal small bowel proximal to the anastomosis with the colon that also is suspicious for demonstrating inflammatory bowel changes. 2. There is an umbilical hernia and a hernia probably at the previous ileostomy site in the right lower quadrant. Both of these abdominal wall defects containing loops of small bowel without evidence of shrunken.) Assessment and Plan - Patient Problems (1) Exacerbation of Crohn's disease Current Visit: Yes Status: Acute Code(s): K50.90 - Crohn's disease, unspecified, without complications Qualifiers: Digestive disease complication type: without complication Qualified Code(s) : K50.90 - Crohn's disease, unspecified, without complications (2) Tobacco abuse Current Visit: Yes Status: Acute Code(s): Z72.0 - Tobacco use (3) Diarrhea Current Visit: Yes Status: Acute Code(s): R19.7 - Diarrhea, unspecified (4) Salmonella Current Visit: Yes Status: Chronic Code(s): A02.9 - Salmonella infection, unspecified - Assessment / Plan Additional Assessment/Plan Details: At this time, and do not go ahead and start Flagyl, start steroids, give fluids and allow patient clear liquids for now. I'll discuss CT scan with surgery tomorrow. I don't think there is an acute need for surgery but it makes me wonder if this chronic area of inflammation will need to be operated on eventually. Not sure what we'll do in terms of controller medications as the patient has had lupus induced from Remicade May need to discuss with GI for other options for potential infusions we can do here help better control his Crohn's disease. Check labs tomorrow. Stool studies thus far negative for C. difficile, await culture results. Positive for salmonella, I really do think we need to work on reducing a carrier state which may be putting the patient at risk for recurrent flares.
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
[2017-05-04] MEDS: NORMAL SALINE 10 ML SYRINGE FLUSH IVP PRN (23:34)
[2017-05-04] MEDS: metroNIDAZOLE 500mg (Premix) 500 MG/100 ML BAG IV SCH (23:34)
[2017-05-04] MEDS: D5-1/2NS + 20mEq KCL 1,000 ML PRIMARY IV SCH (23:34)
[2017-05-05] MEDS: HYDROmorphone 2 MG/1 ML IVP PRN ×5 (00:34→21:32)
[2017-05-05 06:13] LABS: BLOOD UREA NITROGEN 10 mg/dL (7-22); SERUM ALBUMIN 3.8 g/dL (3.5-4.8)
[2017-05-05 06:46] LABS: Hematocrit [HCT] 31.5 % (42.0-52.0); MEAN CORPUSCULAR HEMOGLOBIN 24.1 PG (27-31); MEAN CORPUSCULAR HGB CONC 31.6 g/dL (33-37); MEAN CORPUSCULAR VOLUME 76 FL (80-90); MEAN PLATELET VOLUME 7.6 FL (7.4-12.2); PLATELET MORPHOLOGY COMMENT NORMAL MORPHOLOGY (NORM); RBC MORPHOLOGY COMMENT NORMAL MORPHOLOGY (NORM); RED BLOOD COUNT 4.14 10^6/uL (4.70-6.10); WBC MORPHOLOGY COMMENT NORMAL MORPHOLOGY (NORM)
[2017-05-05 06:47] LABS: BAND NEUTROPHILS % 3 % (0-10); BASOPHILS % (MANUAL) 0 % (0-1); EOSINOPHILS % (MANUAL) 0 % (0-8); MONOCYTES % (MANUAL) 1 % (0-12); NEUTROPHILS % (MANUAL) 90 % (50-80)
[2017-05-05] MEDS: oxyCODONE/APAP 10/325 Tab 1 EACH TAB PO PRN ×5 (07:47→22:53)
[2017-05-05] MEDS: metroNIDAZOLE 500mg (Premix) 500 MG/100 ML BAG IV SCH ×3 (07:48→23:38)
[2017-05-05] MEDS: predniSONE Tab 10 MG TAB PO SCH ×2 (07:48→12:46)
[2017-05-05] MEDS: D5-1/2NS + 20mEq KCL 1,000 ML PRIMARY IV SCH ×3 (07:48→18:18)
[2017-05-05] MEDS: methylPREDNISolone 125 MG/2 ML VIAL IVP SCH ×2 (07:49→12:47)
[2017-05-05] MEDS: NORMAL SALINE 10 ML SYRINGE FLUSH IVP PRN (08:43)
--- NOTE | 2017-05-05 20:14 | PDOC(PROG) ---
Date and Time of Service: 05/05/20172003 Interval History: No chest pains, shortness breath, nausea or vomiting. Patient's abdominal pain is improving, although eating did upset his stomach to some degree. We had a long discussion regarding the plan for his Crohn's disease and that'll be reflected in the assessment and plan. Ultimately, patient did not have the best response to Entyvio, but may be willing to try again. Objective : Data - Labs CBC and BMP: 05/05/17 05:23 05/05/17 05:23 Additional Lab Results: 05/05/17 05:23 Neutrophils % (Manual) 90 H Band Neutrophils % 3 Objective : Exam - General General Appearance: No Acute Distress, Cooperative Additional General Exam Details: Selected Entries 05/05/17 04:43 05/05/17 15:52 Temperature 98.4 F 97.8 F Pulse Rate [Pulse Oximeter Right] 68 Respiratory Rate 18 Blood Pressure [Left Arm] 112/71 Blood Pressure Mean [Left Arm] 84 Pulse Ox 97 Oxygen Delivery Method Room Air - Head Head Exam: Normal Inspection, Normocephalic, Atraumatic - Eye Eye Exam: No Scleral Icterus - ENT ENT Exam: Mucous Membranes Moist - Respiratory Respiratory Exam: Clear to Auscultation - Bilaterally, Breathing Non Labored - Cardiovascular Cardiovascular Exam: RRR, No Murmur, No Clicks, No Gallops, No Rubs, No JVD - GI/Abdominal GI/Abdominal Exam: Normal Bowel Sounds, Non Tender, Non Distended, Soft Additional GI/Abdominal Exam Details: Umbilical hernia present - Extremities Extremities Exam: No Clubbing Present, No Edema Present, No Cyanosis Present - Neurological Neurological Exam: Alert, Oriented x 3, No Facial Droop, Speech Intact / Clear, Moves All Extremities Equally Assessment and Plan - Patient Problems (1) Exacerbation of Crohn's disease Current Visit: Yes Status: Acute Code(s): K50.90 - Crohn's disease, unspecified, without complications Qualifiers: Digestive disease complication type: without complication Qualified Code(s) : K50.90 - Crohn's disease, unspecified, without complications (2) Tobacco abuse Current Visit: Yes Status: Acute Code(s): Z72.0 - Tobacco use (3) Diarrhea Current Visit: Yes Status: Acute Code(s): R19.7 - Diarrhea, unspecified (4) Salmonella Current Visit: Yes Status: Chronic Code(s): A02.9 - Salmonella infection, unspecified - Assessment / Plan Additional Assessment/Plan Details: After a long discussion with the patient and also with Dr. Belle, and figuring out that entyvio was not overly successful on attempts in June of this year to help control Crohn's disease, the patient is willing to retry this infusions. He would do 300 mg IV at weeks 0, 2, 4, 6 and then 8 week intervals thereafter. This may help us reduce his steroids as well. Although I think leaving the hospital the patient states that he seems to be much worse when he is below 40 mg of steroids. So we can place him on prednisone 40 mg titrate slowly. If successful after this acute exacerbation of Crohn's disease, I think the above regimen will really help her controlling his Crohn's disease and then the patient can pursue whether or not he should have these segments of bowel to keep getting ready inflamed operated on or his hernias repaired or other surgical options for him. It would be nice to avoid any bowel resections and get this under better control with medications if we can. For his acute exacerbation, I think we need to continue with Flagyl and Solu- Medrol in the hospital until he can tolerate Flagyl by mouth and prednisone by mouth, and then keep on this regimen for at least the next 10 days. In addition , I think we need to make sure that the stool culture is not positive for Salmonella if it is, infectious disease doctors in [place] had told me that they would like to see the patient in the clinic to reduce the Salmonella carrier state and see if they can eliminate this. That would be the only thing that I would recommend we do prior to placing the patient on more immunosuppressive agent such as entyvio. Check labs tomorrow. We will need to schedule the patient to see his technical support agent in [place] post acute exacerbation but I think the infusions of this medication can be done in our infusion center.
[2017-05-06 00:05] VITALS: RESP 20
[2017-05-06] MEDS: HYDROmorphone 2 MG/1 ML IVP PRN ×2 (02:09→10:13)
[2017-05-06] MEDS: oxyCODONE/APAP 10/325 Tab 1 EACH TAB PO PRN (03:04)
[2017-05-06] MEDS: predniSONE Tab 10 MG TAB PO SCH ×2 (07:24→09:26)
[2017-05-06] MEDS: metroNIDAZOLE 500mg (Premix) 500 MG/100 ML BAG IV SCH (07:25)
[2017-05-06 08:49] VITALS: BP 123/81; TEMP 98.6; O2SAT 94
[2017-05-06] MEDS: methylPREDNISolone 125 MG/2 ML VIAL IVP SCH (09:27)
[2017-05-06] MEDS ORDERED: predniSONE Tab 10 MG TAB PO SCH (13:00)
--- NOTE | 2017-05-06 13:07 | DCSUMMARY ---
Hospitalization Summary Hospital Course: Final Discharge Diagnosis: Current Visit Problems Problem Status Onset Code Abdominal pain Acute R10.9 Crohns disease Chronic Unknown K50.90 Tobacco abuse Acute Z72.0 Exacerbation of Crohn's disease Acute K50.90 Diarrhea Acute R19.7 Salmonella Chronic A02.9 Diagnostic Data, Laboratory Data, and Procedures of Signifigance: Microbiology 05/04/17 16:03 Stool WBC Smear - Final 05/04/17 16:03 Stool Stool Culture - Pending 05/04/17 16:03 Stool Clostridium difficile (PCR) - Final 05/04/17 16:03 Stool Cryptosporidium/Giardia - Final Past Medical History Medical History: 1. Crohn's disease, very difficult to control. Has not done well with Biologics to this point including Remicade which caused drug-induced lupus. 2. GERD. 3. 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 Surgical History: 1. Two abdominal surgeries for Crohn's disease including resection with ileostomy and subsequent reversal. The patient also had a ureteral injury at the time of the surgery that required stent placement on the right. 2. Left arm surgery/carpal tunnel with tendon releases and repair. 3. Multiple perianal surgeries for Crohn's disease. 4. Appendectomy. 5. Multiple colonoscopies. 6. EGD, negative. Pertinent Family History: Significant for Crohn's disease in one of his aunts. Past Social History: smokes 2-3 cigarettes daily, , has 2 children. Does not drink alcohol. Tobacco Use: Current Every Day Smoker Course of Hospitalization: This very nice 36-year-old gentleman with the history of recurrence disease with recurrent exacerbations. Comes in with increased diarrhea up to 10-12 a day. He has seen gastroenterology in [place] but he was not satisfied with what they had to offer. He also went to [place] there were going to use to [place] but he did have a reaction to Remicade induced lupus in the past he will now see Dr. Darío Miramontes in [place] where they are thinking of a different treatment plan in the meanwhile is diarrhea is improved at 3-4 a day he will stay on prednisone 40 daily we will stop the Flagyl patient's vitals are stable and feels back to his normal self and would like to be discharged. He does have 3 positive stool culture for salmonella the fourth one is pending he has seen infectious disease in the past as well. On the date of discharge, the patient was examined: Gen.: No acute distress, alert, nontoxic Heart: Regular rate and rhythm, no murmurs, clicks, gallops, or rubs Lungs: Clear to auscultation bilaterally, breathing is nonlabored Abdomen/GI: Normal tones on auscultation, soft, nontender, nondistended Musculoskeletal/extremities: No clubbing, cyanosis, or edema Vitals reviewed and are listed below Assessment and Plan: 1. As per discharge assessments above 2. Disposition: Home 3. Condition on discharge, stable and improved. 4. Diet: regular diet 5. Activities: resume normal activities 6. Follow-Up: 1. PCP 2. 7. Medications at the Time of Discharge: Home Medications Medication Instructions Recorded Confirmed Type Ondansetron Odt [Zofran Odt] 8 mg PO Q6H PRN #10 tab.rapdis 03/22/17 05/04/17 Rx oxyCODONE/APAP 10/325 Tab 1 ea PO Q4H PRN #10 tab 03/22/17 05/04/17 Rx [Percocet 10/325 Tab] predniSONE Tab [Deltasone Tab] 40 mg PO DAILY #60 tab 05/06/17 Rx 3 Generic Name Dose Route Start Last Admin Trade Name Freq PRN Reason Stop Dose Admin Acetaminophen 650 mg 05/04/17 20:04 Tylenol PO Q6H PRN Pain or Fever Calcium Carbonate 1 - 2 tab 05/04/17 20:04 Tums PO Q6H PRN Heartburn Docusate Sodium 100 mg 05/04/17 20:04 Colace PO BID PRN Constipation Hydromorphone HCl 2 mg 05/04/17 20:21 05/06/17 10:13 Dilaudid Inj IVP 2 mg Q4H PRN Administration Pain Lidocaine HCl 0.5 ml 05/04/17 20:04 Lidocaine Buffered Inj SUBD ONCE PRN IV Starts Ondansetron HCl 4 mg 05/04/17 20:04 Zofran Inj IVP Q4H PRN NAUSEA / VOMITING Oxycodone/Acetaminophen 1 each 05/04/17 20:04 05/06/17 03:04 Percocet 10/325 Tab PO 1 each Q4H PRN Administration Pain Prednisone 40 mg 05/06/17 13:00 Deltasone Tab PO DAILY MISAEL Sodium Chloride 5 - 20 ml 05/04/17 20:04 05/05/17 08:43 Saline Flush IVP 10 ml BID PRN Administration Flush 8. Time, care, counseling and coordination of care for this discharge is greater than 30 minutes. Exam - Vitals Vital Signs: Vital Signs Temperature 98.6 F Temperature Source Temporal Artery Scan Pulse Rate [Pulse Oximeter 79 Right] Respiratory Rate 20 Blood Pressure [Left Arm] 123/81 Pulse Ox 94 Oxygen Delivery Method Room Air Height 6 ft 2 in Weight 209 lb
[2017-05-12] MEDS ORDERED: methylPREDNISolone 125 MG/2 ML VIAL IVP SCH (19:00)
== END 2017-05-06 13:16 | disposition home or self-care (01) | DRG 386 ==
LOC: ER 14:38 → MED/SURG 19:01
PROVIDERS: ADMIT Family Medicine; ATTEND Family Medicine

== ENCOUNTER 2017-05-12 13:22 | Inpatient (IN) ==
[2017-05-12] MEDS ORDERED: Sodium Chloride 0.9% 1,000 ML PRIMARY IV ONE (13:47)
[2017-05-12] MEDS ORDERED: NORMAL SALINE 10 ML SYRINGE FLUSH IVP PRN (13:47)
[2017-05-12] MEDS ORDERED: HYDROmorphone 2 MG/1 ML IVP ONE (14:14)
[2017-05-12 14:24] LABS: BLOOD UREA NITROGEN 16 mg/dL (7-22); BUN/CREATININE RATIO 17.77 (6-20); LIPASE 58 IU/L (23-300)
[2017-05-12 14:26] LABS: Hematocrit [HCT] 36 % (42.0-52.0); Hemoglobin [HGB] 11.6 g/dL (14.0-18.0); MEAN CORPUSCULAR HEMOGLOBIN 24.2 PG (27-31); MEAN CORPUSCULAR HGB CONC 32.1 g/dL (33-37); MEAN CORPUSCULAR VOLUME 75 FL (80-90); RED BLOOD COUNT 4.77 10^6/uL (4.70-6.10)
[2017-05-12 14:27] LABS: BASOPHILS # (AUTO) 0.04 10*3/UL; BASOPHILS % (AUTO) 0.3 % (0-1); EOSINOPHILS # (AUTO) 0.14 10*3/UL; MEAN PLATELET VOLUME 7.2 FL (7.4-12.2); MONOCYTES # (AUTO) 0.24 10*3/UL (0.3-0.8); MONOCYTES % (AUTO) 1.7 % (5-15); NEUTROPHILS # (AUTO) 13.15 10*3/UL; NEUTROPHILS % (AUTO) 92.8 % (50-80); PLATELET MORPHOLOGY COMMENT SEE COMMENTS (NORM); RBC MORPHOLOGY COMMENT NORMAL MORPHOLOGY (NORM); WBC MORPHOLOGY COMMENT NORMAL MORPHOLOGY (NORM)
[2017-05-12 15:14] LABS: BILIRUBIN,URINE NEGATIVE (NEG); CLARITY,URINE CLEAR (CLEAR); COLOR,URINE YELLOW (Y); GLUCOSE, URINE (UA) NEGATIVE (NEG); NITRATE,URINE NEGATIVE (NEG); OCCULT BLOOD,URINE NEGATIVE (NEG); PROTEIN,URINE NEGATIVE (NEG); URINE SAMPLE TYPE CLEAN CATCH URINE; UROBILINOGEN,URINE 0.2 EU/dL (0.2)
--- NOTE | 2017-05-12 17:24 | DI ---
CT Abdomen/Pelvis W Contrast,05/12/2017 1:49 PM: Clinical History: Abdominal pain. Previous Exam: May 04, 2017 Findings: Multiple helically acquired CT images are obtained through the abdomen and pelvis following the intra venous administration of 95 cc of Isovue 300, and demonstrate stable abdominal hernias containing sma ll loops of small bowel one is within the umbilicus and the other is to the right of the umbilicus. Postsurgical changes are seen within the right lower quadrant. The urinary bladder is unremarkable. There is no free air nor free fluid. The kidneys are also unremarkable. There is a focus of mucosal prominence within the descending colon with some jesus-serosal fat strandi ng and what appears to be some mild obstruction proximal to this area. The inflammatory changes seen within the terminal ileum are slightly less prominent than on the [facility] rison exam from May 04. Impression: 1. Focal mucosal thickening and pericolonic fat stranding of the descending colon. This is a worrisom e finding and could represent a focus of inflammatory change, but malignancy is not excluded. Conside r colonoscopy for further evaluation.
[2017-05-12] MEDS ORDERED: LIDOCAINE W/ SODIUM BICARB 0.5 ML SYR SUBD PRN (18:23)
[2017-05-12] MEDS ORDERED: oxyCODONE-ACETAMINOPHEN 5-325 TAB PO PRN (18:23)
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
--- NOTE | 2017-05-12 18:57 | PDOC ---
HPI - History of Present Illness Date of Service: 05/12/17 Time of Service: 18:30 Chief Complaint: abdominal pain of few days duration History of Present Illness: This is 36 years old male with medical history with medical history significant for history of Crohn disease with multiple admission to the hospital for Crohn' s exacerbation and also one time admission for small bowel obstruction, he was admitted to the hospital last week because of abdominal pain and diarrhea and was thought that he had an exacerbation of Crohn's disease he was put on Flagyl , steroid, fluid staid for 2 days in the hospital then was discharged home. He was discharged on 60 mg of prednisone and Flagyl. The next day he came in again to the ER the growth of the culture grew salmonella group and he had this grown before and it was decided that time to put him on Levaquin and continue treatment as an outpatient. he said he continued to have abdominal pain mainly felt in the mid abdomen in addition to some right lower abdomen. The diarrhea slowed down and he attributed that to the pain medication he is not eating much because of persistent symptoms he came into the ER. a CT of the abdomen showed area of mucosal prominence within the ascending colon with some fat stranding and some mild obstruction proximal to this area. Patient was given pain medication and was admitted. Currently he rates his pain maybe 5-6 out of 10. He said he did not vomit there was no fever. No bleeding. Past Medical History Medical History: 1. Crohn's disease, very difficult to control. Has not done well with Biologics to this point including Remicade which caused drug-induced lupus. 2. GERD. 3. 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 Surgical History: 1. Two abdominal surgeries for Crohn's disease including resection with ileostomy and subsequent reversal. The patient also had a ureteral injury at the time of the surgery that required stent placement on the right. 2. Left arm surgery/carpal tunnel with tendon releases and repair. 3. Multiple perianal surgeries for Crohn's disease. 4. Appendectomy. 5. Multiple colonoscopies. 6. EGD, negative. Pertinent Family History: Significant for Crohn's disease in one of his aunts. Past Social History: smokes 2-3 cigarettes daily, , has 2 children. Does not drink alcohol. Tobacco Use: Current Every Day Smoker In the Past 12 Months, Have Used or Abuse Any of the Following Substance: None Alcohol Use: None Medication / Allergies Home Medications: Home Medications Medication Instructions Recorded Confirmed Type predniSONE Tab [Deltasone Tab] 40 mg PO DAILY #60 tab 05/06/17 05/12/17 Rx Levofloxacin [Levaquin] 500 mg PO DAILY #14 tab 05/07/17 05/12/17 Rx Sulfamethoxazole/Trimethoprim 40 mg PO DAILY 05/07/17 05/12/17 History [Bactrim 400-80 mg Tablet] metroNIDAZOLE Tab [Flagyl Tab] 500 mg PO Q8H #21 tab 05/07/17 05/12/17 Rx Allergies/Adverse Reactions: Allergies 3 Allergy/AdvReac Type Severity Reaction Status Date / Time adalimumab [From Humira] Allergy RASH Verified 05/12/17 18:34 meperidine HCl [From Demerol] AdvReac Intermediate VOMITING Verified 05/12/17 18 :34 infliximab [From Remicade] AdvReac NOT Verified 05/12/17 18:34 APPLICABLE Review of Systems - Review of Systems All Systems: Reviewed & No Additional Complaints Except as Stated Exam - Vitals Vital Signs: Vital Signs Temperature 97.5 F Temperature Source Temporal Artery Scan Pulse Rate 75 Respiratory Rate 16 Blood Pressure 129/101 Pulse Ox 91 Height 5 ft 11 in Weight 208 lb 4 oz - General General Appearance: No Acute Distress, Cooperative - Head Head Exam: Normal Inspection, Atraumatic - Eye Eye Exam: POSITIVE: Normal Appearance - ENT ENT Exam: POSITIVE: Normal Exam - Neck Neck Exam: Normal Inspection - Respiratory Respiratory Exam: POSITIVE: Clear to Auscultation - Bilaterally - Cardiovascular Cardiovascular Exam: POSITIVE: RRR - GI/Abdominal Additional GI/Abdominal Exam Details: Abdomen is soft there is tenderness in the midabdomen there is a umbilical hernia which is reducible. No organomegaly. Bowel sound present. - Rectal Rectal Exam: POSITIVE: Deferred - External Exam: POSITIVE: Deferred - Extremities Extremities Exam: POSITIVE: Normal Inspection - Neurological Neurological Exam: POSITIVE: Alert, Oriented x 3, CN II-XII Intact, Speech Intact / Clear, Moves All Extremities Equally - Psychiatric Psychiatric Exam: POSITIVE: Normal Affect Results - Labs CBC and BMP: 05/12/17 14:12 05/12/17 14:12 - Imaging Status: Report Reviewed by Me (CT Focal mucosal thickening and pericolonic fat stranding of the descending colon. This is a worrisome finding and could represent a focus of inflammatory change, but malignancy is not excluded. Consider colonoscopy for further evaluation.) Assessment and Plan - Patient Problems (1) Crohns disease Current Visit: Yes Status: Chronic Priority: Medium Onset Date: Unknown Comment: His Crohn's disease seem to be severe and not showing a good response to the high-dose steroid, may speak with gastroenterology tomorrow. I did speak with the surgeon Dr. Jimenez and he will see him in the morning he recommended an upper GI with small bowel follow-through. I think we'll continue what we have here which is the steroid, antibiotics and the fluid. He probably need to be on some biological agent as he is not showing a good response to the current regimen. The significance of salmonella in the culture is unclear will continue with the treatment that was started last week. Code(s): K50.90 - Crohn's disease, unspecified, without complications
[2017-05-12] MEDS: metroNIDAZOLE 500mg (Premix) 500 MG/100 ML BAG IV SCH (19:01)
[2017-05-12] MEDS: Sodium Chloride 0.9% 1,000 ML PRIMARY IV SCH (19:01)
[2017-05-12] MEDS: HYDROmorphone 2 MG/1 ML IVP PRN ×2 (19:01→23:15)
[2017-05-12] MEDS: Pantoprazole Inj 40 MG in Normal Saline Flush 10 ML IVP SCH (20:17)
[2017-05-12] MEDS: methylPREDNISolone 125 MG/2 ML VIAL IVP SCH (20:17)
[2017-05-12] MEDS: oxyCODONE/APAP 10/325 Tab 1 EACH TAB PO PRN (21:17)
[2017-05-13] MEDS: metroNIDAZOLE 500mg (Premix) 500 MG/100 ML BAG IV SCH ×3 (03:38→18:43)
[2017-05-13] MEDS: oxyCODONE/APAP 10/325 Tab 1 EACH TAB PO PRN ×3 (03:38→18:48)
[2017-05-13] MEDS: Sodium Chloride 0.9% 1,000 ML PRIMARY IV SCH ×2 (04:39→23:00)
[2017-05-13 06:51] LABS: BLOOD UREA NITROGEN 9 mg/dL (7-22); BUN/CREATININE RATIO 12.85 (6-20)
[2017-05-13 06:53] LABS: Hemoglobin [HGB] 9.8 g/dL (14.0-18.0); RED BLOOD COUNT 4.16 10^6/uL (4.70-6.10)
[2017-05-13 06:54] LABS: Hematocrit [HCT] 32.8 % (42.0-52.0); MEAN CORPUSCULAR HEMOGLOBIN 23.6 PG (27-31); MEAN CORPUSCULAR HGB CONC 29.9 g/dL (33-37); MEAN CORPUSCULAR VOLUME 78.8 FL (80-90); MEAN PLATELET VOLUME 9.4 FL (7.4-12.2); PLATELET MORPHOLOGY COMMENT NORMAL MORPHOLOGY (NORM); WBC MORPHOLOGY COMMENT NORMAL MORPHOLOGY (NORM)
[2017-05-13 06:55] LABS: BAND NEUTROPHILS % 0 % (0-10); BASOPHILS % (MANUAL) 0 % (0-1); EOSINOPHILS % (MANUAL) 0 % (0-8); MONOCYTES % (MANUAL) 1 % (0-12); NEUTROPHILS % (MANUAL) 89 % (50-80); RBC MORPHOLOGY COMMENT SEE COMMENTS (NORM)
[2017-05-13] MEDS: methylPREDNISolone 125 MG/2 ML VIAL IVP SCH ×3 (07:29→21:38)
--- NOTE | 2017-05-13 07:39 | PDOC(PROG) ---
Date and Time of Service: 05/13/2017 7:37 AM Interval History: Subjective Patient feels better he said compared to yesterday. His pain is much improved. He Did have a small bowel movement. It's not diarrhea. Objective : Data - Labs CBC and BMP: 05/13/17 06:00 05/13/17 06:00 Objective : Exam - General General Appearance: No Acute Distress, Cooperative - Head Head Exam: Normal Inspection - Eye Eye Exam: Normal Appearance - ENT ENT Exam: Normal Exam - Neck Neck Exam: Normal Inspection - Respiratory Respiratory Exam: Clear to Auscultation - Bilaterally - Cardiovascular Cardiovascular Exam: RRR - GI/Abdominal GI/Abdominal Exam: Normal Bowel Sounds, Non Tender, Non Distended, Soft, No Organomegaly - Rectal Rectal Exam: Deferred - External Exam: Deferred - Extremities Extremities Exam: Normal Inspection - Back Back Exam: Normal Inspection - Neurological Neurological Exam: Alert, Oriented x 3, CN II-XII Intact, Speech Intact / Clear , Moves All Extremities Equally - Psychiatric Psychiatric Exam: Normal Affect Assessment and Plan - Patient Problems (1) Crohns disease Current Visit: Yes Status: Chronic Priority: Medium Onset Date: Unknown Comment: He is improved but we gave him high dose steroid. I think we'll continue with the steroid, antibiotics and will do the upper GI with small bowel follow-through today. We'll keep him another day. I May speak with the operator helper once we have the results. I did speak with Dr. Jimenez so he knows about him. Code(s): K50.90 - Crohn's disease, unspecified, without complications
[2017-05-13] MEDS: LEVOFLOXACIN 500 MG TABLET PO SCH (08:56)
[2017-05-13] MEDS: Pantoprazole Inj 40 MG in Normal Saline Flush 10 ML IVP SCH (08:56)
--- NOTE | 2017-05-13 12:06 | CONSULT ---
Consult Note - Consult Consult Date: 05/13/17 Reason for Consult: PreOp Consulation : General Surgery Requesting Physician: Dr. Rose Primary Care Provider: Jf Chowdhury MD - History of Present Illness History of Present Illness: This is a 36-year-old gentleman has known history of Crohn's disease comes in with exasperation of his abdominal pain. Today the patient actually feeling a lot better. Past Medical History Medical History: 1. Crohn's disease, very difficult to control. Has not done well with Biologics to this point including Remicade which caused drug-induced lupus. 2. GERD. 3. 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 Surgical History: 1. Two abdominal surgeries for Crohn's disease including resection with ileostomy and subsequent reversal. The patient also had a ureteral injury at the time of the surgery that required stent placement on the right. 2. Left arm surgery/carpal tunnel with tendon releases and repair. 3. Multiple perianal surgeries for Crohn's disease. 4. Appendectomy. 5. Multiple colonoscopies. 6. EGD, negative. Pertinent Family History: Significant for Crohn's disease in one of his aunts. Past Social History: smokes 2-3 cigarettes daily, , has 2 children. Does not drink alcohol. Tobacco Use: Current Every Day Smoker In the Past 12 Months, Have Used or Abuse Any of the Following Substance: None Alcohol Use: None Medication / Allergies Home Medications: Home Medications Medication Instructions Recorded Confirmed Type predniSONE Tab [Deltasone Tab] 40 mg PO DAILY #60 tab 05/06/17 05/12/17 Rx Levofloxacin [Levaquin] 500 mg PO DAILY #14 tab 05/07/17 05/12/17 Rx Sulfamethoxazole/Trimethoprim 40 mg PO DAILY 05/07/17 05/12/17 History [Bactrim 400-80 mg Tablet] metroNIDAZOLE Tab [Flagyl Tab] 500 mg PO Q8H #21 tab 05/07/17 05/12/17 Rx Allergies/Adverse Reactions: Allergies 3 Allergy/AdvReac Type Severity Reaction Status Date / Time adalimumab [From Humira] Allergy RASH Verified 05/12/17 18:34 meperidine HCl [From Demerol] AdvReac Intermediate VOMITING Verified 05/12/17 18 :34 infliximab [From Remicade] AdvReac NOT Verified 05/12/17 18:34 APPLICABLE Results - Labs CBC and BMP: 05/13/17 06:00 05/13/17 06:00 Exam - Vitals Vital Signs: Vital Signs Temperature 98 F Temperature Source Oral Pulse Rate [Pulse Oximeter] 66 Pulse Rate 75 Respiratory Rate 18 Blood Pressure [Left Arm] 122/69 Blood Pressure 129/101 Pulse Ox 95 Oxygen Delivery Method Room Air Height 5 ft 11 in Weight 207 lb 12.8 oz - General General Appearance: No Acute Distress - GI/Abdominal GI/Abdominal Exam: POSITIVE: Non Tender, Non Distended, Soft, Hernia (Patient has a hernia in the right lower quadrant and an umbilical hernia. His of both freely reducible nonincarcerated) Assessment and Plan - Patient Problems (1) Incisional hernia of anterior abdominal wall without obstruction or gangrene Current Visit: Yes Status: Acute Code(s): K43.2 - Incisional hernia without obstruction or gangrene (2) Abdominal pain Current Visit: Yes Status: Acute Code(s): R10.9 - Unspecified abdominal pain (3) Crohns disease Current Visit: Yes Status: Chronic Priority: Medium Onset Date: Unknown Code(s): K50.90 - Crohn's disease, unspecified, without complications - Assessment / Plan Additional Assessment/Plan Details: At this point I think patient does have exacerbation was Crohn's disease he currently is feeling better on high-dose steroids. I think he needs a small bowel follow-through to rule out stricture or fistula. Scars his hernias are concerned they are not incarcerated therefore weight is up high-dose steroids before recommending in these fixed.
[2017-05-13] MEDS: HYDROmorphone 2 MG/1 ML IVP PRN ×3 (14:07→22:00)
[2017-05-14] MEDS: oxyCODONE/APAP 10/325 Tab 1 EACH TAB PO PRN ×3 (00:45→15:51)
[2017-05-14] MEDS: HYDROmorphone 2 MG/1 ML IVP PRN ×5 (02:17→21:31)
[2017-05-14] MEDS: metroNIDAZOLE 500mg (Premix) 500 MG/100 ML BAG IV SCH ×3 (02:20→18:40)
[2017-05-14] MEDS: Sodium Chloride 0.9% 1,000 ML PRIMARY IV SCH (03:35)
[2017-05-14 07:32] LABS: Hematocrit [HCT] 31.3 % (42.0-52.0); Hemoglobin [HGB] 9.9 g/dL (14.0-18.0); MEAN CORPUSCULAR HEMOGLOBIN 23.8 PG (27-31); MEAN CORPUSCULAR HGB CONC 31.8 g/dL (33-37); MEAN CORPUSCULAR VOLUME 75 FL (80-90); RED BLOOD COUNT 4.18 10^6/uL (4.70-6.10)
[2017-05-14 07:33] LABS: BASOPHILS % (AUTO) 0.3 % (0-1); EOSINOPHILS % (AUTO) 0.9 % (0-8); MEAN PLATELET VOLUME 6.8 FL (7.4-12.2); MONOCYTES % (AUTO) 3.8 % (5-15); NEUTROPHILS # (AUTO) 10.03 10*3/UL; NEUTROPHILS % (AUTO) 88.3 % (50-80)
[2017-05-14 07:34] LABS: BASOPHILS # (AUTO) 0.03 10*3/UL; LYMPHOCYTES # (AUTO) 0.76 10*3/uL; MONOCYTES # (AUTO) 0.43 10*3/UL (0.3-0.8); PLATELET MORPHOLOGY COMMENT NORMAL MORPHOLOGY (NORM); RBC MORPHOLOGY COMMENT NORMAL MORPHOLOGY (NORM); WBC MORPHOLOGY COMMENT NORMAL MORPHOLOGY (NORM)
[2017-05-14] MEDS: Pantoprazole Inj 40 MG in Normal Saline Flush 10 ML IVP SCH (08:37)
[2017-05-14] MEDS: methylPREDNISolone 125 MG/2 ML VIAL IVP SCH ×2 (08:37→21:31)
--- NOTE | 2017-05-14 10:07 | PDOC(PROG) ---
Date and Time of Service: 05/14/2017 10:05 AM Interval History: Subjective Patient said that he had his lunch yesterday and started to have pain so he is back on pain medication including some Dilaudid. No diarrhea. Started the small bowel follow-through study. Objective : Data - Labs CBC and BMP: 05/14/17 07:00 05/13/17 06:00 Objective : Exam - General General Appearance: No Acute Distress, Cooperative - Head Head Exam: Normal Inspection - Eye Eye Exam: Normal Appearance - ENT ENT Exam: Normal Exam - Neck Neck Exam: Normal Inspection - Respiratory Respiratory Exam: Clear to Auscultation - Bilaterally - Cardiovascular Cardiovascular Exam: RRR - GI/Abdominal GI/Abdominal Exam: Normal Bowel Sounds, Non Distended, Soft Additional GI/Abdominal Exam Details: Some minimal tenderness in the mid abdomen above the umbilicus - Rectal Rectal Exam: Deferred - External Exam: Deferred - Extremities Extremities Exam: Normal Inspection - Back Back Exam: Normal Inspection - Neurological Neurological Exam: Alert, Oriented x 3, CN II-XII Intact, No Facial Droop, Speech Intact / Clear, Moves All Extremities Equally - Psychiatric Psychiatric Exam: Normal Affect Assessment and Plan - Patient Problems (1) Crohns disease Current Visit: Yes Status: Chronic Priority: Medium Onset Date: Unknown Comment: We treated him as an exacerbation of his disease continue steroid I think we'll stop the fluid. once the small bowel study is done and once we have the results, I may speak with the gastroenterology if there is no evidence of obstruction. Code(s): K50.90 - Crohn's disease, unspecified, without complications
[2017-05-14] MEDS: NORMAL SALINE 10 ML SYRINGE FLUSH IVP PRN ×2 (11:55→17:24)
[2017-05-14] MEDS ORDERED: LEVOFLOXACIN 500 MG TABLET PO ONE (16:00)
[2017-05-14] MEDS: LEVOFLOXACIN 500 MG TABLET PO SCH (16:18)
--- NOTE | 2017-05-14 22:59 | DI ---
XR UPPER GI W/SBFT,05/14/2017 8:00 AM: Clinical History: Crohn's disease. Previous Exam: None at this facility. Findings: Multiple images are obtained as part of an upper gastrointestinal series and small bowel follow-throu gh. The esophagus demonstrates normal course, caliber and mucosal pattern. There is no filling defect . The stomach demonstrates normal size, shape and distention. The duodenal bulb and duodenal sweep were within normal limits. Small bowel follow-through images were obtained and were delayed with the final image, and after 4 ho urs at which point there is complete movement of contrast through the colon. There is no definite stricture. There is some mild narrowing of the distal ileum but no evidence of p roximal dilation of the bowel proximal. Impression: 1. Normal upper gastrointestinal series. 2. Delayed passage of contrast through the small bowel without any definite stricture.
[2017-05-15] MEDS: oxyCODONE/APAP 10/325 Tab 1 EACH TAB PO PRN (00:54)
[2017-05-15] MEDS: metroNIDAZOLE 500mg (Premix) 500 MG/100 ML BAG IV SCH (02:01)
[2017-05-15] MEDS: HYDROmorphone 2 MG/1 ML IVP PRN (02:02)
[2017-05-15 05:33] VITALS: RESP 16
[2017-05-15 08:30] VITALS: BP 139/81; TEMP 97.7; O2SAT 97
[2017-05-15] MEDS: NORMAL SALINE 10 ML SYRINGE FLUSH IVP PRN (08:38)
[2017-05-15] MEDS: Pantoprazole Inj 40 MG in Normal Saline Flush 10 ML IVP SCH (08:38)
[2017-05-15] MEDS: LEVOFLOXACIN 500 MG TABLET PO SCH (08:38)
[2017-05-15] MEDS: methylPREDNISolone 125 MG/2 ML VIAL IVP SCH (08:38)
--- NOTE | 2017-05-15 10:16 | DCSUMMARY ---
Hospitalization Summary Admit Date: 05/12/2017 Discharge Date: 05/15/17 Hospital Course: Discharge diagnoses 1. Crohn's disease not controlled well with high-dose steroid 2. History of C. difficile before 3. 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 GERD 5. 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 He was discharged on 60mg prednisone and Flagyl. The next day he came in again to the ER and noted that time at that time that the growth in stool culture showed some Salmonella group and he was put on Levaquin and sent home. He said he continued to have abdominal pain mainly felt in the mid abdomen in addition to some right lower abdominal pain. His diarrhea did slow down he attributed that to the pain medication that he was getting. Because of persistent symptoms he came into the ER a CT of the abdomen showed area of mucosal prominence within the descending colon some fat stranding . Patient was given pain medications and was admitted. When I saw him his exam remarkable for some mild tenderness in the mid abdomen. I did consult surgery who suggested an upper GI with small bowel follow-through. He had that test and that did not show evidence of stricture. on The day of discharge he was feeling better his pain seemed to be controlled. He was tolerating diet so we thought that he could be discharged home and continue with the high dose of steroids and finish the course of Flagyl he is already done with the Levaquin treatment for the Salmonella. To me am not sure whether the salmonella causing any of his symptoms. I think it seems to me that he has a Crohn's disease that' s not controlled and not showing a good response to high-dose steroid. I did speak with the bottle packer Dr Belle and he knows about him and he'll follow-up with him. I did speak with the patient and I did tell him that the Dr. Belle recommended that he follow-up with a [facility] in addition to seeing him. He said that his is working on getting him an appointment with the [facility]. CBC and BMP 05/14/17 07:00 05/13/17 06:00 Discharge instruction Diet regular Activity as started Medications Home Medications Medication Instructions Recorded Confirmed Type metroNIDAZOLE Tab [Flagyl Tab] 500 mg PO Q8H #21 tab 05/07/17 05/12/17 Rx Omeprazole 20 mg PO DAILY #30 tablet. 05/15/17 Rx oxyCODONE/APAP 10/325 Tab 1 ea PO Q4H PRN #25 tab 05/15/17 Rx [Percocet 10/325 Tab] predniSONE Tab [Deltasone Tab] 60 mg PO DAILY #60 tab 05/15/17 05/12/17 Rx Follow-up with PCP in 1-2 weeks, follow-up with the GI as scheduled Condition at discharge was stable for discharge Exam - Vitals Vital Signs: Vital Signs Temperature 97.7 F Temperature Source Temporal Artery Scan Pulse Rate [Pulse Oximeter] 70 Pulse Rate 75 Respiratory Rate 16 Blood Pressure [Left Arm] 139/81 Blood Pressure 129/101 Pulse Ox 97 Oxygen Delivery Method Room Air Height 5 ft 11 in Weight 207 lb - General General Appearance: No Acute Distress, Cooperative - Head Head Exam: Normal Inspection, Atraumatic - Eye Eye Exam: POSITIVE: Normal Appearance - ENT ENT Exam: POSITIVE: Normal Exam - Neck Neck Exam: Normal Inspection - Respiratory Respiratory Exam: POSITIVE: Clear to Auscultation - Bilaterally - Cardiovascular Cardiovascular Exam: POSITIVE: RRR - GI/Abdominal GI/Abdominal Exam: POSITIVE: Normal Bowel Sounds, Non Tender, Non Distended, Soft, No Organomegaly - Rectal Rectal Exam: POSITIVE: Deferred - External Exam: POSITIVE: Deferred - Extremities Extremities Exam: POSITIVE: Normal Inspection - Back Back Exam: POSITIVE: Normal Inspection - Neurological Neurological Exam: POSITIVE: Alert, Oriented x 3, CN II-XII Intact, No Facial Droop, Moves All Extremities Equally - Psychiatric Psychiatric Exam: POSITIVE: Normal Affect Patient Problems - Patient Problem List (1) Crohns disease Status: Chronic Onset Date: Unknown Priority: Medium Comment: No exacerbation. Code(s): K50.90 - Crohn's disease, unspecified, without complications Category: Medical
== END 2017-05-15 10:20 | disposition home or self-care (01) | DRG 387 ==
LOC: ER 13:22 → MED/SURG 16:42
PROVIDERS: ADMIT Internal Medicine; ATTEND Internal Medicine

== ENCOUNTER 2017-05-21 09:46 | Inpatient (IN) ==
[2017-05-21] MEDS ORDERED: ONDANSETRON 4 MG/2 ML VIAL IVP ONE (10:02)
[2017-05-21] MEDS ORDERED: NORMAL SALINE 10 ML SYRINGE FLUSH IVP PRN ×2 (10:02→15:20)
[2017-05-21] MEDS ORDERED: HYDROmorphone 2 MG/1 ML IVP ONE ×3 (10:02→10:48)
[2017-05-21] MEDS ORDERED: Sodium Chloride 0.9% 1,000 ML PRIMARY IV ONE (10:02)
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
[2017-05-21 10:54] LABS: BILIRUBIN,URINE NEGATIVE (NEG); CLARITY,URINE CLEAR (CLEAR); COLOR,URINE YELLOW (Y); GLUCOSE, URINE (UA) NEGATIVE (NEG); NITRATE,URINE NEGATIVE (NEG); OCCULT BLOOD,URINE NEGATIVE (NEG); PH,URINE 8.5 (5.0-8.5); PROTEIN,URINE NEGATIVE (NEG); UROBILINOGEN,URINE 0.2 EU/dL (0.2)
[2017-05-21 10:56] LABS: URINE SAMPLE TYPE CLEAN CATCH URINE
[2017-05-21 11:06] LABS: BLOOD UREA NITROGEN 10 mg/dL (7-22); LIPASE 85 IU/L (23-300); MAGNESIUM 2.1 mg/dL (1.6-2.4); SERUM ALBUMIN 3.8 g/dL (3.5-4.8)
[2017-05-21 11:12] LABS: BASOPHILS % (AUTO) 0.3 % (0-1); Hematocrit [HCT] 34.9 % (42.0-52.0); Hemoglobin [HGB] 11.2 g/dL (14.0-18.0); MEAN CORPUSCULAR VOLUME 75 FL (80-90); MEAN PLATELET VOLUME 7.4 FL (7.4-12.2); NEUTROPHILS % (AUTO) 90.3 % (50-80); RED BLOOD COUNT 4.67 10^6/uL (4.70-6.10)
[2017-05-21 11:13] LABS: BASOPHILS # (AUTO) 0.04 10*3/UL; EOSINOPHILS # (AUTO) 0.13 10*3/UL; LYMPHOCYTES # (AUTO) 0.71 10*3/uL; PLATELET MORPHOLOGY COMMENT NORMAL MORPHOLOGY (NORM); RBC MORPHOLOGY COMMENT NORMAL MORPHOLOGY (NORM); WBC MORPHOLOGY COMMENT NORMAL MORPHOLOGY (NORM)
[2017-05-21] MEDS ORDERED: LORazepam 2 MG/1 ML VIAL IVP ONE ×2 (11:52→13:28)
--- NOTE | 2017-05-21 12:37 | DI ---
CT Abdomen/Pelvis W Contrast,05/21/2017 10:03 AM: Clinical History: Abdominal pain and history of Crohn's disease. Previous Exam: May 12, 2017 Findings: Multiple helically acquired CT images are obtained through the abdomen and pelvis following the intra venous administration of contrast. There is still some oral contrast within the colon. This is from p rior upper gastrointestinal series. The lung bases are clear. There is mild fatty infiltration of liver. The gallbladder is unremarkable. The pancreas, spleen, adr enals and kidneys are unremarkable. The urinary bladder is unremarkable. The inflammatory changes seen of the descending colon have worsened since the prior exam with increas ed swelling pericolonic fat stranding and luminal narrowing. The sigmoid colon is unremarkable. There are worsening inflammatory changes of the distal ileum as well which extends up to the right lo wer quadrant in the region of the ventral hernia. The ventral hernia appears stable otherwise. The um bilical hernia also appears stable. Impression: 1. Worsening inflammatory changes of the descending colon with near complete occlusion of the distal descending colon. 2. Worsening inflammatory changes of the right terminal ileum. This extends further into the more pro ximal portion of the small bowel near the right lower quadrant ventral hernia.
[2017-05-21] MEDS ORDERED: metroNIDAZOLE 500mg (Premix) 500 MG/100 ML BAG IV SCH (15:20)
[2017-05-21] MEDS ORDERED: ONDANSETRON 4 MG/2 ML VIAL IVP PRN (15:20)
[2017-05-21] MEDS ORDERED: ACETAMINOPHEN 325 MG TABLET PO PRN (15:20)
[2017-05-21] MEDS ORDERED: CALCIUM CARBONATE 500 MG (TUMS) CHEWABLE TABLET PO PRN (15:20)
[2017-05-21] MEDS ORDERED: LIDOCAINE W/ SODIUM BICARB 0.5 ML SYR SUBD PRN (15:20)
[2017-05-21] MEDS ORDERED: DOCUSATE 100 MG CAPSULE PO PRN (15:20)
[2017-05-21] MEDS: Sodium Chloride 0.9% 1,000 ML PRIMARY IV SCH (15:51)
[2017-05-21] MEDS: HYDROmorphone 2 MG/1 ML IVP PRN ×3 (15:55→20:58)
[2017-05-21] MEDS ORDERED: MAGNESIUM 400 MG/5 ML - 30 ML (MILK OF MAGNESIA) PO ONE (19:45)
[2017-05-21] MEDS: IBUPROFEN 800 MG TABLET PO SCH (20:14)
--- NOTE | 2017-05-21 23:01 | PDOC ---
HPI - History of Present Illness Date of Service: 05/21/17 Time of Service: 18:40 Chief Complaint: abdominal pain History of Present Illness: This is a 36 YO male with crohn's disease with multiple flares or exacerbations this year. His story has been complicated by remicade induced lupus. He has not been able to tolerate biologics or has not responded to them. He recently had an exacerbation treated with steroids and flagyl and was eventually discharged home. He states he came back with severe abdominal pain and states to me tonight that it is related to his opiates of percocet and oxycodone. He states he feels constipated, something that rarely happens for him. He denies fevers or chills. He feels like this pain is different from his crohn's disease. His CT scan in the emergency room shows worsening inflammation at right terminal ileum and proximally. He is generally inflamed here this year. In addition, his salmonella carrier state has not changed since 09/2016. He has an appointment at [place] in [place] for evaluation of his Crohn's disease. He is hoping to avoid surgery for now. He does state to me NSAIDs did help with his pain in the past and hydrocodone did as well with less constipation. No nausea or vomiting. Continues to smoke. He has been on probiotics for about a month or so. With so many frequent hospitalizations, he has not been able to follow up with ID and apparently was told by GI locally that he needed to go to a referral center for further evaluation. Past Medical History Medical History: 1. Crohn's disease, very difficult to control. Has not done well with Biologics to this point including Remicade which caused drug-induced lupus. 2. GERD. 3. 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 Surgical History: 1. Two abdominal surgeries for Crohn's disease including resection with ileostomy and subsequent reversal. The patient also had a ureteral injury at the time of the surgery that required stent placement on the right. 2. Left arm surgery/carpal tunnel with tendon releases and repair. 3. Multiple perianal surgeries for Crohn's disease. 4. Appendectomy. 5. Multiple colonoscopies. 6. EGD, negative. Pertinent Family History: Significant for Crohn's disease in one of his aunts. Past Social History: smokes 2-3 cigarettes daily, , has 2 children. Does not drink alcohol. Tobacco Use: Current Every Day Smoker In the Past 12 Months, Have Used or Abuse Any of the Following Substance: None Alcohol Use: None Medication / Allergies Home Medications: Home Medications Medication Instructions Recorded Confirmed Type oxyCODONE/APAP 10/325 Tab 1 ea PO Q4H PRN #25 tab 05/15/17 05/21/17 Rx [Percocet 10/325 Tab] predniSONE Tab [Deltasone Tab] 60 mg PO DAILY #60 tab 05/15/17 05/21/17 Rx Pantoprazole Sodium 20 mg PO DAILY 05/21/17 05/21/17 History Allergies/Adverse Reactions: Allergies 3 Allergy/AdvReac Type Severity Reaction Status Date / Time adalimumab [From Humira] Allergy RASH Verified 05/12/17 18:34 meperidine HCl [From Demerol] AdvReac Intermediate VOMITING Verified 05/12/17 18 :34 infliximab [From Remicade] AdvReac NOT Verified 05/12/17 18:34 APPLICABLE Review of Systems - Constitutional Constitutional: REPORTS: Other (no fevers, no chills.) - Respiratory Respiratory: REPORTS: Negative System Review - Cardiovascular Cardiovascular: REPORTS: Negative System Review - Gastrointestinal Gastrointestinal / Abdominal: REPORTS: See HPI Exam - Vitals Vital Signs: Vital Signs Temperature 97.4 F Temperature Source Temporal Artery Scan Pulse Rate [Pulse Oximeter] 65 Pulse Rate 60 Respiratory Rate 12 Blood Pressure [Right Arm] 126/90 Blood Pressure [Left Arm] 128/86 Blood Pressure 111/75 Pulse Ox 95 Oxygen Delivery Method Room Air Height 5 ft 11 in Weight 207 lb - General General Appearance: No Acute Distress, Cooperative - Head Head Exam: Normal Inspection, Normocephalic, Atraumatic - ENT ENT Exam: POSITIVE: Mucous Membranes Moist - Neck Neck Exam: Normal Inspection - Respiratory Respiratory Exam: POSITIVE: Clear to Auscultation - Bilaterally, Breathing Non Labored, Normal to Percussion and Palpation - Cardiovascular Cardiovascular Exam: POSITIVE: RRR, No Murmur, No Clicks, No Gallops, No Rubs, No JVD - GI/Abdominal GI/Abdominal Exam: POSITIVE: Non Tender, Non Distended, Soft, Hernia (umbilical , chronic, no change in appearance) - Rectal Rectal Exam: POSITIVE: Deferred - External Exam: POSITIVE: Deferred Exam: POSITIVE: Deferred - Extremities Extremities Exam: POSITIVE: No Clubbing Present, No Edema Present, No Cyanosis Present - Back Back Exam: POSITIVE: No CVA Tenderness - Neurological Neurological Exam: POSITIVE: Alert, Oriented x 3, No Facial Droop, Speech Intact / Clear, Moves All Extremities Equally - Psychiatric Psychiatric Exam: POSITIVE: Normal Affect, Normal Mood Results - Labs CBC and BMP: 05/21/17 10:30 05/21/17 10:30 Additional Lab Results: Laboratory Results 05/21/17 05/21/17 05/21/17 Range/Units 10:30 10:30 10:30 WBC 13.2 H (4.8-10.8) 10^3/uL RBC 4.67 L (4.70-6.10) 10^6/uL Hgb 11.2 L (14.0-18.0) g/dL Hct 34.9 L (42.0-52.0) % MCV 75 L (80-90) FL MCH 24.0 L (27-31) PG MCHC 32.0 L (33-37) g/dL RDW Coeff of Fidel 15.2 H (11.5-14.5) % Plt Count 410 H (140-350) 10*3/uL MPV 7.4 (7.4-12.2) FL Neut % (Auto) 90.3 H (50-80) % Lymph % (Auto) 5.4 L (10-50) % [place] % (Auto) 3.0 L (5-15) % Eos % (Auto) 1.0 (0-8) % Baso % (Auto) 0.3 (0-1) % Neut # (Auto) 11.90 10*3/UL Lymph # (Auto) 0.71 10*3/uL [place] # (Auto) 0.40 (0.3-0.8) 10*3/UL Eos # (Auto) 0.13 10*3/UL Baso # (Auto) 0.04 10*3/UL WBC Morphology Comment Normal morphology (NORM) Plt Morphology Comment Normal morphology (NORM) RBC Morph Comment Normal morphology (NORM) Sodium 139 (135-145) meq/L Potassium 4.5 (3.8-5.2) meq/L Chloride 103 (98-112) meq/L Carbon Dioxide 26 (23-33) meq/L Anion Gap 10 (5-20) BUN 10 (7-22) mg/dL Creatinine 0.8 (0.70-1.50) mg/dL Estimated GFR > 60 (>60 ml/min/1.73m(2)) BUN/Creatinine Ratio 12.50 (6-20) Glucose 96 (78-110) mg/dL Calculated Osmolality 286.0 (267-292) mOsm/kg Calcium 9.5 (8.7-10.7) mg/dL Magnesium 2.1 (1.6-2.4) mg/dL Total Bilirubin 0.3 (0.3-1.2) mg/dL AST 14 L (21-57) IU/L ALT 24 (21-72) IU/L Alkaline Phosphatase 70 (38-126) IU/L C-Reactive Protein 3.4 H (0.0-0.9) mg/dL Total Protein 7.1 (6.1-8.0) g/dL Albumin 3.8 (3.5-4.8) g/dL Globulin 3.3 (2.50-4.10) g/dL Albumin/Globulin Ratio 1.10 L (1.3-2.0) mg/g Amylase 64 (30-110) U/L Lipase 85 (23-300) IU/L Ur Collection Type Clean catch urine Urine Color Yellow (Y) Urine Clarity Clear (CLEAR) Urine pH 8.5 (5.0-8.5) Ur Specific [place] 1.015 (1.005-1.030) Urine Protein Negative (NEG) mg/dl Urine Glucose (UA) Negative (NEG) mg/dL Urine Ketones Negative (NEG) Urine Occult Blood Negative (NEG) Urine Nitrate Negative (NEG) Urine Bilirubin Negative (NEG) Urine Urobilinogen 0.2 (0.2) EU/dL Ur Leukocyte Esterase Negative (NEG) Ur Culture Indicated? Culture not set - Imaging Status: Report Reviewed by Me (inflammation in the terminal ileum and small bowel proximal to that.) Assessment and Plan - Patient Problems (1) Crohns disease Current Visit: No Status: Chronic Priority: Medium Onset Date: Unknown Code(s): K50.90 - Crohn's disease, unspecified, without complications Qualifiers: Gastrointestinal tract location: small intestine Digestive disease complication type: unspecified complication Qualified Code(s): K50.019 - Crohn 's disease of small intestine with unspecified complications (2) Constipation Current Visit: Yes Status: Acute Code(s): K59.00 - Constipation, unspecified Qualifiers: Constipation type: drug induced constipation Qualified Code(s): K59.03 - Drug induced constipation (3) Salmonella Current Visit: Yes Status: Chronic Code(s): A02.9 - Salmonella infection, unspecified - Assessment / Plan Additional Assessment/Plan Details: admit will continue steroids, prednisone, at 60 mg daily PPI change pain medications to hydrocodone and NSAID. will check with ID regarding continued presence of salmonella. He had a course of levaquin, but I think this is a chronic carrier state dose of MOM today for constipation IV fluids for hydration. check labs tomorrow try to get patient to his appointment in [place], but I still think if exacerbations of Crohn's continue, surgery for terminal ileum revision is likely necessary. I continued to hammer the point home that smoking is not helping the situation. I advised to quit.
[2017-05-22] MEDS: Sodium Chloride 0.9% 1,000 ML PRIMARY IV SCH ×2 (01:41→09:23)
[2017-05-22] MEDS: IBUPROFEN 800 MG TABLET PO SCH ×3 (03:44→19:25)
[2017-05-22 07:03] LABS: Hemoglobin [HGB] 9.6 g/dL (14.0-18.0); MEAN CORPUSCULAR HEMOGLOBIN 23.9 PG (27-31); MEAN CORPUSCULAR VOLUME 75 FL (80-90); RED BLOOD COUNT 4.03 10^6/uL (4.70-6.10)
[2017-05-22 07:04] LABS: BAND NEUTROPHILS % 0 % (0-10); BASOPHILS % (MANUAL) 1 % (0-1); EOSINOPHILS % (MANUAL) 0 % (0-8); MEAN PLATELET VOLUME 7.8 FL (7.4-12.2); MONOCYTES % (MANUAL) 5 % (0-12); NEUTROPHILS % (MANUAL) 73 % (50-80); PLATELET MORPHOLOGY COMMENT NORMAL MORPHOLOGY (NORM); RBC MORPHOLOGY COMMENT NORMAL MORPHOLOGY (NORM); WBC MORPHOLOGY COMMENT NORMAL MORPHOLOGY (NORM)
[2017-05-22] MEDS: HYDROmorphone 2 MG/1 ML IVP PRN ×3 (07:15→11:35)
[2017-05-22] MEDS: PANTOPRAZOLE 40 MG TABLET PO SCH (07:24)
[2017-05-22] MEDS: predniSONE Tab 20 MG TAB PO SCH (08:53)
[2017-05-22] MEDS: HYDROcodone-APAP 5 MG -325 MG TABLET PO PRN ×2 (08:54→13:43)
[2017-05-22] MEDS ORDERED: methylPREDNISolone 125 MG/2 ML VIAL IVP SCH (09:00)
[2017-05-22] MEDS ORDERED: predniSONE Tab 10 MG TAB PO SCH (09:00)
[2017-05-22] MEDS ORDERED: LORazepam 1 MG TABLET PO PRN ×2 (12:23→15:06)
[2017-05-22] MEDS: HYDROcodone-APAP 7.5 MG-325 MG TABLET PO PRN (17:45)
--- NOTE | 2017-05-22 20:31 | PDOC(PROG) ---
Date and Time of Service: 05/22/2017,2027 Interval History: seen earlier. no CP, no SOB, no nausea or vomiting. has, through the day, had return of normal bowel movements. hydrocodone not controlling pain at lower doses. Objective : Data - Labs CBC and BMP: 05/22/17 05:53 05/21/17 10:30 Objective : Exam - General General Appearance: No Acute Distress, Cooperative Additional General Exam Details: Vital Signs (24 hrs) Temp Pulse Pulse Resp BP Pulse Ox 05/22/17 19:00 72 05/22/17 16:53 97.9 F 68 18 111/66 95 05/22/17 11:39 97.7 F 85 18 136/89 95 05/22/17 07:40 97.8 F 65 18 130/91 94 05/22/17 04:05 97.3 F 64 12 124/88 92 05/22/17 00:27 98.3 F 73 18 117/79 96 05/21/17 20:53 97.4 F 65 12 126/90 95 - Eye Eye Exam: No Scleral Icterus - ENT ENT Exam: Mucous Membranes Moist - Respiratory Respiratory Exam: Clear to Auscultation - Bilaterally, Breathing Non Labored - Cardiovascular Cardiovascular Exam: RRR, No Murmur, No Clicks, No Gallops, No Rubs, No JVD - GI/Abdominal GI/Abdominal Exam: Normal Bowel Sounds, Non Distended, Soft Additional GI/Abdominal Exam Details: tender to palpation today - Extremities Extremities Exam: No Clubbing Present, No Edema Present, No Cyanosis Present - Neurological Neurological Exam: Alert, Oriented x 3, Normal Gait, No Facial Droop, Speech Intact / Clear, Moves All Extremities Equally - Psychiatric Psychiatric Exam: Normal Affect, Normal Mood Assessment and Plan - Patient Problems (1) Crohns disease Current Visit: No Status: Chronic Priority: Medium Onset Date: Unknown Code(s): K50.90 - Crohn's disease, unspecified, without complications Qualifiers: Gastrointestinal tract location: small intestine Digestive disease complication type: unspecified complication Qualified Code(s): K50.019 - Crohn 's disease of small intestine with unspecified complications (2) Constipation Current Visit: Yes Status: Acute Code(s): K59.00 - Constipation, unspecified Qualifiers: Constipation type: drug induced constipation Qualified Code(s): K59.03 - Drug induced constipation (3) Salmonella Current Visit: Yes Status: Chronic Comment: I spoke with ID. They recommended NO TREATMENT for this. They thought continued antibiotic courses could make the patient worse. Code(s): A02.9 - Salmonella infection, unspecified - Assessment / Plan Additional Assessment/Plan Details: adjust hydrocodone. patient felt he got good relief from ativan as well, so continue. if pain better controlled tomorrow, likely discharge tomorrow maintain prednisone at 60 mg daily no antibiotics continue home probiotics [facility] follow up 06/01/17
[2017-05-23] MEDS: HYDROcodone-APAP 7.5 MG-325 MG TABLET PO PRN ×2 (04:21→10:52)
[2017-05-23] MEDS: IBUPROFEN 800 MG TABLET PO SCH (06:29)
[2017-05-23] MEDS: predniSONE Tab 20 MG TAB PO SCH (08:00)
[2017-05-23] MEDS: PANTOPRAZOLE 40 MG TABLET PO SCH (08:03)
[2017-05-23 08:38] VITALS: RESP 16
[2017-05-23 12:04] VITALS: BP 115/66; TEMP 98.4; O2SAT 96
--- NOTE | 2017-05-23 13:00 | DCSUMMARY ---
Hospitalization Summary Admit Date: 05/21/2017 Discharge Date: 05/23/17 Primary Diagnosis:: Crohn's disease Secondary Diagnosis:: Constipation Hospital Course: This a 36-year-old male with severe Crohn's disease that is very difficult to respond to the medications who had recent exacerbations and continues to have inflammatory changes at the terminal ileum. He was admitted on the seventh with return in worsening abdominal pain, but his history was actually more consistent with constipation and adverse side effects from oxycodone and Percocet. We switched his pain medication regiment anti-inflammatories, hydrocodone, and used Ativan for muscle relaxant and antianxiety effects and the patient did much better with that pain regimen and had a more normal bowel movement regimen. 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 They felt over treatment would just make the patient worse. The patient has follow-up with [facility] for his Crohn's disease and he'll have reevaluation there to see if we can find anything to control medically but it may be that he'll need a terminal ileum revision. We talked about addictive potential of these medications. This patient is better controlled in terms of his pain, no nausea or vomiting, no further constipation or pain with bowel movements, no completes of chest pain , we will send him home. Assessment and Plan: 1. As per discharge assessments noted 2. Disposition: Patient is discharged home. 3. Condition on discharge, stable and improved. 4. Diet: regular diet 5. Activities: resume normal activities, but quit smoking 6. Follow-Up: Home Medications Medication Instructions Recorded Confirmed Type predniSONE Tab [Deltasone Tab] 60 mg PO DAILY #60 tab 05/15/17 05/21/17 Rx Pantoprazole Sodium 20 mg PO DAILY 05/21/17 05/21/17 History HYDROcodone/APAP 7.5/325 Tab 1 - 2 tab PO Q4H PRN #60 tab 05/23/17 Rx [[place] 7.5/325 Tab] Ibuprofen [Motrin] 800 mg PO Q8H #45 tab 05/23/17 Rx LORazepam Tab [Ativan Tab] 1 mg PO BID PRN #10 tab 05/23/[address] Jaffe after [facility] evaluation 2. 7. Medications at the Time of Discharge: 8. Time, care, counseling and coordination of care for this discharge is less than 30 minutes. Exam - Vitals Vital Signs: Vital Signs Temperature 98.4 F Temperature Source Temporal Artery Scan Pulse Rate [Apical] 72 Pulse Rate [Pulse Oximeter] 76 Pulse Rate 60 Respiratory Rate 16 Blood Pressure [Right Arm] 115/66 Blood Pressure [Left Arm] 119/75 Blood Pressure 111/75 Pulse Ox 96 Oxygen Delivery Method Room Air Height 5 ft 11 in Weight 207 lb - General General Appearance: No Acute Distress, Cooperative - Eye Eye Exam: POSITIVE: No Scleral Icterus - ENT ENT Exam: POSITIVE: Mucous Membranes Moist - Respiratory Respiratory Exam: POSITIVE: Clear to Auscultation - Bilaterally, Breathing Non Labored - Cardiovascular Cardiovascular Exam: POSITIVE: RRR, No Murmur, No Clicks, No Gallops, No Rubs, No JVD - GI/Abdominal GI/Abdominal Exam: POSITIVE: Normal Bowel Sounds, Non Tender, Non Distended, Soft - Extremities Extremities Exam: POSITIVE: No Clubbing Present, No Edema Present, No Cyanosis Present - Neurological Neurological Exam: POSITIVE: Alert, Oriented x 3, No Facial Droop, Speech Intact / Clear, Moves All Extremities Equally Patient Problems - Patient Problem List (1) Crohns disease Current Visit: Yes Status: Chronic Onset Date: Unknown Priority: Medium Comment: No exacerbation. Code(s): K50.90 - Crohn's disease, unspecified, without complications Qualifiers: Gastrointestinal tract location: small intestine Digestive disease complication type: unspecified complication Qualified Code(s): K50.019 - Crohn 's disease of small intestine with unspecified complications Category: Medical (2) Constipation Current Visit: Yes Status: Resolved Code(s): K59.00 - Constipation, unspecified Qualifiers: Constipation type: drug induced constipation Qualified Code(s): K59.03 - Drug induced constipation Category: Medical (3) Salmonella Current Visit: Yes Status: Chronic Code(s): A02.9 - Salmonella infection, unspecified Category: Medical
== END 2017-05-23 13:25 | disposition home or self-care (01) | DRG 386 ==
LOC: ER 09:46 → MED/SURG 13:19
PROVIDERS: ADMIT Family Medicine; ATTEND Family Medicine

== ENCOUNTER 2018-02-07 20:02 | Observation (INO) ==
[2018-02-07] MEDS ORDERED: ONDANSETRON 4 MG/2 ML VIAL IVP ONE (20:36)
[2018-02-07] MEDS ORDERED: Sodium Chloride 0.9% 1,000 ML PRIMARY IV ONE (20:36)
[2018-02-07] MEDS ORDERED: HYDROmorphone 2 MG/1 ML IVP ONE ×2 (20:36→22:01)
[2018-02-07 20:58] LABS: BASOPHILS # (AUTO) 0.06 10*3/UL; BASOPHILS % (AUTO) 0.5 % (0-1); EOSINOPHILS # (AUTO) 0.36 10*3/UL; EOSINOPHILS % (AUTO) 3.1 % (0-8); Hematocrit [HCT] 34.6 % (42.0-52.0); Hemoglobin [HGB] 11.4 g/dL (14.0-18.0); LYMPHOCYTES # (AUTO) 1.56 10*3/uL; MEAN CORPUSCULAR HEMOGLOBIN 26.3 PG (27-31); MEAN CORPUSCULAR HGB CONC 32.9 g/dL (33-37); MEAN CORPUSCULAR VOLUME 79.7 FL (80-90); MEAN PLATELET VOLUME 9.4 FL (7.4-12.2); MONOCYTES # (AUTO) 1.09 10*3/UL (0.3-0.8); MONOCYTES % (AUTO) 9.4 % (5-15); NEUTROPHILS # (AUTO) 8.45 10*3/UL; NEUTROPHILS % (AUTO) 73.2 % (50-80); PLATELET MORPHOLOGY COMMENT NORMAL MORPHOLOGY (NORM); RBC MORPHOLOGY COMMENT NORMAL MORPHOLOGY (NORM); RED BLOOD COUNT 4.34 10^6/uL (4.70-6.10); WBC MORPHOLOGY COMMENT NORMAL MORPHOLOGY (NORM)
[2018-02-07 20:59] LABS: BILIRUBIN,URINE NEGATIVE (NEG); CLARITY,URINE CLEAR (CLEAR); COLOR,URINE YELLOW (Y); GLUCOSE, URINE (UA) NEGATIVE (NEG); OCCULT BLOOD,URINE MODERATE (NEG); PH,URINE 5.5 (5.0-8.5); PROTEIN,URINE NEGATIVE (NEG); UROBILINOGEN,URINE 0.2 EU/dL (0.2)
[2018-02-07 21:06] LABS: BACTERIA,URINE RARE; BLOOD UREA NITROGEN 10 mg/dL (7-22); BUN/CREATININE RATIO 8.33 (6-20); SERUM ALBUMIN 3.9 g/dL (3.5-4.8); SQUAMOUS EPITHELIAL CELL,UR FEW; URINE SAMPLE TYPE CLEAN CATCH URINE
--- NOTE | 2018-02-07 22:32 | DI ---
EXAM: CT Abdomen and Pelvis With Intravenous Contrast CLINICAL HISTORY: ITS.REASON abdominal pain; bloody diarrhea Physician Notes: Tech Comments: TECHNIQUE: Axial computed tomography images of the abdomen and pelvis with intravenous contrast. COMPARISON: CT 10/31/17. FINDINGS: Lung bases: Unremarkable. ABDOMEN: Liver: Unremarkable. Gallbladder and bile ducts: No calcified stones. No ductal dilation. Pancreas: Unremarkable. Spleen: Unremarkable. Adrenals: Unremarkable. Kidneys and ureters: Right ureteral stent is well positioned. Mild enhancement of the right urothelium that may suggest inflammation or infection the proper clinical setting. Mild stranding around the ureter. No hydronephrosis. Stomach and bowel: Thickening of bowel segments suggesting active Crohn's disease. Some distended segments also noted. Previous bowels resection. PELVIS: Appendix: Appendix not visualized. Bladder: Unremarkable. Reproductive: Unremarkable. ABDOMEN and PELVIS: Intraperitoneal space: Unremarkable. Bones/joints: Old left transverse process fractures. Spondylolysis at L5. Soft tissues: Unremarkable. Vasculature: Unremarkable. No abdominal aortic aneurysm. Lymph nodes: Mesenteric nodes. IMPRESSION: 1. Right ureteral stent is well positioned. Mild enhancement of the right urothelium that may suggest inflammation or infection the proper clinical setting. Mild stranding around the ureter. No hydronephrosis. 2. Thickening of some bowel segments suggesting active Crohn's disease. Some distended segments also noted.
[2018-02-07] MEDS ORDERED: methylPREDNISolone Succ Inj 125 MG in Sodium Chloride 0.9% 50 ML IV ONE (23:00)
--- NOTE | 2018-02-07 23:22 | PDOC ---
HPI - History of Present Illness History of Present Illness: This very nice 37-year-old gentleman with an unfortunate complicated history of Crohn's disease. He underwent the 3 year surgeries for his Crohn's at the [facility] consistent with bowel resections. During one of these resections is the right ureter was and the he now has a ureteral stent in place and is followed by Dr. Menendez in [place]. 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 Lately he had 9 teeth taken out and he' s been using the full dose ibuprofen for the last the 2 weeks and in the last couple of days she's been having some pretty dark stools including one bowel movement this morning. He is on back on the steroids and also on antibiotics on CAT scan questionable inflammation of his ureter or exacerbation of Crohn's. Hard to differentiate he did have a white count which is now normalized. He feels a back to his normal self today and is dark stools he states have slowed down. Past Medical History Medical History: 1. Crohn's disease, very difficult to control. Has not done well with Biologics to this point including Remicade which caused drug-induced lupus. 2. GERD. 3. 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 Surgical History: 1. Two abdominal surgeries for Crohn's disease including resection with ileostomy and subsequent reversal. The patient also had a ureteral injury at the time of the surgery that required stent placement on the right. 2. Left arm surgery/carpal tunnel with tendon releases and repair. 3. Multiple perianal surgeries for Crohn's disease. 4. Appendectomy. 5. Multiple colonoscopies. 6. EGD, negative. Pertinent Family History: Significant for Crohn's disease in one of his aunts. Past Social History: smokes 2-3 cigarettes daily, , has 2 children. Does not drink alcohol. Tobacco Use: Current Every Day Smoker In the Past 12 Months, Have Used or Abuse Any of the Following Substance: None Medication / Allergies Home Medications: Home Medications 3 Medication Instructions Recorded Confirmed Type Pantoprazole Sodium 20 mg PO DAILY 05/21/17 02/07/18 History lorazepam 1 mg tablet 1 mg PO Q6H PRN #90 tab 01/07/18 02/07/18 Rx hydrocodone 7.5 mg-acetaminophen 1 tab PO Q6H PRN #8 tab 02/06/18 02/07/18 Rx 325 mg tablet Allergies/Adverse Reactions: Allergies 3 Allergy/AdvReac Type Severity Reaction Status Date / Time ciprofloxacin [From Cipro] Allergy Severe SWELLING Verified 02/08/18 06:26 adalimumab [From Humira] Allergy RASH Verified 02/08/18 06:26 meperidine HCl [From Demerol] AdvReac Intermediate VOMITING Verified 02/08/18 06 :26 infliximab [From Remicade] AdvReac NOT Verified 02/08/18 06:26 APPLICABLE Review of Systems - Review of Systems All Systems: Reviewed & No Additional Complaints Except as Stated - Respiratory Respiratory: DENIES: Negative System Review, Cough, Sputum, Dyspnea At Rest, Dyspnea with Exertion, Pleuritic Pain, Hemoptysis, Wheezing, Other, See HPI - Cardiovascular Cardiovascular: DENIES: Negative System Review, Chest Pain, Edema, Syncope, Palpitations, Orthopnea, Paroxysmal Nocturnal Dyspnea, Other, See HPI - Gastrointestinal Gastrointestinal / Abdominal: REPORTS: Nausea, Other (Black tarry stools per rectum) - Genitourinary Genitourinary: DENIES: Negative System Review, Pain, Burning, Hematuria, Incontinence, Urgency, Hesitant Stream, Decreased Stream, Nocutria, Discharge, Sexual Dysfunction, Other, See HPI Exam - Vitals Vital Signs: Vital Signs Temperature 97.2 F Temperature Source Temporal Artery Scan Pulse Rate [Pulse Oximeter] 113 Respiratory Rate 20 Blood Pressure [Left Arm] 136/91 Pulse Ox 100 Oxygen Delivery Method Room Air Height 5 ft 11 in Weight 199 lb - General General Appearance: No Acute Distress, Cooperative - Respiratory Respiratory Exam: POSITIVE: Clear to Auscultation - Bilaterally, Breathing Non Labored, Normal To Percussion, Normal to Percussion and Palpation - Cardiovascular Cardiovascular Exam: POSITIVE: RRR, No Murmur, No Clicks, No Gallops, No Rubs, PMI Non-Displaced - GI/Abdominal GI/Abdominal Exam: POSITIVE: Normal Bowel Sounds, Non Tender, Non Distended, Soft, No Masses, No Hepatomegaly, No Splenomegaly, No Organomegaly - Extremities Extremities Exam: POSITIVE: No Clubbing Present, No Edema Present, No Cyanosis Present - Neurological Neurological Exam: POSITIVE: Alert, Oriented x 3, No Facial Droop, Speech Intact / Clear Results - Labs CBC and BMP: 02/08/18 04:34 02/08/18 04:34 Assessment and Plan - Patient Problems (1) Crohn's disease Current Visit: Yes Status: Chronic Onset Date: 11/22/12 Comment: Unlikely exacerbation at this time I will stop steroids will continue her antibiotics at this point considering the ureteral finding on CT scan I believe this or related to possibly upper GI bleed secondary to ibuprofen intake I will consult general surgery for further evaluation and treatment Code(s): K50.90 - Crohn's disease, unspecified, without complications (2) Gastrointestinal hemorrhage Current Visit: Yes Status: Acute Comment: Protonix IV Code(s): K92.2 - Gastrointestinal hemorrhage, unspecified
[2018-02-07] MEDS ORDERED: LIDOCAINE W/ SODIUM BICARB 0.5 ML SYR SUBD PRN (23:34)
[2018-02-07] MEDS ORDERED: ONDANSETRON 4 MG/2 ML VIAL IVP PRN (23:34)
[2018-02-08] MEDS: Cefepime Inj 2 GM in Sodium Chloride 0.9% 100 ML IV SCH ×3 (00:06→15:36)
[2018-02-08] MEDS: LORazepam 1 MG TABLET PO PRN ×2 (00:07→20:16)
[2018-02-08] MEDS: HYDROcodone-APAP 7.5 MG-325 MG TABLET PO PRN ×4 (00:17→22:13)
[2018-02-08] MEDS: HEPARIN 5000 UNIT/1 ML SUBCUT SCH ×2 (00:42→08:02)
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
[2018-02-08] MEDS: methylPREDNISolone 40 MG/1 ML VIAL IVP SCH ×2 (04:28→11:00)
[2018-02-08 05:01] LABS: BASOPHILS # (AUTO) 0.01 10*3/UL; BASOPHILS % (AUTO) 0.1 % (0-1); EOSINOPHILS # (AUTO) 0.02 10*3/UL; EOSINOPHILS % (AUTO) 0.2 % (0-8); Hematocrit [HCT] 28.3 % (42.0-52.0); Hemoglobin [HGB] 9.1 g/dL (14.0-18.0); LYMPHOCYTES # (AUTO) 0.47 10*3/uL; MEAN CORPUSCULAR HEMOGLOBIN 26.1 PG (27-31); MEAN CORPUSCULAR HGB CONC 32.2 g/dL (33-37); MEAN CORPUSCULAR VOLUME 81.3 FL (80-90); MEAN PLATELET VOLUME 9.3 FL (7.4-12.2); MONOCYTES # (AUTO) 0.05 10*3/UL (0.3-0.8); MONOCYTES % (AUTO) 0.6 % (5-15); NEUTROPHILS # (AUTO) 7.96 10*3/UL; NEUTROPHILS % (AUTO) 93.5 % (50-80); RED BLOOD COUNT 3.48 10^6/uL (4.70-6.10)
[2018-02-08 05:07] LABS: BLOOD UREA NITROGEN 10 mg/dL (7-22); BUN/CREATININE RATIO 11.11 (6-20)
[2018-02-08 05:26] LABS: PLATELET MORPHOLOGY COMMENT NORMAL MORPHOLOGY (NORM); RBC MORPHOLOGY COMMENT SEE COMMENTS (NORM); WBC MORPHOLOGY COMMENT NORMAL MORPHOLOGY (NORM)
[2018-02-08] MEDS ORDERED: OMEPRAZOLE 20 MG CAPSULE PO SCH (07:30)
[2018-02-08] MEDS ORDERED: PANTOPRAZOLE SODIUM 20 MG PO SCH (09:00)
[2018-02-08] MEDS ORDERED: Pantoprazole Inj 40 MG in Normal Saline Flush 10 ML IVP SCH (11:15)
[2018-02-08] MEDS: PANTOPRAZOLE IV 40 MG VIAL IV SCH ×2 (11:51→20:16)
[2018-02-08] MEDS ORDERED: fentaNYL Inj 100 MCG/2 ML VIAL IVP PRN (13:06)
[2018-02-08] MEDS ORDERED: Lactated Ringers 1,000 ML PRIMARY IV ONE (13:32)
[2018-02-08] MEDS: Lactated Ringers 1,000 ML PRIMARY IV SCH (13:37)
--- NOTE | 2018-02-08 13:38 | CONSULT ---
Consult Note - Consult Consult Date: 02/08/18 Reason for Consult: PreOp Consulation : General Surgery Requesting Physician: Dr. Badillo Primary Care Provider: Shayy Camara MD - History of Present Illness History of Present Illness: The patient is a 37-year-old male I'm asked to see for black tarry stools. The patient reports problems started yesterday. Initially the stools were maroon and then became black and tarry. He presented to the emergency room. His hemoglobin was 11.6 and his hematocrit was 34.6. He had a large tarry stool this morning and his hemoglobin was 9.1 and his hematocrit was 28.3. He has some dental work done about 2 weeks ago and has been taking 800 mg of Motrin every 6 hours for the same. He is on 20 mg of omeprazole a day. He does report he has had some indigestion. Patient also has a history of Crohn's disease. He underwent a resection with takedown of his ileostomy but he developed a leak and had another operation. He reports they left some diseased small bowel. He has been on no medicines for his Crohn's for approximately 2 months. He had a CT scan last night. There is some thickened small bowel wall and some distended segments which could be consistent with a flareup of his Crohn's disease. His CBC does not appear significantly different than one done in October 2017. Proceed with esophagogastroduodenoscopy to rule out actively bleeding ulcer or gastritis. Patient is on pantoprazole 40 mg by mouth twice a day at this time. Review of Systems - Gastrointestinal Gastrointestinal / Abdominal: REPORTS: Bloody Stool, Melena, Other (Indigestion) , See HPI Past Medical History Medical History: 1. Crohn's disease, very difficult to control. Has not done well with Biologics to this point including Remicade which caused drug-induced lupus. 2. GERD. 3. 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 Surgical History: 1. Two abdominal surgeries for Crohn's disease including resection with ileostomy and subsequent reversal. The patient also had a ureteral injury at the time of the surgery that required stent placement on the right. 2. Left arm surgery/carpal tunnel with tendon releases and repair. 3. Multiple perianal surgeries for Crohn's disease. 4. Appendectomy. 5. Multiple colonoscopies. 6. EGD, negative. Pertinent Family History: Significant for Crohn's disease in one of his aunts. Past Social History: smokes 2-3 cigarettes daily, , has 2 children. Does not drink alcohol. Tobacco Use: Current Every Day Smoker In the Past 12 Months, Have Used or Abuse Any of the Following Substance: None Medication / Allergies Home Medications: Home Medications 3 Medication Instructions Recorded Confirmed Type Pantoprazole Sodium 20 mg PO DAILY 05/21/17 02/07/18 History lorazepam 1 mg tablet 1 mg PO Q6H PRN #90 tab 01/07/18 02/07/18 Rx hydrocodone 7.5 mg-acetaminophen 1 tab PO Q6H PRN #8 tab 02/06/18 02/07/18 Rx 325 mg tablet Allergies/Adverse Reactions: Allergies 3 Allergy/AdvReac Type Severity Reaction Status Date / Time ciprofloxacin [From Cipro] Allergy Severe SWELLING Verified 02/08/18 06:26 adalimumab [From Humira] Allergy RASH Verified 02/08/18 06:26 meperidine HCl [From Demerol] AdvReac Intermediate VOMITING Verified 02/08/18 06 :26 infliximab [From Remicade] AdvReac NOT Verified 02/08/18 06:26 APPLICABLE Results - Labs CBC and BMP: 02/08/18 04:34 02/08/18 04:34 - Imaging Status: Image Reviewed by Me (And discussed with the radiologist.), Report Reviewed by Me Exam - Vitals Vital Signs: Vital Signs Temperature 97.4 F Temperature Source Temporal Artery Scan Pulse Rate [Pulse Oximeter] 75 Pulse Rate 79 Respiratory Rate 17 Blood Pressure [Left Arm] 107/71 Blood Pressure 119/85 Pulse Ox 95 Oxygen Delivery Method Room Air Height 5 ft 11 in Weight 201 lb 9.6 oz - General General Appearance: No Acute Distress, Cooperative - Cardiovascular Cardiovascular Exam: POSITIVE: RRR - GI/Abdominal GI/Abdominal Exam: POSITIVE: Normal Bowel Sounds, Non Tender, Non Distended, Soft - Neurological Neurological Exam: POSITIVE: Alert, Oriented x 3 - Psychiatric Psychiatric Exam: POSITIVE: Normal Affect, Normal Mood Assessment and Plan - Patient Problems (1) Gastrointestinal hemorrhage Current Visit: Yes Status: Acute Priority: High Onset Date: ~02/07/18 Comment: Proceed with esophagogastroduodenoscopy with biopsy. The procedure has been discussed with the patient in complete yet simple terms including benefits , risks, and alternatives. All questions have been answered. Informed consent has been obtained. Code(s): K92.2 - Gastrointestinal hemorrhage, unspecified (2) Crohn's disease Current Visit: Yes Status: Chronic Priority: Medium Onset Date: 11/22/12 Comment: Some thickened loops of small bowel with some distention. No evidence of obstruction. If the bleeding is not from his stomach or duodenum we'll need to consider starting medications for his Crohn disease. We will discuss with Dr. Wilkinson's post-completion of the upper endoscopy. Code(s): K50.90 - Crohn's disease, unspecified, without complications
[2018-02-08] MEDS ORDERED: MIDAZOLAM 5 MG/1 ML ONE (13:58)
[2018-02-08] MEDS ORDERED: fentaNYL Inj 100 MCG/2 ML VIAL ONE (13:58)
[2018-02-08] MEDS ORDERED: LIDOCAINE HCL/PF 2% (20 MG/ML) - 5 ML SYRINGE ONE (13:58)
[2018-02-08] MEDS ORDERED: LIDOCAINE 2% VISCOUS(20 MG/1 ML) - 15 ML UD CUP PO ONE (13:58)
--- NOTE | 2018-02-08 14:32 | CRNA.PROGR ---
Anesthesia Time - - Start date: 02/08/18 End date: 02/08/18 - Procedure/Recovery Time Anesthesia : Time In: 13:55 Anesthesia : Time Out: 14:29 Anesthesia : Total Time: 34 - Total Anesthesia Time Total Anesthesia Time (minutes): 34 - Other Weight: 91.444 kg Height: 5 ft 11 in Body Mass Index (BMI): 28.0 Physical Status: P2 Anesthesia Type: MAC (with sedation/top)
--- NOTE | 2018-02-08 14:32 | CRNA.PROGR ---
Post Anesthesia Phase II - Post Anesthesia Phase II Patient Stable and Discharged To: Med/Surg Care Assumed By Surgeon: El Carbajal MD Temperature: 97.4 F Pulse Rate: 79 Respiratory Rate: 17 Blood Pressure: 119/85 Pulse Ox: 95 Total Meena Score at Discharge: 10 Post Anesthesia Discharge Criteria Met: Yes
--- NOTE | 2018-02-08 14:33 | GEN.OPNOTE ---
EGD Operative Note Surgery Date: 02/08/18 Preoperative Diagnosis: GI bleed, presumed upper. NSAID use. History of Crohn' s disease. Postoperative Diagnosis: Same. Procedure: Esophagogastroduodenoscopy with biopsy. Surgeon: El Carbajal MD Anesthesia Provider: Gamaliel Maria CRNA Anesthesia Type: MAC Indications: See preoperative diagnosis. Findings: Esophagus: [Normal] GE Junction : [No significant inflammation or ulcers.] Fundus : [Normal] Body : [Normal] Prepyloric : [Mild erythema] Small Intestine : [Normal] A lubricated flexible upper endoscope was inserted and passed through the esophagus and stomach into the duodenum. The duodenum and duodenal bulb were unremarkable. No evidence of new or old blood. No evidence of ulcers. The pyloric channel was patent. There is mild erythema of the antrum. Biopsies were taken. Hemostasis was assured. The scope was retroflexed. The remaining gastric mucosa was normal. Again no evidence of new or old blood. The scope was withdrawn into the distal esophagus. There is no significant inflammation or ulcerations at the GE junction. Biopsies were taken. Hemostasis was assured. The scope was withdrawn through the remainder of a normal-appearing esophagus and brought the hypopharynx under suction completing that portion of the procedure. The patient tolerated the entire procedure well without complication. The patient transferred to medical surgery unit in stable condition. I would keep him on a proton pump inhibitor. Must assume the bleeding is from his known Crohn's disease. 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 I don't think there is any indication to do a colonoscopy at this time. CT scan does show thickening of the small bowel wall with some segmental dilation without obstruction. This was read as consistent with a flareup of his Crohn's disease. I would treat that initially. Please call if I can be of further help. Estimated Blood Loss (mL): 2 Fluids: 400 mL of crystalloid. Pathology: Antral and distal esophageal biopsies were sent for pathologic analysis. Complications: None. Endoscopy Procedures - Endoscopy Procedures Primary Endoscopy Procedure: [id number] : EGD w/Biospy
[2018-02-08] MEDS: predniSONE Tab 20 MG TAB PO SCH (15:37)
[2018-02-09] MEDS: Cefepime Inj 2 GM in Sodium Chloride 0.9% 100 ML IV SCH ×2 (01:32→07:23)
[2018-02-09] MEDS: Lactated Ringers 1,000 ML PRIMARY IV SCH ×2 (01:32→17:41)
[2018-02-09 04:48] LABS: Hematocrit [HCT] 22.4 % (42.0-52.0); Hemoglobin [HGB] 7.1 g/dL (14.0-18.0); MEAN CORPUSCULAR HGB CONC 31.7 g/dL (33-37); MEAN CORPUSCULAR VOLUME 82.1 FL (80-90); MEAN PLATELET VOLUME 9.7 FL (7.4-12.2); RED BLOOD COUNT 2.73 10^6/uL (4.70-6.10)
[2018-02-09] MEDS ORDERED: Sodium Chloride 0.9% 500 ML PRIMARY IV ONE (06:31)
[2018-02-09] MEDS: HYDROcodone-APAP 7.5 MG-325 MG TABLET PO PRN (07:26)
[2018-02-09] MEDS: predniSONE Tab 20 MG TAB PO SCH (08:23)
[2018-02-09] MEDS: PANTOPRAZOLE IV 40 MG VIAL IV SCH ×2 (09:49→20:55)
--- NOTE | 2018-02-09 11:56 | PDOC(PROG) ---
Interval History: Patient doing much better today he had no further bleeding from his rectum or stool no active bleeding ulcers found on EGD. Hemoglobin down to 7 patient accepted to be transfused 2 units of packed red blood cells Objective : Data - Labs CBC and BMP: 02/09/18 04:16 02/08/18 04:34 Objective : Exam - General General Appearance: Cooperative - Respiratory Respiratory Exam: Clear to Auscultation - Bilaterally, Breathing Non Labored, Normal To Percussion, Normal to Percussion and Palpation - Cardiovascular Cardiovascular Exam: RRR, No Murmur, No Clicks, No Gallops, No Rubs, PMI Non- Displaced - GI/Abdominal GI/Abdominal Exam: Normal Bowel Sounds, Non Tender, Non Distended, Soft, No Masses, No Hepatomegaly, No Splenomegaly, No Organomegaly Assessment and Plan - Patient Problems (1) Crohn's disease Current Visit: Yes Status: Chronic Priority: Medium Onset Date: 11/22/12 Comment: Mild exacerbation most likely I started back Prednisone 40 mg daily no further blood in his bowel movements. Code(s): K50.90 - Crohn's disease, unspecified, without complications (2) Gastrointestinal hemorrhage Current Visit: Yes Status: Acute Priority: High Onset Date: ~02/07/18 Comment: EGD showed no active bleeding or ulcers Code(s): K92.2 - Gastrointestinal hemorrhage, unspecified (3) Anemia Current Visit: No Status: Acute Comment: Hemoglobin down to 7 patient agreed to transfusion of 2 units of packed red blood cells he knows of the complications that can arise from this including acute transfusion reaction which sometimes can end up in pulmonary edema and intubation. He understands and would like to proceed Code(s): D64.9 - Anemia, unspecified Qualifiers:
[2018-02-09] MEDS: oxyCODONE-ACETAMINOPHEN 5-325 TAB PO PRN ×2 (19:11→23:41)
[2018-02-10] MEDS: Lactated Ringers 1,000 ML PRIMARY IV SCH (02:32)
[2018-02-10] MEDS: LORazepam 1 MG TABLET PO PRN (02:34)
[2018-02-10 05:36] LABS: BASOPHILS # (AUTO) 0.03 10*3/UL; BASOPHILS % (AUTO) 0.4 % (0-1); EOSINOPHILS # (AUTO) 0.03 10*3/UL; EOSINOPHILS % (AUTO) 0.4 % (0-8); Hematocrit [HCT] 26.2 % (42.0-52.0); Hemoglobin [HGB] 8.4 g/dL (14.0-18.0); MEAN CORPUSCULAR HEMOGLOBIN 26.2 PG (27-31); MEAN CORPUSCULAR HGB CONC 32.1 g/dL (33-37); MEAN CORPUSCULAR VOLUME 81.6 FL (80-90); MEAN PLATELET VOLUME 9.7 FL (7.4-12.2); NEUTROPHILS # (AUTO) 5.99 10*3/UL; NEUTROPHILS % (AUTO) 73.1 % (50-80); RED BLOOD COUNT 3.21 10^6/uL (4.70-6.10)
[2018-02-10 05:43] LABS: PLATELET MORPHOLOGY COMMENT NORMAL MORPHOLOGY (NORM); RBC MORPHOLOGY COMMENT NORMAL MORPHOLOGY (NORM); WBC MORPHOLOGY COMMENT NORMAL MORPHOLOGY (NORM)
[2018-02-10 06:06] LABS: BLOOD UREA NITROGEN 11 mg/dL (7-22)
[2018-02-10] MEDS ORDERED: Magnesium Sulfate 2gm (Premix) 2 GM/50 ML BAG IV ONE (08:11)
[2018-02-10] MEDS: predniSONE Tab 20 MG TAB PO SCH (08:40)
[2018-02-10] MEDS: PANTOPRAZOLE IV 40 MG VIAL IV SCH (08:40)
[2018-02-10] MEDS ORDERED: CYANOCOBALAMIN 1000 MCG/1 ML VIAL SUBCUT ONE (09:00)
[2018-02-10] MEDS ORDERED: POTASSIUM CHLORIDE 20 MEQ TAB PO SCH (09:00)
[2018-02-10 09:13] VITALS: BP 131/83; RESP 17; TEMP 98.8; O2SAT 98
--- NOTE | 2018-02-10 09:55 | DCSUMMARY ---
Hospitalization Summary Hospital Course: Final Discharge Diagnosis: Current Visit Problems Problem Status Onset Code Gastrointestinal hemorrhage Acute ~02/07/18 K92.2 Crohn's disease Chronic 11/22/12 K50.90 Diagnostic Data, Laboratory Data, and Procedures of Signifigance: Laboratory Results 02/09/18 02/10/18 02/10/18 Range/Units 06:43 04:43 04:43 WBC 8.18 (4.8-10.8) 10^3/uL RBC 3.21 L (4.70-6.10) 10^6/uL Hgb 8.4 L (14.0-18.0) g/dL Hct 26.2 L (42.0-52.0) % MCV 81.6 (80-90) FL MCH 26.2 L (27-31) PG MCHC 32.1 L (33-37) g/dL RDW Std Deviation 47.5 (39-50) fL RDW Coeff of Fidel 16.4 H (11.5-14.5) % Plt Count 315 (140-350) 10*3/uL MPV 9.7 (7.4-12.2) FL Immature Gran % (Auto) 0.4 (0-5) % Neut % (Auto) 73.1 (50-80) % Lymph % (Auto) 14.7 (10-50) % Cotton % (Auto) 11.0 (5-15) % Eos % (Auto) 0.4 (0-8) % Baso % (Auto) 0.4 (0-1) % Immature Gran # (Auto) 0.03 10*3/UL Neut # (Auto) 5.99 10*3/UL Lymph # (Auto) 1.20 10*3/uL Cotton # (Auto) 0.90 H (0.3-0.8) 10*3/UL Eos # (Auto) 0.03 10*3/UL Baso # (Auto) 0.03 10*3/UL WBC Morphology Comment Normal morphology (NORM) Plt Morphology Comment Normal morphology (NORM) RBC Morph Comment Normal morphology (NORM) Sodium 140 (135-145) meq/L Potassium 3.2 L D (3.8-5.2) meq/L Chloride 110 (98-112) meq/L Carbon Dioxide 25 (23-33) meq/L Anion Gap 5 (5-20) BUN 11 (7-22) mg/dL Creatinine 1.0 (0.70-1.50) mg/dL Estimated GFR > 60 (>60 ml/min/1.73m(2)) BUN/Creatinine Ratio 11.00 (6-20) Glucose 110 (78-110) mg/dL Calculated Osmolality 289.0 (267-292) mOsm/kg Calcium 8.6 L (8.7-10.7) mg/dL Magnesium 1.7 (1.6-2.4) mg/dL Total Bilirubin 0.1 L (0.3-1.2) mg/dL AST 11 L (21-57) IU/L ALT 26 (21-72) IU/L Alkaline Phosphatase 77 (38-126) IU/L Total Protein 5.7 L (6.1-8.0) g/dL Albumin 3.0 L (3.5-4.8) g/dL Globulin 2.7 (2.50-4.10) g/dL Albumin/Globulin Ratio 1.10 L (1.3-2.0) mg/g Blood Type O POSITIVE Antibody Screen Negative Crossmatch See Detail History and Physical pertinent to Admission: Course of Hospitalization: Is a very nice 37-year-old gentleman with past medical history of Crohn's disease he has been taken a lot of ibuprofen because he had 9 teeth pulled and presented to the ER with large tarry stools with a hemoglobin of 9.1. He underwent EGD which showed no active bleeding ulcer also do was some thickening of his colon on CT scan which could represent a flareup of his Crohn's disease. After hydration his hemoglobin dropped to 7 patient was transfused 2 units of packed red blood cells he is feeling much better today he had no more blood or tarry stools and stools are not bloody I gave him 2 g of mag today we did resume his prednisone 40 mg a day and he will follow-up with relief pharmacist in [place] he was also started on some potassium replacement he has prednisone and potassium at home does not need a prescription he will be discharged home in stable and improved condition he will also start taking iron folic acid and B12 which he also has at home On the date of discharge, the patient was examined: Gen.: No acute distress, alert, nontoxic Heart: Regular rate and rhythm, no murmurs, clicks, gallops, or rubs Lungs: Clear to auscultation bilaterally, breathing is nonlabored Abdomen/GI: Normal tones on auscultation, soft, nontender, nondistended Musculoskeletal/extremities: No clubbing, cyanosis, or edema Vitals reviewed and are listed below Vital Signs (24 hrs) Temp Pulse Pulse Resp BP BP Pulse Ox 02/10/18 09:00 98.8 F 77 17 131/83 98 02/10/18 05:02 97 02/10/18 05:00 97.6 F 66 14 125/78 98 02/10/18 00:56 97.7 F 68 16 125/70 96 02/09/18 21:00 98.8 F 67 18 116/67 97 02/09/18 16:58 98.8 F 72 20 118/77 97 02/09/18 12:19 98.8 F 80 20 124/75 97 02/09/18 11:43 98.1 F 89 20 123/74 98 02/09/18 11:28 97.8 F 75 20 125/81 98 02/09/18 11:13 98.8 F 81 20 126/77 96 02/09/18 10:58 98 F 84 20 119/74 98 02/09/18 10:40 98.8 F 81 20 121/76 97 Assessment and Plan: 1. As per discharge assessments above 2. Disposition: Home 3. Condition on discharge, stable and improved. 4. Diet: regular diet 5. Activities: resume normal activities 6. Follow-Up: 1. PCP 2. March DR perez primary care physician and relief pharmacist in [place] 7. Medications at the Time of Discharge: Home Medications 3 Medication Instructions Recorded Confirmed Type Pantoprazole Sodium 20 mg PO DAILY 05/21/17 02/07/18 History lorazepam 1 mg tablet 1 mg PO Q6H PRN #90 tab 01/07/18 02/07/18 Rx hydrocodone 7.5 mg-acetaminophen 1 tab PO Q6H PRN #8 tab 02/06/18 02/07/18 Rx 325 mg tablet Potassium Chloride [Klor-Con] 40 meq PO BID tab 02/10/18 Rx predniSONE Tab [Deltasone Tab] 40 mg PO DAILY tab 02/10/18 Rx 8. Time, care, counseling and coordination of care for this discharge is greater than 30 minutes. Exam - Vitals Vital Signs: Vital Signs Temperature 98.8 F Temperature Source Axillary Pulse Rate [Pulse Oximeter] 77 Pulse Rate 80 Respiratory Rate 17 Blood Pressure [Left Arm] 131/83 Blood Pressure 124/75 Pulse Ox 98 Oxygen Flow Rate RA Oxygen Delivery Method Room Air Height 5 ft 11 in Weight 205 lb 6.4 oz Patient Problems - Patient Problem List (1) Crohn's disease Current Visit: Yes Status: Chronic Onset Date: 11/22/12 Priority: Medium Code(s): K50.90 - Crohn's disease, unspecified, without complications Category: Medical (2) Gastrointestinal hemorrhage Current Visit: Yes Status: Acute Onset Date: ~02/07/18 Priority: High Code(s): K92.2 - Gastrointestinal hemorrhage, unspecified Category: Medical (3) Anemia Current Visit: No Status: Acute Code(s): D64.9 - Anemia, unspecified Qualifiers: Category: Medical
== END 2018-02-10 11:29 | disposition home or self-care (01) ==
LOC: ER 20:02 → MED/SURG 20:02 → OPS 02-08 13:53 → MED/SURG 02-08 15:00
PROVIDERS: ADMIT Internal Medicine; ATTEND Internal Medicine